=== PATIENT | female | born 1935 | race Caucasian/White ===

== ENCOUNTER 2019-02-11 11:16 | Inpatient (IN) | payer OTHER ==
[~2019-02-11] VITALS: Ht 165.1 cm; Wt 97.5 kg
[~2019-02-11 11:16] MED LIST: HYDROmorphone 2 MG/ML VIAL IV PRN; IV RINGERS,LACTATED 1000ML 1,000 ML IV SCH; LIDOCAINE 1% PF 2 ML VIAL. ID PRN; MORPHINE SULFATE 2 MG/ML VIAL. IV PRN; ONDANSETRON PF 4 MG/2 ML VIAL. IV PRN; PROCHLORPERAZINE 10 MG/2 ML VIAL. IV PRN
[2019-02-11] MEDS ORDERED: ceFAZolin 2GM PREMIX 2 GM/50 ML BAG IV ONE (12:00)
[2019-02-11] MEDS ORDERED: AMLO5TAB10 PO (12:03)
[2019-02-11] MEDS ORDERED: ALBU0.63 NEB (12:03)
[2019-02-11] MEDS ORDERED: AZEL23SP NS (12:05)
[2019-02-11] MEDS ORDERED: FOLI1TAB16 PO (12:06)
[2019-02-11] MEDS ORDERED: FLUT9.9S NS (12:06)
[2019-02-11] MEDS ORDERED: LEVO50TA5 PO (12:07)
[2019-02-11] MEDS ORDERED: VENTOLIN HFA18 GM INH (12:07)
[2019-02-11] MEDS ORDERED: GELATIN SPONGE SIZE 100. ONE (12:07)
[2019-02-11] MEDS ORDERED: LIDOCAINE 1%/EPI 1:100,000 20 ML VIAL. ONE (12:07)
[2019-02-11] MEDS ORDERED: EPINEPHrine SYRINGE 1 MG/10 ML SYRINGE ONE (12:07)
[2019-02-11] MEDS ORDERED: MUPIROCIN 2 % NASAL OINTMENT 22GM TUBE. ONE (12:07)
[2019-02-11] MEDS ORDERED: LISI-130 PO (12:08)
[2019-02-11] MEDS ORDERED: MONT10TA9 PO (12:10)
[2019-02-11] MEDS ORDERED: GLYCOPYRROLATE 1 MG/5 ML VIAL. ONE (13:40)
[2019-02-11] MEDS ORDERED: ROCURONIUM 50 MG/5 ML VIAL. ONE (13:41)
[2019-02-11] MEDS ORDERED: NEOSTIGMINE METHYLSULFATE 5 MG/5 ML SYRINGE. ONE (13:42)
[2019-02-11] MEDS ORDERED: fentaNYL PF VIAL 100 MCG/2 ML VIAL ONE ×4 (13:42→19:32)
[2019-02-11] MEDS ORDERED: OXYMETAZOLINE 0.05% NASAL SPRAY 30ML BOTTLE. NS ONE (13:43)
[2019-02-11] MEDS ORDERED: ePHEDrine PF IN SALINE 50 MG/10 ML SYRINGE. IV ONE (14:35)
[2019-02-11] MEDS ORDERED: hydrALAZINE 20 MG/ML VIAL. ONE (15:19)
[2019-02-11] MEDS ORDERED: CIPROFLOXACIN 0.3% OPHTH SOLUTION 5ML BOTTLE. AU ONE (15:45)
--- NOTE | 2019-02-11 17:32 | PDOC4 ---
IMMEDIATE POST OP NOTE Date: Feb 11, 2019 Pre-Op Diagnosis left tympanic membrane perforation, left chronic otitis media, left chronic mastoiditis, left mixed hearing loss, bilateral eustachian tube dysfunction Post-Op Diagnosis same as above Procedure Performed left tympanomastoidectomy, bilateral eustachian tube dilation Surgeon Dr. Arcelia Pacheco Carpenters Helper none Anesthesiologist Dr. Martinez Anesthesia Type: General Blood Loss 25mL Specimens Obtained left mastoid contents Findings 1. Sclerotic mastoid with mucoid discharge within mastoid cavity and middle ear 2. 25% perforation of posterior-inferior tympanic membrane 3. Ossicles intact and mobile Complications none Operative Note #[id number] ARCELIA PACHECO MD Feb 11, 2019 17:32
[2019-02-11] MEDS: fentaNYL PF VIAL 100 MCG/2 ML VIAL IV PRN ×5 (17:55→21:12)
[2019-02-11] MEDS ORDERED: MUPI22OI2 TP (18:28)
[2019-02-11] MEDS ORDERED: AMOX1TAB61 PO (18:32)
[2019-02-11] MEDS ORDERED: OXYC1TAB15 PO (18:33)
[2019-02-11] MEDS ORDERED: ONDA4TAB7 SL (18:35)
[2019-02-11] MEDS ORDERED: FLOXIN LEFT EAR (18:36)
--- NOTE | 2019-02-11 18:58 | OP ---
DATE OF SURGERY: 02/11/2019 PREOPERATIVE DIAGNOSES: Left tympanic membrane perforation, left chronic otitis media, left chronic mastoiditis, left-sided mixed hearing loss and bilateral eustachian tube dysfunction. POSTOPERATIVE DIAGNOSES: Left tympanic membrane perforation, left chronic otitis media, left chronic mastoiditis, left-sided mixed hearing loss and bilateral eustachian tube dysfunction. PROCEDURE PERFORMED: Left tympanomastoidectomy and bilateral eustachian tube dilation. SURGEON: Arcelia Pacheco MD ANESTHESIA: General endotracheal anesthesia. ANESTHESIOLOGIST: Dr. Martinez. ESTIMATED BLOOD LOSS: 25 mL. SPECIMENS OBTAINED: Left mastoid content was sent for permanent pathology. INDICATIONS FOR SURGERY: The patient is an 84-year-old female with a history of chronic eustachian tube dysfunction requiring multiple sets of pressure equalization tubes in the past. The patient's last set of tubes was approximately 6-7 years ago and resulted in chronic bilateral tympanic membrane perforations. For the past 4 months, the patient has had purulent discharge from the left tympanic membrane that has been refractory to antibiotic eardrops as well as oral antibiotics. After meeting maximum medical therapy and having continued infection, the decision was made the patient undergo the above procedure after risks, benefits, and alternatives of surgery were thoroughly discussed with the patient and informed consent was obtained. INTRAOPERATIVE FINDINGS: 1. A sclerotic mastoid with mucoid discharge within the mastoid cavity and middle ear. 2. A 25% perforation of the posterior inferior tympanic membrane. 3. The ossicular chain was intact and mobile. DESCRIPTION OF PROCEDURE: The patient was brought back to room per anesthesia and intubated in the standard fashion. The patient was then turned 90 degrees in the room. The microscope was used to visualize the patient's left external auditory canal. The patient was found to have a 25% perforation on the inferior aspect of the tympanic membrane. All cerumen was removed from the external auditory canal and a 4-quadrant block of the ear canal was performed using 1% lidocaine with 1:100,000 epinephrine. I also injected the planned postauricular incision in a subcutaneous fashion with 1% lidocaine with 1:100,000 epinephrine. Afrin-soaked pledgets were then inserted in the patient's bilateral nasal cavity. The patient was prepped and draped in the standard fashion. I then used a 30-degree scope to visualize the patient's bilateral nasal cavity. I visualized the patient's nasopharynx. The patient was found to have no significant adenoid tissue within the nasopharynx. I visualized the patient's left eustachian tube orifice. I then placed the Entellus eustachian tube dilation probe and that had been configured to the eustachian tube, was gently inserted into the eustachian tube orifice until the 2 cm jeremie. The balloon was then placed over the probe and insufflated to 12 atmospheres of pressure for 2 minutes. The balloon and probe were then subsequently removed from the eustachian tube orifice and there was no obvious evidence of trauma. An identical procedure was then performed on the right side. After this was completed, the Afrin-soaked pledgets were inserted in the nose for several minutes and subsequently removed. The patient was then redraped and prepped for the left ear surgery. I then thoroughly irrigated the left external auditory canal. The perforation was identified. It was a 25% perforation of the inferior tympanic membrane with some slight granulation tissue posteriorly. I used a Katz pick followed by cup forceps to freshen the edge of the perforation circumferentially and remove any granulation tissue. I then used a curved tympanostomy blade to make a 4 mm incision lateral to the annulus posteriorly. I used a straight blade to make these vertical incisions at 6 and 12 o'clock. I then gently elevated the skin flap in both directions with a house round knife. Topical epinephrine on Gelfoam was placed within the external auditory canal. I then used a 15 blade to make my postauricular incision. I elevated the ear anteriorly. I then harvested a 1 x 1 cm piece of temporalis fascia, this was flattened and dried on the back table. An inverted 7 Palva flap was then incised through the periosteum using the Bovie electrocautery as it elevated the periosteum anteriorly using a Nicholaspert retractor. Once I entered into the external auditory canal, I used a Weitlaner to retract the periosteum. I then under the microscopic guidance elevated the skin of the posterior external auditory canal until I could make communication with my previous incisions. A [place] drain was then placed to elevate the ear anteriorly. Under microscopic guidance, I then elevated the tympanomeatal flap in the standard way using a house round knife followed by a Gimmick elevator. Once I entered into the middle ear, I found thick mucoid discharge present within the middle ear, this was fully aspirated. The ossicular chain was identified. On palpation of the malleus, there was good mobility of the incudostapedial joint. I then performed a mastoidectomy on the side in a standard fashion. Using a 4 x 8 mm round cutting blade, I drilled the mastoid cavity down to Estefani's septum. At this location and at this side, there was significant sclerosis of the mastoid air cells. At Estefani's septum, I dissected through the Estefani's septum and entered into the mastoid and epitympanum by drilling away this Estefani's septum. There was thick mucoid discharge present within this area as well. I entered into the epitympanum in a standard fashion. The limits of my dissection for the mastoidectomy were the tegmen superiorly, the ear canal anteriorly and the sigmoid sinus posteriorly. Once I had drilled away all of the septations, I thoroughly irrigated the middle ear, epitympanum and mastoid using normal saline. There was good flow of the irrigation through the epitympanum and no evidence of attic block. After this was completed, ciprofloxacin-soaked Gelfoam was placed within the epitympanum and mastoid. I then further packed the middle ear and eustachian tube orifice with ciprofloxacin-soaked Gelfoam. I then placed the flattened piece of temporalis fascia and dried and this was placed as a medial graft to the tympanic membrane perforation medial to the tympanic membrane. I then laid the tympanomeatal flap back in the correct position and ensured good contact between circumferentially at the site of perforation between the graft and the tympanomeatal flap, tympanic membrane. I then packed Gelfoam lateral to the tympanic membrane to sandwich the graft together. The [place] drain was then removed. The skin of the external auditory canal was laid back in the correct position and I ensured good eversion of all the skin edges. Ciprofloxacin-soaked Gelfoam was placed further within the middle ear canal and along all the incisions. Mupirocin ointment was then placed in the lateral external auditory canal. Postauricularly, I closed the periosteum using simple interrupted sutures of 3-0 Vicryl. I then placed buried interrupted sutures of 4-0 Vicryl to close the deep dermis and a running locking suture of 5-0 chromic was used to close the skin. Mupirocin ointment was placed along the postauricular incision. There was a slight tear in the skin anteriorly from elevating the ear forward and an ointment was placed along this, it was not deep enough to require any suturing. A Glenn dressing was then applied in the standard fashion. The patient was turned back over to anesthesia and extubated without complication. All sponge, needle and instrument counts were correct at the end of the case. COMPLICATIONS: None. DISPOSITION: Stable and transferred to recovery room. ARCELIA PACHECO MD DR: LINDA/annabel JOB#: [id number] / [id number] LORENA
[2019-02-11] MEDS ORDERED: KETOROLAC 30 MG/ML VIAL. IV PRN (20:15)
[2019-02-11] MEDS ORDERED: ACETAMINOPHEN 500 MG TABLET PO PRN (20:15)
[2019-02-11] MEDS ORDERED: MORPHINE SULFATE 2 MG/ML VIAL. IV PRN (20:45)
[2019-02-11] MEDS: MUPIROCIN 2 % NASAL OINTMENT 22GM TUBE. TP SCH (21:00)
[2019-02-11 21:10] VITALS: BP 208/66
[2019-02-11] MEDS ORDERED: ALBUTEROL SULFATE 2.5 MG/3 ML NEBU. NEB PRN (21:15)
[2019-02-11 21:25] VITALS: BP 174/42
[2019-02-11 21:55] VITALS: BP 172/49
[2019-02-11 22:25] VITALS: BP 161/37
[2019-02-11] MEDS: oxyCODONE/APAP 5/325 1 TAB TABLET PO PRN (22:59)
[2019-02-11 23:25] VITALS: BP 158/67
[2019-02-12] VITALS (7 sets, daily range): BP systolic 127–154; BP diastolic 45–70
[2019-02-12] MEDS: LEVOTHYROXINE 50 MCG TABLET PO SCH (06:05)
[2019-02-12] MEDS: oxyCODONE/APAP 5/325 1 TAB TABLET PO PRN ×3 (06:05→21:16)
[2019-02-12] MEDS: LISINOPRIL 20 MG TABLET PO SCH ×2 (09:00→10:00)
[2019-02-12] MEDS: FOLIC ACID 1 MG TABLET. PO SCH ×2 (09:00→10:00)
[2019-02-12] MEDS: AMOXICILLIN/K CLAV 875/125MG TABLET. PO SCH ×3 (09:00→21:16)
[2019-02-12] MEDS: AZELASTINE NASAL SPRAY 30ML BOTTLE. NS SCH (10:02)
[2019-02-12] MEDS: FLUTICASONE 50MCG/NASAL SPRAY 16GM BOTTLE. NS SCH (10:04)
[2019-02-12] MEDS: MUPIROCIN 2 % NASAL OINTMENT 22GM TUBE. TP SCH ×3 (10:04→21:00)
--- NOTE | 2019-02-12 11:18 | SNU/HH DC ---
DISCHARGE WITH HOME HEALTH DISCHARGE INFORMATION: Condition on Discharge: Stable CODE STATUS: Code Status: Full HOME HEALTH: Face to Face: I certify this patient is under my care and that I, or a nurse practitioner or physician's assistant credit manager working with me, had a face to face encounter that meets the physician face to face encounter requirements with this patient on []. Medical Complications: Other (vertigo) RN For Eval/Treatment: Yes Physical Therapy For: Evalulation/Treatment Occupational Therapy For: Evaluation/Treatment Home Health Aide For: Self-care RECRUITING TEAM LEAD For: Community Resources Pt Meets Homebound Status: Poor coordination w/ amb. POST DISCHARGE ORDERS: Activity Instructions for Disc: Bedrest today DIET AFTER DISCHARGE: Cardiac CERTIFICATION STATEMENT: Certification Statement: Certification Statement: Based on the above finding, I certify that this patient is confined to the home and needs intermittent snf care, physical therapy and/or speech therapy, or continues to need occupational therapy.~ This patient is under my care, and I have initiated the establishment of the plan of care.~ This patient will be followed by myself or a community physician who will periodically review the plan of care. Home Meds Reported Medications [floxin] 0.3% BTL No Conflict Check, 4-5 DROP LEFT EAR BID 02/11/19 Ondansetron Hcl (ZOFRAN) 4 Mg Tablet, 1 TAB SL Q6HRS PRN for NAUSEA/VOMITING, #20 TAB 02/11/19 Oxycodone/Apap 5-325 (PERCOCET 5-325 MG TABLET ) 1 Each Tablet, 1 TAB PO PRN Q6HRS PRN for PAIN, #20 TAB 0 Refills 02/11/19 Amoxicillin/Potassium Clav (AUGMENTIN 875-125 TABLET) 1 Each Tablet, 1 TAB PO BID PRN for SEE COMMENTS, #28 TAB 0 Refills 02/11/19 Mupirocin (MUPIROCIN OINTMENT) 22 Gm Oint...g., 1 DOUG TP TID for WOUND CARE, #1 TUBE 02/11/19 Montelukast Sodium (MONTELUKAST SODIUM TABLET) 10 Mg Tablet, 1 TAB PO DAILY for ALLERGIES, #30 TAB 5 Refills 02/11/19 Lisinopril (LISINOPRIL) 40 Mg Tablet, 1 TAB PO DAILY for B/P, #30 TAB 5 Refills 02/11/19 Levothyroxine Sodium (LEVOTHYROXINE SODIUM) 50 Mcg Tablet, 1 TAB PO DAILY for THYROID, #30 TAB 5 Refills 02/11/19 Albuterol Sulfate (VENTOLIN HFA INHALER) 18 Gm Hfa.aer.ad, 2 PUFF INH Q4HRS PRN for BREATHING, INHALER 0 Refills 02/11/19 Folic Acid (FOLIC ACID) 1 Mg Tablet, 1 TAB PO DAILY for VITAMIN, #90 TAB 1 Refill 02/11/19 Fluticasone Propionate (Flonase Allergy Relief) 9.9 Ml [place].susp, 2 SPRAYS NS DAILY for BREATHING, BOTTLE 02/11/19 Azelastine/Fluticasone (DYMISTA NASAL SPRAY) 23 Gm [place].pump, 1 SPRAY NS DAILY for BREATHING, #23 GM 6 Refills 02/11/19 Albuterol Sulfate (ALBUTEROL SULFATE NEB SOLN) 0.63 Mg/3 Ml Vial.neb, 1 VIAL NEB TID for BREATHING, #225 ML 02/11/19 JESSICA FREEMAN III DO Feb 12, 2019 11:17
--- NOTE | 2019-02-12 11:50 | SSS ---
ADMIT DATE: DATE OF DISCHARGE: 02/12/2019. CHIEF COMPLAINT: Postop day #1 tympanomastoidectomy. HOSPITAL COURSE: The patient is a pleasant 84-year-old female who had a tympanomastoidectomy yesterday by Dr. Arcelia Pacheco today. I saw and examined the patient. She is doing better and wants to go home. We plan to discharge if okay with her surgeon. PHYSICAL EXAMINATION: VITAL SIGNS: Temperature afebrile, pulse 90, respirations 18, blood pressure 144/90. GENERAL: She is alert, cooperative. HEART: Normal S1, S2. LUNGS: Clear. ABDOMEN: Soft. EXTREMITIES: No edema. SKIN: No rash. ENDOCRINE: No thyromegaly. LYMPHATICS: No cervical nodes. HEMATOPOIETIC: No bruising. PSYCHIATRIC: She is anxious. HEENT: She has clean dressing on the left ear. LABORATORY DATA: Not available. ASSESSMENT AND PLAN: Postop day #1, left tympanomastoidectomy. Clinically, she seems fine for discharge. I am going to set up home health. DISPOSITION: Home. ACTIVITY: As tolerated. DIET: Low sodium. MEDICATIONS: Please see the MRAD. TOTAL TIME: 32 minutes. JESSICA FREEMAN DO DR: CATHRYN/annabel JOB#: [id number] / [id number]
[2019-02-12] MEDS: CIPROFLOXACIN HCL 250 MG TABLET. PO SCH ×2 (14:17→21:16)
--- NOTE | 2019-02-12 14:17 | PDOC ---
PROGRESS NOTES Subjective Subjective Patient reports having dizziness since surgery. She is able to tolerate eating. Dizziness is worsened with changes in position. She also reports sore throat. Objective Objective Vital Signs Date Time Temp Pulse Resp B/P (MAP) Pulse Ox O2 Delivery O2 Flow Rate FiO2 02/12/19 14:05 92 Room Air 2.0 02/12/19 11:00 98.5 70 18 132/57 (82) 98.5 Intake and Output 02/12/19 07:00 Intake Total 1590 ml Output Total 350 ml Balance 1240 ml Intake Oral 240 ml IV Total 1350 ml Output Urine Total 300 ml Estimated Blood Loss 50 ml # Voids 1 Physical Exam Physical Exam Ear: left ear dressing n place, ecchymosis of postauricular area, no joseph bleeding. Eyes: No joseph nystagmus. EOMI Melanie-Hallpike: Symptomatically positive on left > right. No rotary nystagmus seen. Assessment Assessment 84 year old female s/p left tympanomastoidectomy to treat chronic mastoiditis. Patient admitted overnight due to elevated blood pressure and confusion after anesthesia. Her vitals are improved today. She is suffering dizziness postoperatively-- no joseph nystagmus. Likely due to left benign paroxysmal positional vertigo after surgery. This should improve with time. Plan Plan of Care - Patient to keep dressing intact another 24 hours. - Patient reports unable to tolerate amoxicillin, switched to ciprofloxacin - Start meclizine for dizziness. Patient also has zofran to take PRN nausea. - Physical therapy evaluation of dizziness and for treatment of suspected left BPPV. Order already written for home care by hospitalist. - Patient has follow up with me next weeks. - Appreciate hospitalist help in management of this patient with multiple co- morbidities. Comment Review of Relevant I have reviewed the following items jeremie (where applicable) has been applied. Medications Current Medications Ondansetron HCl (Zofran) 4 mg PRN Q6HRS PRN IV NAUSEA/VOMITING; Start 02/11/19 at 07:00; Stop 02/12/19 at 06:59; Status DC Fentanyl Citrate (Fentanyl 2ml Vial) 25 mcg PRN Q5MIN PRN IV MILD PAIN Last administered on 02/11/19at 18:25; Start 02/11/19 at 07:00; Stop 02/12/19 at 06:59; Status DC Fentanyl Citrate (Fentanyl 2ml Vial) 50 mcg PRN Q5MIN PRN IV MODERATE TO SEVERE PAIN Last administered on 02/11/19 21:12; Start 02/11/19 at 07:00; Stop 02/12/19 at 06:59; Status DC Morphine Sulfate (Morphine Sulfate) 1 mg PRN Q10MIN PRN IV SEVERE PAIN; Start 02/11/19 at 07:00; Stop 02/12/19 at 06:59; Status DC Ringer's Solution 1,000 ml @ 30 mls/hr Q24H IV Last administered on 02/11/19 12:32; Start 02/11/19 at 07:00; Stop 02/11/19 at 18:59; Status DC Lidocaine HCl (Xylocaine-Mpf 1% 2ml Vial) 2 ml PRN 1X PRN ID PRIOR TO IV START; Start 02/11/19 at 07:00; Stop 02/12/19 at 06:59; Status DC Hydromorphone HCl (Dilaudid) 0.5 mg PRN Q10MIN PRN IV SEV PAIN, Second choice; Start 02/11/19 at 07:00; Stop 02/12/19 at 06:59; Status DC Prochlorperazine Edisylate (Compazine) 5 mg PACU PRN PRN IV NAUSEA, MRX1; Start 02/11/19 at 07:00; Stop 02/12/19 at 06:59; Status DC Cefazolin Sodium/ Dextrose 50 ml @ 100 mls/hr 1X PREOP PRN IV PRIOR TO PROCED URE Last administered on 02/11/19 14:12; Start 02/11/19 at 06:00; Stop 02/11/19 at 18:00; Status DC Gelatin (Gelfoam Size 100) 1 each STK-MED ONCE .ROUTE Last administered on 02/11/19 15:30; Start 02/11/19 at 12:07; Stop 02/11/19 at 13:07; Status DC Mupirocin (Bactroban) 22 edda STK-MED ONCE .ROUTE Last administered on 02/11/19 16:47; Start 02/11/19 at 12:07; Stop 02/11/19 at 13:07; Status DC Epinephrine HCl (EPINEPHrine SYRINGE) 1 mg STK-MED ONCE .ROUTE Last administered on 4/25/19at 15:30; Start 02/11/19 at 12:07; Stop 02/11/19 at 13:07; Status DC Lidocaine/ Epinephrine (LIDOCAINE 1%-EPI 1:100,000 Multi-Dose) 20 ml STK-MED ONCE .ROUTE Last administered on 02/11/19at 14:24; Start 02/11/19 at 12:07; Stop 02/11/19 at 13:07; Status DC Glycopyrrolate (Robinul) 1 mg STK-MED ONCE .ROUTE ; Start 02/11/19 at 13:40; Stop 02/11/19 at 14:10; Status DC Rocuronium [place] (Zemuron) 50 mg STK-MED ONCE .ROUTE ; Start 02/11/19 at 13:41; Stop 02/11/19 at 14:10; Status DC Fentanyl Citrate (Fentanyl 2ml Vial) 100 mcg STK-MED ONCE .ROUTE ; Start 02/11/19 at 13:42; Stop 02/11/19 at 14:10; Status DC Neostigmine Methylsulfate (Neostigmine Methylsulfate) 5 mg STK-MED ONCE .ROUTE ; Start 02/11/19 at 13:42; Stop 02/11/19 at 14:10; Status DC Ephedrine Sulfate (ePHEDrine PF IN SALINE SYRINGE) 50 mg STK-MED ONCE IV ; Start 02/11/19 at 14:35; Stop 02/11/19 at 14:36; Status DC Oxymetazoline HCl (Afrin) 120 spray STK-MED ONCE NS ; Start 02/11/19 at 13:43; Stop 02/11/19 at 14:43; Status DC Fentanyl Citrate (Fentanyl 2ml Vial) 100 mcg STK-MED ONCE .ROUTE ; Start 02/11/19 at 14:43; Stop 02/11/19 at 14:44; Status DC Hydralazine HCl (Apresoline Inj) 20 mg STK-MED ONCE .ROUTE ; Start 02/11/19 at 15:19; Stop 02/11/19 at 15:20; Status DC Fentanyl Citrate (Fentanyl 2ml Vial) 100 mcg STK-MED ONCE .ROUTE ; Start 02/11/19 at 15:20; Stop 02/11/19 at 15:21; Status DC Ciprofloxacin (Ciloxan Ophth) 1 drop 1X ONCE AU Last administered on 02/11/19at 15:45; Start 02/11/19 at 15:45; Stop 02/11/19 at 15:46; Status DC Fentanyl Citrate (Fentanyl 2ml Vial) 100 mcg STK-MED ONCE .ROUTE ; Start 02/11/19 at 19:32; Stop 02/11/19 at 19:33; Status DC Amoxicillin/ Clavulanate Potassium (Augmentin 875/ 125mg) 1 tab BID PO ; Start 02/12/19 at 09:00 Acetaminophen (Tylenol) 1,000 mg PRN Q6HRS PRN PO MILD pain; Start 02/11/19 at 20:15 Ibuprofen (Motrin) 400 mg PRN Q6HRS PRN PO INFLAMMATION; Start 02/11/19 at 20:15 Ketorolac Tromethamine (Toradol 30mg Vial) 30 mg PRN Q6HRS PRN IV PAIN; Start 02/11/19 at 20:15; Stop 02/16/19 at 20:14 Oxycodone/ Acetaminophen (Percocet 5/325) 1 tab PRN Q6HRS PRN PO MODERATE-SEVER PAIN Last administered on 02/12/19at 14:05; Start 02/11/19 at 20:15 Morphine Sulfate (Morphine Sulfate) 1 mg PRN Q2HR PRN IV PAIN; Start 02/11/19 at 20:45 Folic Acid (Folic Acid) 1 mg DAILY PO ; Start 02/12/19 at 09:00 Lisinopril (Prinivil) 40 mg DAILY PO ; Start 02/12/19 at 09:00 Mupirocin (Bactroban) 1 edda TID TP Last administered on 02/12/19at 10:04; Start 02/11/19 at 21:00 Albuterol Sulfate (Ventolin Neb Soln) 2.5 mg PRN Q4HRS PRN NEB SHORTNESS OF BREATH; Start 02/11/19 at 21:15 Azelastine HCl (Astelin) 1 spray DAILY NS Last administered on 02/12/19at 10:02; Start 02/12/19 at 09:00 Fluticasone Propionate (Flonase) 2 spray DAILY NS Last administered on 02/12/19at 10:04; Start 02/12/19 at 09:00 Levothyroxine Sodium (Synthroid) 50 mcg DAILY06 PO Last administered on 02/12/19at 06:05; Start 02/12/19 at 06:00 Montelukast Sodium (Singulair) 10 mg QHS PO ; Start 02/12/19 at 21:00 Cefazolin Sodium/ Dextrose (Ancef 2gm Premix) 2 gm STK-MED ONCE IV ; Start 02/11/19 at 12:00; Stop 02/12/19 at 13:03; Status DC Meclizine HCl (Antivert) 12.5 mg PRN Q6HRS PRN PO DIZZINESS; Start 02/12/19 at 14:00 Ciprofloxacin (Cipro) 500 mg BID PO ; Start 02/12/19 at 14:30 Active Scripts Active Reported [floxin] 0.3% Btl 4-5 Drop LEFT EAR BID Zofran (Ondansetron Hcl) 4 Mg Tablet 1 Tab SL Q6HRS PRN Percocet 5-325 Mg Tablet (Oxycodone/Acetaminophen) 1 Each Tablet 1 Tab PO PRN Q6HRS PRN Augmentin 875-125 Tablet (Amoxicillin/Potassium Clav) 1 Each Tablet 1 Tab PO BID PRN Mupirocin Ointment (Mupirocin) 22 Gm Oint...g. 1 Edda TP TID Montelukast Sodium Tablet (Montelukast Sodium) 10 Mg Tablet 1 Tab PO DAILY Lisinopril 40 Mg Tablet 1 Tab PO DAILY Levothyroxine Sodium 50 Mcg Tablet 1 Tab PO DAILY Ventolin Hfa Inhaler (Albuterol Sulfate) 18 Gm Hfa.aer.ad 2 Puff INH Q4HRS PRN Folic Acid 1 Mg Tablet 1 Tab PO DAILY Flonase Allergy Relief (Fluticasone Propionate) 9.9 Ml Venus.susp 2 Sprays NS DAILY Dymista Nasal Venus (Azelastine/Fluticasone) 23 Gm Venus.pump 1 Venus NS DAILY Albuterol Sulfate Neb Soln (Albuterol Sulfate) 0.63 Mg/3 Ml Vial.neb 1 Vial NEB TID Vitals/I & O Vital Sign - Last 24 Hours 02/11/19 02/11/19 02/11/19 02/11/19 17:24 17:24 17:39 17:54 Temp 99.2 99.2 Pulse 64 65 67 Resp 20 20 20 B/P (MAP) 163/82 131/58 156/104 Pulse Ox 100 100 93 O2 Delivery Mask Simple Mask Simple Mask Room Air O2 Flow Rate 10 10 10 02/11/19 02/11/19 02/11/19 02/11/19 17:55 18:10 18:25 18:25 Temp 99.2 99.2 99.2 99.2 Pulse 60 52 Resp 22 20 20 20 B/P (MAP) 155/60 161/73 Pulse Ox 99 99 100 97 O2 Delivery Simple Mask Nasal Cannula Nasal Cannula Nasal Cannula O2 Flow Rate 10.0 2 2.0 2.0 02/11/19 02/11/19 02/11/19 02/11/19 18:40 18:55 19:00 19:10 Temp 98 98.0 98.0 98.0 98.0 98.0 Pulse 58 56 54 Resp 20 21 20 22 B/P (MAP) 169/59 110/53 178/65 Pulse Ox 100 98 99 O2 Delivery Nasal Cannula Nasal Cannula Nasal Cannula Nasal Cannula O2 Flow Rate 2.0 2.0 2.0 2.0 02/11/19 02/11/19 02/11/19 02/11/19 19:25 19:37 19:40 19:55 Temp 98.0 98.0 98.0 98.0 98.0 98.0 Pulse 56 50 54 Resp 21 23 21 B/P (MAP) 154/63 170/45 169/85 Pulse Ox 100 18 100 99 O2 Delivery Nasal Cannula Nasal Cannula Nasal Cannula Nasal Cannula O2 Flow Rate 2.0 2.0 2.0 2.0 02/11/19 02/11/19 02/11/19 02/11/19 20:10 20:25 21:10 21:10 Temp 98.0 98.0 97.6 98.0 98.0 97.6 Pulse 54 60 68 Resp 20 21 20 B/P (MAP) 138/68 165/71 208/66 (113) Pulse Ox 99 100 91 O2 Delivery Nasal Cannula Nasal Cannula Room Air Nasal Cannula O2 Flow Rate 2.0 2.0 2.0 2.0 02/11/19 02/11/19 02/11/19 02/11/19 21:12 21:25 21:55 22:25 Temp 97.6 98.1 98.1 97.6 98.1 98.1 Pulse 61 65 65 Resp 20 18 18 18 B/P (MAP) 174/42 (86) 172/49 (90) 161/37 (78) Pulse Ox 18 97 91 93 O2 Delivery Nasal Cannula Nasal Cannula Nasal Cannula Nasal Cannula O2 Flow Rate 2.0 2.0 2.0 2.0 02/11/19 02/11/19 02/12/19 02/12/19 22:59 23:25 00:25 03:05 Temp 98.4 98.3 98.0 98.4 98.3 98.0 Pulse 72 59 63 Resp 18 B/P (MAP) 158/67 (97) 150/45 (80) 153/51 (85) Pulse Ox 93 97 99 96 O2 Delivery Nasal Cannula Nasal Cannula Nasal Cannula Nasal Cannula O2 Flow Rate 2.0 2.0 2.0 02/12/19 02/12/19 02/12/19 02/12/19 06:05 07:00 07:10 11:00 Temp 98.2 98.5 98.2 98.5 Pulse 61 70 Resp B/P (MAP) 143/55 (84) 132/57 (82) Pulse Ox 96 91 91 92 O2 Delivery Room Air Nasal Cannula Room Air Nasal Cannula O2 Flow Rate 2.0 2.0 2.0 02/12/19 14:05 Pulse Ox 92 O2 Delivery Room Air O2 Flow Rate 2.0 Intake and Output 02/11/19 02/11/19 02/12/19 15:00 23:00 07:00 Intake Total 1350 ml 240 ml Output Total 350 ml Balance 1000 ml 240 ml KIKE PHILIPPE MD Feb 12, 2019 14:17
[2019-02-12] MEDS: MECLIZINE HCL 12.5 MG TABLET. PO PRN (15:10)
[2019-02-12] MEDS: LACTOBACILLUS RHAMNOSUS GG 1 CAPSULE. PO SCH (21:16)
[2019-02-12] MEDS: MONTELUKAST SODIUM 10 MG TABLET. PO SCH (21:16)
[2019-02-13 03:30] VITALS: BP 175/44
[2019-02-13] MEDS: oxyCODONE/APAP 5/325 1 TAB TABLET PO PRN ×4 (04:16→23:55)
[2019-02-13 06:03] LABS: BASO % 1 % (0-3); EOS # 0.2 x10^3/uL (0.0-0.7); EOS % 4 % (0-3); HEMATOCRIT 37.5 % (36.0-47.0); HEMOGLOBIN 12.1 g/dL (12.0-15.5); LYMPH # 0.5 x10^3/uL (1.0-4.8); LYMPH % 9 % (24-48); MEAN CORPUSCULAR HEMOGLOBIN 31 pg (25-35); MEAN CORPUSCULAR HGB CONC 32 g/dL (31-37); MEAN CORPUSCULAR VOLUME 95 fL (79-100); MONO # 0.6 x10^3/uL (0.0-1.1); MONO % 10 % (0-9); NEUT # 4.4 x10^3uL (1.8-7.7); NEUT % 77 % (31-73); PLATELET COUNT 150 x10^3/uL (140-400); RED BLOOD COUNT 3.97 x10^6/uL (3.50-5.40); RED CELL DISTRIBUTION WIDTH 13.9 % (11.5-14.5); WHITE BLOOD COUNT 5.8 x10^3/uL (4.0-11.0)
[2019-02-13 06:08] LABS: CALCIUM 8.7 mg/dL (8.5-10.1); CREATININE 1.3 mg/dL (0.6-1.0); GFR 39.1; POTASSIUM 4.1 mmol/L (3.5-5.1)
[2019-02-13] MEDS: LEVOTHYROXINE 50 MCG TABLET PO SCH (06:23)
[2019-02-13 07:00] VITALS: BP 159/57
[2019-02-13] MEDS: AMOXICILLIN/K CLAV 875/125MG TABLET. PO SCH (09:00)
[2019-02-13] MEDS: MECLIZINE HCL 12.5 MG TABLET. PO PRN ×2 (10:49→17:10)
[2019-02-13] MEDS: CIPROFLOXACIN HCL 250 MG TABLET. PO SCH ×2 (10:49→22:02)
[2019-02-13] MEDS: FOLIC ACID 1 MG TABLET. PO SCH (10:49)
[2019-02-13] MEDS: LACTOBACILLUS RHAMNOSUS GG 1 CAPSULE. PO SCH ×2 (10:49→22:02)
[2019-02-13 11:00] VITALS: BP 186/70
[2019-02-13] MEDS: LISINOPRIL 20 MG TABLET PO SCH (11:03)
[2019-02-13] MEDS: FLUTICASONE 50MCG/NASAL SPRAY 16GM BOTTLE. NS SCH (11:10)
[2019-02-13] MEDS: MUPIROCIN 2 % NASAL OINTMENT 22GM TUBE. TP SCH ×3 (11:10→21:00)
[2019-02-13] MEDS: AZELASTINE NASAL SPRAY 30ML BOTTLE. NS SCH (11:10)
--- NOTE | 2019-02-13 11:23 | PDOC ---
PROGRESS NOTES Chief Complaint Chief Complaint Tympanomastoidectomy History of Present Illness History of Present Illness Patient was seen resting in bed today, POD2. She states she didn't sleep well last night. States her "head was going to explode" She is not able to stand yet. She has vertigo and weakness. She does not feel well enough to go home. Vitals Vitals Vital Signs Date Time Temp Pulse Resp B/P (MAP) Pulse Ox O2 Delivery O2 Flow Rate FiO2 02/13/19 07:00 98.0 61 18 159/57 (91) 98 Nasal Cannula 2.0 98.0 Physical Exam General: Alert, Oriented X3, Cooperative, No acute distress Heart: Regular rate, Normal S1, Normal S2, No murmurs Lungs: Clear (No wheezes, rales, or rhonchi) Abdomen: Soft, No tenderness, No masses Extremities: No edema, Normal pulses, No tenderness/swelling Skin: No rashes, No breakdown, No significant lesion Labs LABS Laboratory Tests Test 02/13/19 05:10 White Blood Count 5.8 x10^3/uL (4.0-11.0) Red Blood Count 3.97 x10^6/uL (3.50-5.40) Hemoglobin 12.1 g/dL (12.0-15.5) Hematocrit 37.5 % (36.0-47.0) Mean Corpuscular Volume 95 fL (79-100) Mean Corpuscular Hemoglobin 31 pg (25-35) Mean Corpuscular Hemoglobin Concent 32 g/dL (31-37) Red Cell Distribution Width 13.9 % (11.5-14.5) Platelet Count 150 x10^3/uL (140-400) Neutrophils (%) (Auto) 77 % (31-73) Lymphocytes (%) (Auto) 9 % (24-48) Monocytes (%) (Auto) 10 % (0-9) Eosinophils (%) (Auto) 4 % (0-3) Basophils (%) (Auto) 1 % (0-3) Neutrophils # (Auto) 4.4 x10^3uL (1.8-7.7) Lymphocytes # (Auto) 0.5 x10^3/uL (1.0-4.8) Monocytes # (Auto) 0.6 x10^3/uL (0.0-1.1) Eosinophils # (Auto) 0.2 x10^3/uL (0.0-0.7) Basophils # (Auto) 0.0 x10^3/uL (0.0-0.2) Sodium Level 139 mmol/L (136-145) Potassium Level 4.1 mmol/L (3.5-5.1) Chloride Level 101 mmol/L (98-107) Carbon Dioxide Level 34 mmol/L (21-32) Anion Gap 4 (6-14) Blood Urea Nitrogen 16 mg/dL (7-20) Creatinine 1.3 mg/dL (0.6-1.0) Estimated GFR (Cockcroft-Gault) 39.1 Glucose Level 115 mg/dL (70-99) Calcium Level 8.7 mg/dL (8.5-10.1) Review of Systems Review of Systems Patient complains of vertigo and weakness Denies fevers, chills, N/V, CP, SOB, diarrhea. 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 Labs Laboratory Tests Test 02/13/19 05:10 White Blood Count 5.8 x10^3/uL (4.0-11.0) Red Blood Count 3.97 x10^6/uL (3.50-5.40) Hemoglobin 12.1 g/dL (12.0-15.5) Hematocrit 37.5 % (36.0-47.0) Mean Corpuscular Volume 95 fL (79-100) Mean Corpuscular Hemoglobin 31 pg (25-35) Mean Corpuscular Hemoglobin Concent 32 g/dL (31-37) Red Cell Distribution Width 13.9 % (11.5-14.5) Platelet Count 150 x10^3/uL (140-400) Neutrophils (%) (Auto) 77 % (31-73) Lymphocytes (%) (Auto) 9 % (24-48) Monocytes (%) (Auto) 10 % (0-9) Eosinophils (%) (Auto) 4 % (0-3) Basophils (%) (Auto) 1 % (0-3) Neutrophils # (Auto) 4.4 x10^3uL (1.8-7.7) Lymphocytes # (Auto) 0.5 x10^3/uL (1.0-4.8) Monocytes # (Auto) 0.6 x10^3/uL (0.0-1.1) Eosinophils # (Auto) 0.2 x10^3/uL (0.0-0.7) Basophils # (Auto) 0.0 x10^3/uL (0.0-0.2) Sodium Level 139 mmol/L (136-145) Potassium Level 4.1 mmol/L (3.5-5.1) Chloride Level 101 mmol/L (98-107) Carbon Dioxide Level 34 mmol/L (21-32) Anion Gap 4 (6-14) Blood Urea Nitrogen 16 mg/dL (7-20) Creatinine 1.3 mg/dL (0.6-1.0) Estimated GFR (Cockcroft-Gault) 39.1 Glucose Level 115 mg/dL (70-99) Calcium Level 8.7 mg/dL (8.5-10.1) Laboratory Tests Test 02/13/19 05:10 White Blood Count 5.8 x10^3/uL (4.0-11.0) Red Blood Count 3.97 x10^6/uL (3.50-5.40) Hemoglobin 12.1 g/dL (12.0-15.5) Hematocrit 37.5 % (36.0-47.0) Mean Corpuscular Volume 95 fL (79-100) Mean Corpuscular Hemoglobin 31 pg (25-35) Mean Corpuscular Hemoglobin Concent 32 g/dL (31-37) Red Cell Distribution Width 13.9 % (11.5-14.5) Platelet Count 150 x10^3/uL (140-400) Neutrophils (%) (Auto) 77 % (31-73) Lymphocytes (%) (Auto) 9 % (24-48) Monocytes (%) (Auto) 10 % (0-9) Eosinophils (%) (Auto) 4 % (0-3) Basophils (%) (Auto) 1 % (0-3) Neutrophils # (Auto) 4.4 x10^3uL (1.8-7.7) Lymphocytes # (Auto) 0.5 x10^3/uL (1.0-4.8) Monocytes # (Auto) 0.6 x10^3/uL (0.0-1.1) Eosinophils # (Auto) 0.2 x10^3/uL (0.0-0.7) Basophils # (Auto) 0.0 x10^3/uL (0.0-0.2) Sodium Level 139 mmol/L (136-145) Potassium Level 4.1 mmol/L (3.5-5.1) Chloride Level 101 mmol/L (98-107) Carbon Dioxide Level 34 mmol/L (21-32) Anion Gap 4 (6-14) Blood Urea Nitrogen 16 mg/dL (7-20) Creatinine 1.3 mg/dL (0.6-1.0) Estimated GFR (Cockcroft-Gault) 39.1 Glucose Level 115 mg/dL (70-99) Calcium Level 8.7 mg/dL (8.5-10.1) Medications Current Medications Ondansetron HCl (Zofran) 4 mg PRN Q6HRS PRN IV NAUSEA/VOMITING; Start 02/11/19 at 07:00; Stop 02/12/19 at 06:59; Status DC Fentanyl Citrate (Fentanyl 2ml Vial) 25 mcg PRN Q5MIN PRN IV MILD PAIN Last administered on 02/11/19at 18:25; Start 02/11/19 at 07:00; Stop 02/12/19 at 06:59; Status DC Fentanyl Citrate (Fentanyl 2ml Vial) 50 mcg PRN Q5MIN PRN IV MODERATE TO SEVERE PAIN Last administered on 02/11/19at 21:12; Start 02/11/19 at 07:00; Stop 02/12/19 at 06:59; Status DC Morphine Sulfate (Morphine Sulfate) 1 mg PRN Q10MIN PRN IV SEVERE PAIN; Start 02/11/19 at 07:00; Stop 02/12/19 at 06:59; Status DC Ringer's Solution 1,000 ml @ 30 mls/hr Q24H IV Last administered on 02/11/19at 12:32; Start 02/11/19 at 07:00; Stop 02/11/19 at 18:59; Status DC Lidocaine HCl (Xylocaine-Mpf 1% 2ml Vial) 2 ml PRN 1X PRN ID PRIOR TO IV START; Start 02/11/19 at 07:00; Stop 02/12/19 at 06:59; Status DC Hydromorphone HCl (Dilaudid) 0.5 mg PRN Q10MIN PRN IV SEV PAIN, Second choice; Start 02/11/19 at 07:00; Stop 02/12/19 at 06:59; Status DC Prochlorperazine Edisylate (Compazine) 5 mg PACU PRN PRN IV NAUSEA, MRX1; Start 02/11/19 at 07:00; Stop 02/12/19 at 06:59; Status DC Cefazolin Sodium/ Dextrose 50 ml @ 100 mls/hr 1X PREOP PRN IV PRIOR TO PROCEDURE Last administered on 02/11/19at 14:12; Start 02/11/19 at 06:00; Stop 02/11/19 at 18:00; Status DC Gelatin (Gelfoam Size 100) 1 each STK-MED ONCE .ROUTE Last administered on 02/11/19at 15:30; Start 02/11/19 at 12:07; Stop 02/11/19 at 13:07; Status DC Mupirocin (Bactroban) 22 kasia STK-MED ONCE .ROUTE Last administered on 02/11/19at 16:47; Start 02/11/19 at 12:07; Stop 02/11/19 at 13:07; Status DC Epinephrine HCl (EPINEPHrine SYRINGE) 1 mg STK-MED ONCE .ROUTE Last administered on 02/11/19at 15:30; Start 02/11/19 at 12:07; Stop 02/11/19 at 13:07; Status DC Lidocaine/ Epinephrine (LIDOCAINE 1%-EPI 1:100,000 Multi-Dose) 20 ml STK-MED ONCE .ROUTE Last administered on 02/11/19at 14:24; Start 02/11/19 at 12:07; Stop 02/11/19 at 13:07; Status DC Glycopyrrolate (Robinul) 1 mg STK-MED ONCE .ROUTE ; Start 02/11/19 at 13:40; Stop 02/11/19 at 14:10; Status DC Rocuronium [place] (Zemuron) 50 mg STK-MED ONCE .ROUTE ; Start 02/11/19 at 13:41; Stop 02/11/19 at 14:10; Status DC Fentanyl Citrate (Fentanyl 2ml Vial) 100 mcg STK-MED ONCE .ROUTE ; Start 02/11/19 at 13:42; Stop 02/11/19 at 14:10; Status DC Neostigmine Methylsulfate (Neostigmine Methylsulfate) 5 mg STK-MED ONCE .ROUTE ; Start 02/11/19 at 13:42; Stop 02/11/19 at 14:10; Status DC Ephedrine Sulfate (ePHEDrine PF IN SALINE SYRINGE) 50 mg STK-MED ONCE IV ; Start 02/11/19 at 14:35; Stop 02/11/19 at 14:36; Status DC Oxymetazoline HCl (Afrin) 120 spray STK-MED ONCE NS ; Start 02/11/19 at 13:43; Stop 02/11/19 at 14:43; Status DC Fentanyl Citrate (Fentanyl 2ml Vial) 100 mcg STK-MED ONCE .ROUTE ; Start 02/11/19 at 14:43; Stop 02/11/19 at 14:44; Status DC Hydralazine HCl (Apresoline Inj) 20 mg STK-MED ONCE .ROUTE ; Start 02/11/19 at 15:19; Stop 02/11/19 at 15:20; Status DC Fentanyl Citrate (Fentanyl 2ml Vial) 100 mcg STK-MED ONCE .ROUTE ; Start 02/11/19 at 15:20; Stop 02/11/19 at 15:21; Status DC Ciprofloxacin (Ciloxan Ophth) 1 drop 1X ONCE AU Last administered on 02/11/19at 15:45; Start 02/11/19 at 15:45; Stop 02/11/19 at 15:46; Status DC Fentanyl Citrate (Fentanyl 2ml Vial) 100 mcg STK-MED ONCE .ROUTE ; Start 02/11/19 at 19:32; Stop 02/11/19 at 19:33; Status DC Amoxicillin/ Clavulanate Potassium (Augmentin 875/ 125mg) 1 tab BID PO Last administered on 02/12/19at 21:16; Start 02/12/19 at 09:00 Acetaminophen (Tylenol) 1,000 mg PRN Q6HRS PRN PO MILD pain; Start 02/11/19 at 20:15 Ibuprofen (Motrin) 400 mg PRN Q6HRS PRN PO INFLAMMATION; Start 02/11/19 at 20:15 Ketorolac Tromethamine (Toradol 30mg Vial) 30 mg PRN Q6HRS PRN IV PAIN; Start 02/11/19 at 20:15; Stop 02/16/19 at 20:14 Oxycodone/ Acetaminophen (Percocet 5/325) 1 tab PRN Q6HRS PRN PO MODERATE-SEVER PAIN Last administered on 02/13/19at 04:16; Start 02/11/19 at 20:15 Morphine Sulfate (Morphine Sulfate) 1 mg PRN Q2HR PRN IV PAIN; Start 02/11/19 at 20:45 Folic Acid (Folic Acid) 1 mg DAILY PO ; Start 02/12/19 at 09:00 Lisinopril (Prinivil) 40 mg DAILY PO ; Start 02/12/19 at 09:00 Mupirocin (Bactroban) 1 kasia TID TP Last administered on 02/12/19at 14:12; Start 02/11/19 at 21:00 Albuterol Sulfate (Ventolin Neb Soln) 2.5 mg PRN Q4HRS PRN NEB SHORTNESS OF BREATH; Start 02/11/19 at 21:15 Azelastine HCl (Astelin) 1 spray DAILY NS Last administered on 02/12/19at 10:02; Start 02/12/19 at 09:00 Fluticasone Propionate (Flonase) 2 spray DAILY NS Last administered on 02/12/19at 10:04; Start 02/12/19 at 09:00 Levothyroxine Sodium (Synthroid) 50 mcg DAILY06 PO Last administered on 02/13/19at 06:23; Start 02/12/19 at 06:00 Montelukast Sodium (Singulair) 10 mg QHS PO Last administered on 02/12/19at 21:16; Start 02/12/19 at 21:00 Cefazolin Sodium/ Dextrose (Ancef 2gm Premix) 2 gm STK-MED ONCE IV ; Start 02/11/19 at 12:00; Stop 02/12/19 at 13:03; Status DC Meclizine HCl (Antivert) 12.5 mg PRN Q6HRS PRN PO DIZZINESS Last administered on 02/12/19at 15:10; Start 02/12/19 at 14:00 Ciprofloxacin (Cipro) 500 mg BID PO Last administered on 02/12/19at 21:16; Start 02/12/19 at 14:30 Lactobacillus Rhamnosus (Culturelle) 1 cap BID PO Last administered on 02/12/19at 21:16; Start 02/12/19 at 21:00 Active Scripts Active Reported [floxin] 0.3% Btl 4-5 Drop LEFT EAR BID Zofran (Ondansetron Hcl) 4 Mg Tablet 1 Tab SL Q6HRS PRN Percocet 5-325 Mg Tablet (Oxycodone/Acetaminophen) 1 Each Tablet 1 Tab PO PRN Q6HRS PRN Augmentin 875-125 Tablet (Amoxicillin/Potassium Clav) 1 Each Tablet 1 Tab PO BID PRN Mupirocin Ointment (Mupirocin) 22 Gm Oint...g. 1 Kasia TP TID Montelukast Sodium Tablet (Montelukast Sodium) 10 Mg Tablet 1 Tab PO DAILY Lisinopril 40 Mg Tablet 1 Tab PO DAILY Levothyroxine Sodium 50 Mcg Tablet 1 Tab PO DAILY Ventolin Hfa Inhaler (Albuterol Sulfate) 18 Gm Hfa.aer.ad 2 Puff INH Q4HRS PRN Folic Acid 1 Mg Tablet 1 Tab PO DAILY Flonase Allergy Relief (Fluticasone Propionate) 9.9 Ml [place].susp 2 Sprays NS DAILY Dymista Nasal [place] (Azelastine/Fluticasone) 23 Gm [place].pump 1 [place] NS DAILY Albuterol Sulfate Neb Soln (Albuterol Sulfate) 0.63 Mg/3 Ml Vial.neb 1 Vial NEB TID Vitals/I & O Vital Sign - Last 24 Hours 02/12/19 02/12/19 02/12/19 02/12/19 14:05 15:00 15:11 19:15 Temp 98.1 97.8 98.1 97.8 Pulse 88 57 Resp 18 18 B/P (MAP) 127/55 (79) 154/70 (98) Pulse Ox 92 90 92 100 O2 Delivery Room Air Nasal Cannula Nasal Cannula O2 Flow Rate 2.0 2.0 2.0 2.0 02/12/19 02/12/19 02/12/19 02/13/19 19:55 21:16 23:20 03:30 Temp 98.1 98.1 98.1 98.1 Pulse 62 58 Resp 18 20 B/P (MAP) 150/48 (82) 175/44 (87) Pulse Ox 99 100 O2 Delivery Room Air Room Air Nasal Cannula Nasal Cannula O2 Flow Rate 2.0 2.0 02/13/19 02/13/19 02/13/19 04:16 05:16 07:00 Temp 98.0 98.0 Pulse 61 Resp 17 18 B/P (MAP) 159/57 (91) Pulse Ox 98 O2 Delivery Nasal Cannula Room Air Nasal Cannula O2 Flow Rate 2.0 2.0 Intake and Output 02/12/19 02/12/19 02/13/19 14:59 22:59 06:59 Intake Total 480 ml Balance 480 ml JESSICA FREEMAN III DO Feb 13, 2019 11:23
[2019-02-13 15:00] VITALS: BP 145/55
[2019-02-13] MEDS: MUPIROCIN 2 % TOPICAL CREAM 30GM TUBE. TP SCH ×2 (17:11→22:02)
[2019-02-13 19:00] VITALS: BP 139/53
[2019-02-13] MEDS: MONTELUKAST SODIUM 10 MG TABLET. PO SCH (22:02)
[2019-02-13 23:00] VITALS: BP 141/58
[2019-02-14] MEDS: MECLIZINE HCL 12.5 MG TABLET. PO PRN ×2 (00:01→20:43)
[2019-02-14 02:37] VITALS: BP 158/55
[2019-02-14] MEDS: oxyCODONE/APAP 5/325 1 TAB TABLET PO PRN ×2 (06:01→20:43)
[2019-02-14] MEDS: LEVOTHYROXINE 50 MCG TABLET PO SCH (06:01)
[2019-02-14 07:00] VITALS: BP 165/55
[2019-02-14 08:47] LABS: BASO % 1 % (0-3); EOS # 0.2 x10^3/uL (0.0-0.7); EOS % 4 % (0-3); HEMATOCRIT 35.3 % (36.0-47.0); HEMOGLOBIN 11.5 g/dL (12.0-15.5); LYMPH # 0.6 x10^3/uL (1.0-4.8); LYMPH % 12 % (24-48); MEAN CORPUSCULAR HEMOGLOBIN 31 pg (25-35); MEAN CORPUSCULAR HGB CONC 33 g/dL (31-37); MEAN CORPUSCULAR VOLUME 94 fL (79-100); MONO # 0.6 x10^3/uL (0.0-1.1); MONO % 12 % (0-9); NEUT # 3.7 x10^3uL (1.8-7.7); NEUT % 72 % (31-73); PLATELET COUNT 147 x10^3/uL (140-400); RED BLOOD COUNT 3.74 x10^6/uL (3.50-5.40); RED CELL DISTRIBUTION WIDTH 13.7 % (11.5-14.5); WHITE BLOOD COUNT 5.1 x10^3/uL (4.0-11.0)
[2019-02-14] MEDS: MUPIROCIN 2 % NASAL OINTMENT 22GM TUBE. TP SCH ×3 (09:00→20:46)
[2019-02-14 09:01] LABS: CALCIUM 8.7 mg/dL (8.5-10.1); CREATININE 1.3 mg/dL (0.6-1.0); GFR 39.1; POTASSIUM 4.3 mmol/L (3.5-5.1)
[2019-02-14] MEDS: LACTOBACILLUS RHAMNOSUS GG 1 CAPSULE. PO SCH ×2 (10:17→20:43)
[2019-02-14] MEDS: LISINOPRIL 20 MG TABLET PO SCH (10:17)
[2019-02-14] MEDS: FOLIC ACID 1 MG TABLET. PO SCH (10:18)
[2019-02-14] MEDS: CIPROFLOXACIN HCL 250 MG TABLET. PO SCH ×2 (10:19→20:43)
[2019-02-14] MEDS: AZELASTINE NASAL SPRAY 30ML BOTTLE. NS SCH (10:20)
[2019-02-14] MEDS: FLUTICASONE 50MCG/NASAL SPRAY 16GM BOTTLE. NS SCH (10:21)
[2019-02-14] MEDS: MUPIROCIN 2 % TOPICAL CREAM 30GM TUBE. TP SCH ×3 (10:23→20:46)
[2019-02-14 11:00] VITALS: BP 166/74
--- NOTE | 2019-02-14 12:44 | PDOC ---
PROGRESS NOTES Chief Complaint Chief Complaint Tympanomastoidectomy History of Present Illness History of Present Illness Patient was seen sitting in a chair today, POD3. Her daughter, Gin, was in the room today. She is the DOPA and should be called with any concerns. The patient is not well enough to go home. Gin would like her to go to a [facility]. The patient is having some confusion today. Vitals Vitals Vital Signs Date Time Temp Pulse Resp B/P (MAP) Pulse Ox O2 Delivery O2 Flow Rate FiO2 02/14/19 11:00 98.0 60 16 166/74 (104) 97 Nasal Cannula 2.0 98.0 Physical Exam General: Alert, Cooperative, No acute distress Heart: Regular rate, Normal S1, Normal S2, No murmurs Lungs: Clear (No wheezes, rales, or rhonchi) Abdomen: Soft, No tenderness, No masses Extremities: No edema, Normal pulses, No tenderness/swelling Skin: No rashes, No breakdown, No significant lesion Labs LABS Laboratory Tests Test 02/14/19 08:05 White Blood Count 5.1 x10^3/uL (4.0-11.0) Red Blood Count 3.74 x10^6/uL (3.50-5.40) Hemoglobin 11.5 g/dL (12.0-15.5) Hematocrit 35.3 % (36.0-47.0) Mean Corpuscular Volume 94 fL (79-100) Mean Corpuscular Hemoglobin 31 pg (25-35) Mean Corpuscular Hemoglobin Concent 33 g/dL (31-37) Red Cell Distribution Width 13.7 % (11.5-14.5) Platelet Count 147 x10^3/uL (140-400) Neutrophils (%) (Auto) 72 % (31-73) Lymphocytes (%) (Auto) 12 % (24-48) Monocytes (%) (Auto) 12 % (0-9) Eosinophils (%) (Auto) 4 % (0-3) Basophils (%) (Auto) 1 % (0-3) Neutrophils # (Auto) 3.7 x10^3uL (1.8-7.7) Lymphocytes # (Auto) 0.6 x10^3/uL (1.0-4.8) Monocytes # (Auto) 0.6 x10^3/uL (0.0-1.1) Eosinophils # (Auto) 0.2 x10^3/uL (0.0-0.7) Basophils # (Auto) 0.0 x10^3/uL (0.0-0.2) Sodium Level 140 mmol/L (136-145) Potassium Level 4.3 mmol/L (3.5-5.1) Chloride Level 100 mmol/L (98-107) Carbon Dioxide Level 35 mmol/L (21-32) Anion Gap 5 (6-14) Blood Urea Nitrogen 11 mg/dL (7-20) Creatinine 1.3 mg/dL (0.6-1.0) Estimated GFR (Cockcroft-Gault) 39.1 Glucose Level 100 mg/dL (70-99) Calcium Level 8.7 mg/dL (8.5-10.1) Review of Systems Review of Systems Patient is having some vertigo. She denies fevers, chills, N/V, CP, SOB, diarrhea. 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 It is currently not in the hospital. Her daughter has it at home. Recommend not using BIPAP as of now to prevent pressure changes in the ear. Ciprofloxacin 500mg BID PO Mupirocin Meclizine PRN 2L O2 NC PT/OT F/u appointment outpatient next week SNU eval- wants to go to [facility] in [place], possibly tomorrow DNR Comment Review of Relevant I have reviewed the following items jeremie (where applicable) has been applied. Labs Laboratory Tests Test 02/13/19 05:10 02/14/19 08:05 White Blood Count 5.8 x10^3/uL (4.0-11.0) 5.1 x10^3/uL (4.0-11.0) Red Blood Count 3.97 x10^6/uL (3.50-5.40) 3.74 x10^6/uL (3.50-5.40) Hemoglobin 12.1 g/dL (12.0-15.5) 11.5 g/dL (12.0-15.5) Hematocrit 37.5 % (36.0-47.0) 35.3 % (36.0-47.0) Mean Corpuscular Volume 95 fL (79-100) 94 fL (79-100) Mean Corpuscular Hemoglobin 31 pg (25-35) 31 pg (25-35) Mean Corpuscular Hemoglobin Concent 32 g/dL (31-37) 33 g/dL (31-37) Red Cell Distribution Width 13.9 % (11.5-14.5) 13.7 % (11.5-14.5) Platelet Count 150 x10^3/uL (140-400) 147 x10^3/uL (140-400) Neutrophils (%) (Auto) 77 % (31-73) 72 % (31-73) Lymphocytes (%) (Auto) 9 % (24-48) 12 % (24-48) Monocytes (%) (Auto) 10 % (0-9) 12 % (0-9) Eosinophils (%) (Auto) 4 % (0-3) 4 % (0-3) Basophils (%) (Auto) 1 % (0-3) 1 % (0-3) Neutrophils # (Auto) 4.4 x10^3uL (1.8-7.7) 3.7 x10^3uL (1.8-7.7) Lymphocytes # (Auto) 0.5 x10^3/uL (1.0-4.8) 0.6 x10^3/uL (1.0-4.8) Monocytes # (Auto) 0.6 x10^3/uL (0.0-1.1) 0.6 x10^3/uL (0.0-1.1) Eosinophils # (Auto) 0.2 x10^3/uL (0.0-0.7) 0.2 x10^3/uL (0.0-0.7) Basophils # (Auto) 0.0 x10^3/uL (0.0-0.2) 0.0 x10^3/uL (0.0-0.2) Sodium Level 139 mmol/L (136-145) 140 mmol/L (136-145) Potassium Level 4.1 mmol/L (3.5-5.1) 4.3 mmol/L (3.5-5.1) Chloride Level 101 mmol/L (98-107) 100 mmol/L (98-107) Carbon Dioxide Level 34 mmol/L (21-32) 35 mmol/L (21-32) Anion Gap 4 (6-14) 5 (6-14) Blood Urea Nitrogen 16 mg/dL (7-20) 11 mg/dL (7-20) Creatinine 1.3 mg/dL (0.6-1.0) 1.3 mg/dL (0.6-1.0) Estimated GFR (Cockcroft-Gault) 39.1 39.1 Glucose Level 115 mg/dL (70-99) 100 mg/dL (70-99) Calcium Level 8.7 mg/dL (8.5-10.1) 8.7 mg/dL (8.5-10.1) Laboratory Tests Test 02/14/19 08:05 White Blood Count 5.1 x10^3/uL (4.0-11.0) Red Blood Count 3.74 x10^6/uL (3.50-5.40) Hemoglobin 11.5 g/dL (12.0-15.5) Hematocrit 35.3 % (36.0-47.0) Mean Corpuscular Volume 94 fL (79-100) Mean Corpuscular Hemoglobin 31 pg (25-35) Mean Corpuscular Hemoglobin Concent 33 g/dL (31-37) Red Cell Distribution Width 13.7 % (11.5-14.5) Platelet Count 147 x10^3/uL (140-400) Neutrophils (%) (Auto) 72 % (31-73) Lymphocytes (%) (Auto) 12 % (24-48) Monocytes (%) (Auto) 12 % (0-9) Eosinophils (%) (Auto) 4 % (0-3) Basophils (%) (Auto) 1 % (0-3) Neutrophils # (Auto) 3.7 x10^3uL (1.8-7.7) Lymphocytes # (Auto) 0.6 x10^3/uL (1.0-4.8) Monocytes # (Auto) 0.6 x10^3/uL (0.0-1.1) Eosinophils # (Auto) 0.2 x10^3/uL (0.0-0.7) Basophils # (Auto) 0.0 x10^3/uL (0.0-0.2) Sodium Level 140 mmol/L (136-145) Potassium Level 4.3 mmol/L (3.5-5.1) Chloride Level 100 mmol/L (98-107) Carbon Dioxide Level 35 mmol/L (21-32) Anion Gap 5 (6-14) Blood Urea Nitrogen 11 mg/dL (7-20) Creatinine 1.3 mg/dL (0.6-1.0) Estimated GFR (Cockcroft-Gault) 39.1 Glucose Level 100 mg/dL (70-99) Calcium Level 8.7 mg/dL (8.5-10.1) Medications Current Medications Ondansetron HCl (Zofran) 4 mg PRN Q6HRS PRN IV NAUSEA/VOMITING; Start 02/11/19 at 07:00; Stop 02/12/19 at 06:59; Status DC Fentanyl Citrate (Fentanyl 2ml Vial) 25 mcg PRN Q5MIN PRN IV MILD PAIN Last administered on 02/11/19at 18:25; Start 02/11/19 at 07:00; Stop 02/12/19 at 06:59; Status DC Fentanyl Citrate (Fentanyl 2ml Vial) 50 mcg PRN Q5MIN PRN IV MODERATE TO SEVERE PAIN Last administered on 02/11/19at 21:12; Start 02/11/19 at 07:00; Stop 02/12/19 at 06:59; Status DC Morphine Sulfate (Morphine Sulfate) 1 mg PRN Q10MIN PRN IV SEVERE PAIN; Start 02/11/19 at 07:00; Stop 02/12/19 at 06:59; Status DC Ringer's Solution 1,000 ml @ 30 mls/hr Q24H IV Last administered on 02/11/19at 12:32; Start 02/11/19 at 07:00; Stop 02/11/19 at 18:59; Status DC Lidocaine HCl (Xylocaine-Mpf 1% 2ml Vial) 2 ml PRN 1X PRN ID PRIOR TO IV START; Start 02/11/19 at 07:00; Stop 02/12/19 at 06:59; Status DC Hydromorphone HCl (Dilaudid) 0.5 mg PRN Q10MIN PRN IV SEV PAIN, Second choice; Start 02/11/19 at 07:00; Stop 02/12/19 at 06:59; Status DC Prochlorperazine Edisylate (Compazine) 5 mg PACU PRN PRN IV NAUSEA, MRX1; Start 02/11/19 at 07:00; Stop 02/12/19 at 06:59; Status DC Cefazolin Sodium/ Dextrose 50 ml @ 100 mls/hr 1X PREOP PRN IV PRIOR TO PROCEDURE Last administered on 02/11/19at 14:12; Start 02/11/19 at 06:00; Stop 02/11/19 at 18:00; Status DC Gelatin (Gelfoam Size 100) 1 each STK-MED ONCE .ROUTE Last administered on 02/11/19at 15:30; Start 02/11/19 at 12:07; Stop 02/11/19 at 13:07; Status DC Mupirocin (Bactroban) 22 edda STK-MED ONCE .ROUTE Last administered on 02/11/19at 16:47; Start 02/11/19 at 12:07; Stop 02/11/19 at 13:07; Status DC Epinephrine HCl (EPINEPHrine SYRINGE) 1 mg STK-MED ONCE .ROUTE Last adm inistered on 02/11/19at 15:30; Start 02/11/19 at 12:07; Stop 02/11/19 at 13:07; Status DC Lidocaine/ Epinephrine (LIDOCAINE 1%-EPI 1:100,000 Multi-Dose) 20 ml STK-MED ONCE .ROUTE Last administered on 02/11/19at 14:24; Start 02/11/19 at 12:07; Stop 02/11/19 at 13:07; Status DC Glycopyrrolate (Robinul) 1 mg STK-MED ONCE .ROUTE ; Start 02/11/19 at 13:40; Stop 02/11/19 at 14:10; Status DC Rocuronium [place] (Zemuron) 50 mg STK-MED ONCE .ROUTE ; Start 02/11/19 at 13:41; Stop 02/11/19 at 14:10; Status DC Fentanyl Citrate (Fentanyl 2ml Vial) 100 mcg STK-MED ONCE .ROUTE ; Start 02/11/19 at 13:42; Stop 02/11/19 at 14:10; Status DC Neostigmine Methylsulfate (Neostigmine Methylsulfate) 5 mg STK-MED ONCE .ROUTE ; Start 02/11/19 at 13:42; Stop 02/11/19 at 14:10; Status DC Ephedrine Sulfate (ePHEDrine PF IN SALINE SYRINGE) 50 mg STK-MED ONCE IV ; Start 02/11/19 at 14:35; Stop 02/11/19 at 14:36; Status DC Oxymetazoline HCl (Afrin) 120 spray STK-MED ONCE NS ; Start 02/11/19 at 13:43; Stop 02/11/19 at 14:43; Status DC Fentanyl Citrate (Fentanyl 2ml Vial) 100 mcg STK-MED ONCE .ROUTE ; Start 02/11/19 at 14:43; Stop 02/11/19 at 14:44; Status DC Hydralazine HCl (Apresoline Inj) 20 mg STK-MED ONCE .ROUTE ; Start 02/11/19 at 15:19; Stop 02/11/19 at 15:20; Status DC Fentanyl Citrate (Fentanyl 2ml Vial) 100 mcg STK-MED ONCE .ROUTE ; Start 02/11/19 at 15:20; Stop 02/11/19 at 15:21; Status DC Ciprofloxacin (Ciloxan Ophth) 1 drop 1X ONCE AU Last administered on 02/11/19at 15:45; Start 02/11/19 at 15:45; Stop 02/11/19 at 15:46; Status DC Fentanyl Citrate (Fentanyl 2ml Vial) 100 mcg STK-MED ONCE .ROUTE ; Start 02/11/19 at 19:32; Stop 02/11/19 at 19:33; Status DC Amoxicillin/ Clavulanate Potassium (Augmentin 875/ 125mg) 1 tab BID PO Last administered on 02/12/19at 21:16; Start 02/12/19 at 09:00; Stop 02/13/19 at 15:57; Status DC Acetaminophen (Tylenol) 1,000 mg PRN Q6HRS PRN PO MILD pain; Start 02/11/19 at 20:15 Ibuprofen (Motrin) 400 mg PRN Q6HRS PRN PO INFLAMMATION; Start 02/11/19 at 20:15 Ketorolac Tromethamine (Toradol 30mg Vial) 30 mg PRN Q6HRS PRN IV PAIN; Start 02/11/19 at 20:15; Stop 02/16/19 at 20:14 Oxycodone/ Acetaminophen (Percocet 5/325) 1 tab PRN Q6HRS PRN PO MODERATE-SEVER PAIN Last administered on 02/14/19at 06:01; Start 02/11/19 at 20:15 Morphine Sulfate (Morphine Sulfate) 1 mg PRN Q2HR PRN IV PAIN; Start 02/11/19 at 20:45 Folic Acid (Folic Acid) 1 mg DAILY PO Last administered on 02/14/19 10:18; Start 02/12/19 at 09:00 Lisinopril (Prinivil) 40 mg DAILY PO Last administered on 02/14/19 10:17; Start 02/12/19 at 09:00 Mupirocin (Bactroban) 1 edda TID TP Last administered on 02/14/19 09:00; Start 02/11/19 at 21:00 Albuterol Sulfate (Ventolin Neb Soln) 2.5 mg PRN Q4HRS PRN NEB SHORTNESS OF BREATH; Start 02/11/19 at 21:15 Azelastine HCl (Astelin) 1 spray DAILY NS Last administered on 02/14/19 10:20; Start 02/12/19 at 09:00 Fluticasone Propionate (Flonase) 2 spray DAILY NS Last administered on 02/14/19 10:21; Start 02/12/19 at 09:00 Levothyroxine Sodium (Synthroid) 50 mcg DAILY06 PO Last administered on 02/14 06:01; Start 02/12/19 at 06:00 Montelukast Sodium (Singulair) 10 mg QHS PO Last administered on 02/13/19at 22:02; Start 02/12/19 at 21:00 Cefazolin Sodium/ Dextrose (Ancef 2gm Premix) 2 gm STK-MED ONCE IV ; Start 02/11/19 at 12:00; Stop 02/12/19 at 13:03; Status DC Meclizine HCl (Antivert) 12.5 mg PRN Q6HRS PRN PO DIZZINESS Last administered on 02/14/19at 00:01; Start 02/12/19 at 14:00 Ciprofloxacin (Cipro) 500 mg BID PO Last administered on 02/14/19at 10:19; Start 02/12/19 at 14:30 Lactobacillus Rhamnosus (Culturelle) 1 cap BID PO Last administered on 02/14/19at 10:17; Start 02/12/19 at 21:00 Throat Lozenges (Cepacol Sore Throat Lozenge) 1 joe PRN Q2HRS PRN PO SORE THROAT; Start 02/13/19 at 16:00 Mupirocin (Bactroban) 1 edda TID TP Last administered on 02/14/19at 10:23; Start 02/13/19 at 16:30 Active Scripts Active Reported [floxin] 0.3% Btl 4-5 Drop LEFT EAR BID Zofran (Ondansetron Hcl) 4 Mg Tablet 1 Tab SL Q6HRS PRN Percocet 5-325 Mg Tablet (Oxycodone/Acetaminophen) 1 Each Tablet 1 Tab PO PRN Q6HRS PRN Augmentin 875-125 Tablet (Amoxicillin/Potassium Clav) 1 Each Tablet 1 Tab PO BID PRN Mupirocin Ointment (Mupirocin) 22 Gm Oint...g. 1 Edda TP TID Montelukast Sodium Tablet (Montelukast Sodium) 10 Mg Tablet 1 Tab PO DAILY Lisinopril 40 Mg Tablet 1 Tab PO DAILY Levothyroxine Sodium 50 Mcg Tablet 1 Tab PO DAILY Ventolin Hfa Inhaler (Albuterol Sulfate) 18 Gm Hfa.aer.ad 2 Puff INH Q4HRS PRN Folic Acid 1 Mg Tablet 1 Tab PO DAILY Flonase Allergy Relief (Fluticasone Propionate) 9.9 Ml [place].susp 2 Sprays NS DAILY Dymista Nasal [place] (Azelastine/Fluticasone) 23 Gm [place].pump 1 [place] NS DAILY Albuterol Sulfate Neb Soln (Albuterol Sulfate) 0.63 Mg/3 Ml Vial.neb 1 Vial NEB TID Vitals/I & O Vital Sign - Last 24 Hours 02/13/19 02/13/19 02/13/19 02/13/19 15:00 17:10 19:00 19:45 Temp 98.2 98.4 98.2 98.4 Pulse 60 68 Resp 18 18 B/P (MAP) 145/55 (85) 139/53 (81) Pulse Ox 97 98 O2 Delivery Nasal Cannula Room Air Nasal Cannula Room Air O2 Flow Rate 2.0 2.0 02/13/19 02/13/19 02/14/19 02/14/19 23:00 23:55 02:37 06:01 Temp 98.1 97.7 98.1 97.7 Pulse 59 64 Resp 18 16 B/P (MAP) 141/58 (85) 158/55 (89) Pulse Ox 97 95 O2 Delivery Nasal Cannula Room Air Nasal Cannula Room Air O2 Flow Rate 2.0 2.0 02/14/19 02/14/19 02/14/19 02/14/19 07:00 10:17 10:20 11:00 Temp 98.1 98.0 98.1 98.0 Pulse 68 68 60 Resp 18 16 B/P (MAP) 165/55 (91) 165/55 166/74 (104) Pulse Ox 97 97 97 O2 Delivery Room Air Nasal Cannula Nasal Cannula O2 Flow Rate 2.0 2.0 Intake and Output 02/13/19 02/13/19 02/14/19 14:59 22:59 06:59 Intake Total 360 ml 240 ml Balance 360 ml 240 ml JESSICA FREEMAN III DO Feb 14, 2019 12:44
[2019-02-14 15:00] VITALS: BP 187/65
[2019-02-14 19:00] VITALS: BP 165/54
[2019-02-14] MEDS: IPRATRPIUM/ALBUTEROL 0.5/2.5MG 3 ML NEBU. NEB SCH (20:26)
[2019-02-14] MEDS: MONTELUKAST SODIUM 10 MG TABLET. PO SCH (20:44)
[2019-02-14 23:00] VITALS: BP 153/42
[2019-02-15 03:00] VITALS: BP 167/80
[2019-02-15] MEDS: LEVOTHYROXINE 50 MCG TABLET PO SCH ×2 (06:00→08:59)
[2019-02-15 07:00] VITALS: BP 175/61
[2019-02-15 07:12] LABS: BASO % 1 % (0-3); EOS # 0.2 x10^3/uL (0.0-0.7); EOS % 4 % (0-3); HEMATOCRIT 33.9 % (36.0-47.0); HEMOGLOBIN 10.9 g/dL (12.0-15.5); LYMPH # 0.7 x10^3/uL (1.0-4.8); LYMPH % 16 % (24-48); MEAN CORPUSCULAR HEMOGLOBIN 30 pg (25-35); MEAN CORPUSCULAR HGB CONC 32 g/dL (31-37); MEAN CORPUSCULAR VOLUME 94 fL (79-100); MONO # 0.7 x10^3/uL (0.0-1.1); MONO % 16 % (0-9); NEUT # 2.6 x10^3uL (1.8-7.7); NEUT % 63 % (31-73); PLATELET COUNT 137 x10^3/uL (140-400); RED CELL DISTRIBUTION WIDTH 13.8 % (11.5-14.5); WHITE BLOOD COUNT 4.2 x10^3/uL (4.0-11.0)
[2019-02-15 07:22] LABS: CALCIUM 8.5 mg/dL (8.5-10.1); CREATININE 1.1 mg/dL (0.6-1.0); GFR 47.4; POTASSIUM 4.1 mmol/L (3.5-5.1)
[2019-02-15] MEDS: IPRATRPIUM/ALBUTEROL 0.5/2.5MG 3 ML NEBU. NEB SCH ×4 (07:49→20:14)
[2019-02-15] MEDS: MUPIROCIN 2 % NASAL OINTMENT 22GM TUBE. TP SCH ×3 (08:56→19:46)
[2019-02-15] MEDS: AZELASTINE NASAL SPRAY 30ML BOTTLE. NS SCH (08:56)
[2019-02-15] MEDS: FLUTICASONE 50MCG/NASAL SPRAY 16GM BOTTLE. NS SCH (08:56)
[2019-02-15] MEDS: LACTOBACILLUS RHAMNOSUS GG 1 CAPSULE. PO SCH ×2 (08:57→19:45)
[2019-02-15] MEDS: CIPROFLOXACIN HCL 250 MG TABLET. PO SCH ×2 (08:58→19:46)
[2019-02-15] MEDS: oxyCODONE/APAP 5/325 1 TAB TABLET PO PRN ×2 (08:58→19:45)
[2019-02-15] MEDS: FOLIC ACID 1 MG TABLET. PO SCH (08:59)
[2019-02-15] MEDS: LISINOPRIL 20 MG TABLET PO SCH (08:59)
[2019-02-15] MEDS: MUPIROCIN 2 % TOPICAL CREAM 30GM TUBE. TP SCH ×3 (09:00→19:46)
--- NOTE | 2019-02-15 10:35 | PDOC ---
PROGRESS NOTES Chief Complaint Chief Complaint Tympanomastoidectomy History of Present Illness History of Present Illness Patient was seen sitting in a chair today, POD3. she is still not improved with unsteady gait The patient is not well enough to go home. Gin would like her to go to a [facility]. The patient is having some confusion today. Vitals Vitals Vital Signs Date Time Temp Pulse Resp B/P (MAP) Pulse Ox O2 Delivery O2 Flow Rate FiO2 02/15/19 10:09 16 Nasal Cannula 2.0 02/15/19 08:59 75 167/80 02/15/19 07:52 98 02/15/19 07:00 98.4 98.4 Physical Exam General: Alert, Cooperative, No acute distress Heart: Regular rate, Normal S1, Normal S2, No murmurs Lungs: Clear (No wheezes, rales, or rhonchi) Abdomen: Normal bowel sounds, Soft, No tenderness, No masses Extremities: No edema, Normal pulses, No tenderness/swelling Skin: No rashes, No breakdown, No significant lesion Labs LABS Laboratory Tests Test 02/15/19 06:10 White Blood Count 4.2 x10^3/uL (4.0-11.0) Red Blood Count 3.60 x10^6/uL (3.50-5.40) Hemoglobin 10.9 g/dL (12.0-15.5) Hematocrit 33.9 % (36.0-47.0) Mean Corpuscular Volume 94 fL (79-100) Mean Corpuscular Hemoglobin 30 pg (25-35) Mean Corpuscular Hemoglobin Concent 32 g/dL (31-37) Red Cell Distribution Width 13.8 % (11.5-14.5) Platelet Count 137 x10^3/uL (140-400) Neutrophils (%) (Auto) 63 % (31-73) Lymphocytes (%) (Auto) 16 % (24-48) Monocytes (%) (Auto) 16 % (0-9) Eosinophils (%) (Auto) 4 % (0-3) Basophils (%) (Auto) 1 % (0-3) Neutrophils # (Auto) 2.6 x10^3uL (1.8-7.7) Lymphocytes # (Auto) 0.7 x10^3/uL (1.0-4.8) Monocytes # (Auto) 0.7 x10^3/uL (0.0-1.1) Eosinophils # (Auto) 0.2 x10^3/uL (0.0-0.7) Basophils # (Auto) 0.0 x10^3/uL (0.0-0.2) Sodium Level 139 mmol/L (136-145) Potassium Level 4.1 mmol/L (3.5-5.1) Chloride Level 100 mmol/L (98-107) Carbon Dioxide Level 34 mmol/L (21-32) Anion Gap 5 (6-14) Blood Urea Nitrogen 13 mg/dL (7-20) Creatinine 1.1 mg/dL (0.6-1.0) Estimated GFR (Cockcroft-Gault) 47.4 Glucose Level 104 mg/dL (70-99) Calcium Level 8.5 mg/dL (8.5-10.1) Comment Review of Relevant I have reviewed the following items jeremie (where applicable) has been applied. Labs Laboratory Tests Test 02/14/19 08:05 02/15/19 06:10 White Blood Count 5.1 x10^3/uL (4.0-11.0) 4.2 x10^3/uL (4.0-11.0) Red Blood Count 3.74 x10^6/uL (3.50-5.40) 3.60 x10^6/uL (3.50-5.40) Hemoglobin 11.5 g/dL (12.0-15.5) 10.9 g/dL (12.0-15.5) Hematocrit 35.3 % (36.0-47.0) 33.9 % (36.0-47.0) Mean Corpuscular Volume 94 fL (79-100) 94 fL (79-100) Mean Corpuscular Hemoglobin 31 pg (25-35) 30 pg (25-35) Mean Corpuscular Hemoglobin Concent 33 g/dL (31-37) 32 g/dL (31-37) Red Cell Distribution Width 13.7 % (11.5-14.5) 13.8 % (11.5-14.5) Platelet Count 147 x10^3/uL (140-400) 137 x10^3/uL (140-400) Neutrophils (%) (Auto) 72 % (31-73) 63 % (31-73) Lymphocytes (%) (Auto) 12 % (24-48) 16 % (24-48) Monocytes (%) (Auto) 12 % (0-9) 16 % (0-9) Eosinophils (%) (Auto) 4 % (0-3) 4 % (0-3) Basophils (%) (Auto) 1 % (0-3) 1 % (0-3) Neutrophils # (Auto) 3.7 x10^3uL (1.8-7.7) 2.6 x10^3uL (1.8-7.7) Lymphocytes # (Auto) 0.6 x10^3/uL (1.0-4.8) 0.7 x10^3/uL (1.0-4.8) Monocytes # (Auto) 0.6 x10^3/uL (0.0-1.1) 0.7 x10^3/uL (0.0-1.1) Eosinophils # (Auto) 0.2 x10^3/uL (0.0-0.7) 0.2 x10^3/uL (0.0-0.7) Basophils # (Auto) 0.0 x10^3/uL (0.0-0.2) 0.0 x10^3/uL (0.0-0.2) Sodium Level 140 mmol/L (136-145) 139 mmol/L (136-145) Potassium Level 4.3 mmol/L (3.5-5.1) 4.1 mmol/L (3.5-5.1) Chloride Level 100 mmol/L (98-107) 100 mmol/L (98-107) Carbon Dioxide Level 35 mmol/L (21-32) 34 mmol/L (21-32) Anion Gap 5 (6-14) 5 (6-14) Blood Urea Nitrogen 11 mg/dL (7-20) 13 mg/dL (7-20) Creatinine 1.3 mg/dL (0.6-1.0) 1.1 mg/dL (0.6-1.0) Estimated GFR (Cockcroft-Gault) 39.1 47.4 Glucose Level 100 mg/dL (70-99) 104 mg/dL (70-99) Calcium Level 8.7 mg/dL (8.5-10.1) 8.5 mg/dL (8.5-10.1) Laboratory Tests Test 02/15/19 06:10 White Blood Count 4.2 x10^3/uL (4.0-11.0) Red Blood Count 3.60 x10^6/uL (3.50-5.40) Hemoglobin 10.9 g/dL (12.0-15.5) Hematocrit 33.9 % (36.0-47.0) Mean Corpuscular Volume 94 fL (79-100) Mean Corpuscular Hemoglobin 30 pg (25-35) Mean Corpuscular Hemoglobin Concent 32 g/dL (31-37) Red Cell Distribution Width 13.8 % (11.5-14.5) Platelet Count 137 x10^3/uL (140-400) Neutrophils (%) (Auto) 63 % (31-73) Lymphocytes (%) (Auto) 16 % (24-48) Monocytes (%) (Auto) 16 % (0-9) Eosinophils (%) (Auto) 4 % (0-3) Basophils (%) (Auto) 1 % (0-3) Neutrophils # (Auto) 2.6 x10^3uL (1.8-7.7) Lymphocytes # (Auto) 0.7 x10^3/uL (1.0-4.8) Monocytes # (Auto) 0.7 x10^3/uL (0.0-1.1) Eosinophils # (Auto) 0.2 x10^3/uL (0.0-0.7) Basophils # (Auto) 0.0 x10^3/uL (0.0-0.2) Sodium Level 139 mmol/L (136-145) Potassium Level 4.1 mmol/L (3.5-5.1) Chloride Level 100 mmol/L (98-107) Carbon Dioxide Level 34 mmol/L (21-32) Anion Gap 5 (6-14) Blood Urea Nitrogen 13 mg/dL (7-20) Creatinine 1.1 mg/dL (0.6-1.0) Estimated GFR (Cockcroft-Gault) 47.4 Glucose Level 104 mg/dL (70-99) Calcium Level 8.5 mg/dL (8.5-10.1) Medications Current Medications Ondansetron HCl (Zofran) 4 mg PRN Q6HRS PRN IV NAUSEA/VOMITING; Start 02/11/19 at 07:00; Stop 02/12/19 at 06:59; Status DC Fentanyl Citrate (Fentanyl 2ml Vial) 25 mcg PRN Q5MIN PRN IV MILD PAIN Last administered on 02/11/19at 18:25; Start 02/11/19 at 07:00; Stop 02/12/19 at 06:59; Status DC Fentanyl Citrate (Fentanyl 2ml Vial) 50 mcg PRN Q5MIN PRN IV MODERATE TO SEVERE PAIN Last administered on 02/11/19at 21:12; Start 02/11/19 at 07:00; Stop 02/12/19 at 06:59; Status DC Morphine Sulfate (Morphine Sulfate) 1 mg PRN Q10MIN PRN IV SEVERE PAIN; Start 02/11/19 at 07:00; Stop 02/12/19 at 06:59; Status DC Ringer's Solution 1,000 ml @ 30 mls/hr Q24H IV Last administered on 02/11/19at 12:32; Start 02/11/19 at 07:00; Stop 02/11/19 at 18:59; Status DC Lidocaine HCl (Xylocaine-Mpf 1% 2ml Vial) 2 ml PRN 1X PRN ID PRIOR TO IV START; Start 02/11/19 at 07:00; Stop 02/12/19 at 06:59; Status DC Hydromorphone HCl (Dilaudid) 0.5 mg PRN Q10MIN PRN IV SEV PAIN, Second choice; Start 02/11/19 at 07:00; Stop 02/12/19 at 06:59; Status DC Prochlorperazine Edisylate (Compazine) 5 mg PACU PRN PRN IV NAUSEA, MRX1; Start 02/11/19 at 07:00; Stop 02/12/19 at 06:59; Status DC Cefazolin Sodium/ Dextrose 50 ml @ 100 mls/hr 1X PREOP PRN IV PRIOR TO PROCEDURE Last administered on 02/11/19at 14:12; Start 02/11/19 at 06:00; Stop 02/11/19 at 18:00; Status DC Gelatin (Gelfoam Size 100) 1 each STK-MED ONCE .ROUTE Last administered on 02/11/19at 15:30; Start 02/11/19 at 12:07; Stop 02/11/19 at 13:07; Status DC Mupirocin (Bactroban) 22 edda STK-MED ONCE .ROUTE Last administered on 02/11/19at 16:47; Start 02/11/19 at 12:07; Stop 02/11/19 at 13:07; Status DC Epinephrine HCl (EPINEPHrine SYRINGE) 1 mg STK-MED ONCE .ROUTE Last administered on 02/11/19at 15:30; Start 02/11/19 at 12:07; Stop 02/11/19 at 13:07; Status DC Lidocaine/ Epinephrine (LIDOCAINE 1%-EPI 1:100,000 Multi-Dose) 20 ml STK-MED ONCE .ROUTE Last administered on 02/11/19at 14:24; Start 02/11/19 at 12:07; Stop 02/11/19 at 13:07; Status DC Glycopyrrolate (Robinul) 1 mg STK-MED ONCE .ROUTE ; Start 02/11/19 at 13:40; Stop 02/11/19 at 14:10; Status DC Rocuronium Gravette (Zemuron) 50 mg STK-MED ONCE .ROUTE ; Start 02/11/19 at 13:41; Stop 02/11/19 at 14:10; Status DC Fentanyl Citrate (Fentanyl 2ml Vial) 100 mcg STK-MED ONCE .ROUTE ; Start 02/11/19 at 13:42; Stop 02/11/19 at 14:10; Status DC Neostigmine Methylsulfate (Neostigmine Methylsulfate) 5 mg STK-MED ONCE .ROUTE ; Start 02/11/19 at 13:42; Stop 02/11/19 at 14:10; Status DC Ephedrine Sulfate (ePHEDrine PF IN SALINE SYRINGE) 50 mg STK-MED ONCE IV ; Start 02/11/19 at 14:35; Stop 02/11/19 at 14:36; Status DC Oxymetazoline HCl (Afrin) 120 spray STK-MED ONCE NS ; Start 02/11/19 at 13:43; Stop 02/11/19 at 14:43; Status DC Fentanyl Citrate (Fentanyl 2ml Vial) 100 mcg STK-MED ONCE .ROUTE ; Start 02/11/19 at 14:43; Stop 02/11/19 at 14:44; Status DC Hydralazine HCl (Apresoline Inj) 20 mg STK-MED ONCE .ROUTE ; Start 02/11/19 at 15:19; Stop 02/11/19 at 15:20; Status DC Fentanyl Citrate (Fentanyl 2ml Vial) 100 mcg STK-MED ONCE .ROUTE ; Start 02/11/19 at 15:20; Stop 02/11/19 at 15:21; Status DC Ciprofloxacin (Ciloxan Ophth) 1 drop 1X ONCE AU Last administered on 02/11/19at 15:45; Start 02/11/19 at 15:45; Stop 02/11/19 at 15:46; Status DC Fentanyl Citrate (Fentanyl 2ml Vial) 100 mcg STK-MED ONCE .ROUTE ; Start 02/11/19 at 19:32; Stop 02/11/19 at 19:33; Status DC Amoxicillin/ Clavulanate Potassium (Augmentin 875/ 125mg) 1 tab BID PO Last administered on 02/12/19at 21:16; Start 02/12/19 at 09:00; Stop 02/13/19 at 15:57; Status DC Acetaminophen (Tylenol) 1,000 mg PRN Q6HRS PRN PO MILD pain; Start 02/11/19 at 20:15 Ibuprofen (Motrin) 400 mg PRN Q6HRS PRN PO INFLAMMATION; Start 02/11/19 at 20:15 Ketorolac Tromethamine (Toradol 30mg Vial) 30 mg PRN Q6HRS PRN IV PAIN; Start 02/11/19 at 20:15; Stop 02/16/19 at 20:14 Oxycodone/ Acetaminophen (Percocet 5/325) 1 tab PRN Q6HRS PRN PO MODERATE- SEVERE PAIN Last administered on 02/15/19at 08:58; Start 02/11/19 at 20:15 Morphine Sulfate (Morphine Sulfate) 1 mg PRN Q2HR PRN IV PAIN; Start 02/11/19 at 20:45 Folic Acid (Folic Acid) 1 mg DAILY PO Last administered on 02/15/19at 08:59; St art 02/12/19 at 09:00 Lisinopril (Prinivil) 40 mg DAILY PO Last administered on 02/15/19at 08:59; Start 02/12/19 at 09:00 Mupirocin (Bactroban) 1 edda TID TP Last administered on 02/15/19 08:56; Start 02/11/19 at 21:00 Albuterol Sulfate (Ventolin Neb Soln) 2.5 mg PRN Q4HRS PRN NEB SHORTNESS OF BREATH Last administered on 02/14/19 16:15; Start 02/11/19 at 21:15 Azelastine HCl (Astelin) 1 spray DAILY NS Last administered on 02/15/19 08:56; Start 02/12/19 at 09:00 Fluticasone Propionate (Flonase) 2 spray DAILY NS Last administered on 02/15/19 08:56; Start 02/12/19 at 09:00 Levothyroxine Sodium (Synthroid) 50 mcg DAILY06 PO Last administered on 02/15/19 08:59; Start 02/12/19 at 06:00 Montelukast Sodium (Singulair) 10 mg QHS PO Last administered on 02/14/19 20:44; Start 02/12/19 at 21:00 Cefazolin Sodium/ Dextrose (Ancef 2gm Premix) 2 gm STK-MED ONCE IV ; Start 02/11/19 at 12:00; Stop 02/12/19 at 13:03; Status DC Meclizine HCl (Antivert) 12.5 mg PRN Q6HRS PRN PO DIZZINESS Last administered on 02/14/19 20:43; Start 02/12/19 at 14:00 Ciprofloxacin (Cipro) 500 mg BID PO Last administered on 02/15/19 08:58; Start 02/12/19 at 14:30 Lactobacillus Rhamnosus (Culturelle) 1 cap BID PO Last administered on 02/15/19 08:57; Start 02/12/19 at 21:00 Throat Lozenges (Cepacol Sore Throat Lozenge) 1 joe PRN Q2HRS PRN PO SORE THROAT; Start 02/13/19 at 16:00 Mupirocin (Bactroban) 1 edda TID TP Last administered on 02/14/19 20:46; Start 02/13/19 at 16:30 Albuterol/ Ipratropium (Duoneb) 3 ml RTQID NEB Last administered on 4/29/19at 07:49; Start 02/14/19 at 20:00 Active Scripts Active Reported [floxin] 0.3% Btl 4-5 Drop LEFT EAR BID Zofran (Ondansetron Hcl) 4 Mg Tablet 1 Tab SL Q6HRS PRN Percocet 5-325 Mg Tablet (Oxycodone/Acetaminophen) 1 Each Tablet 1 Tab PO PRN Q6HRS PRN Augmentin 875-125 Tablet (Amoxicillin/Potassium Clav) 1 Each Tablet 1 Tab PO BID PRN Mupirocin Ointment (Mupirocin) 22 Gm Oint...g. 1 Edda TP TID Montelukast Sodium Tablet (Montelukast Sodium) 10 Mg Tablet 1 Tab PO DAILY Lisinopril 40 Mg Tablet 1 Tab PO DAILY Levothyroxine Sodium 50 Mcg Tablet 1 Tab PO DAILY Ventolin Hfa Inhaler (Albuterol Sulfate) 18 Gm Hfa.aer.ad 2 Puff INH Q4HRS PRN Folic Acid 1 Mg Tablet 1 Tab PO DAILY Flonase Allergy Relief (Fluticasone Propionate) 9.9 Ml [place].susp 2 Sprays NS DAILY Dymista Nasal [place] (Azelastine/Fluticasone) 23 Gm [place].pump 1 [place] NS DAILY Albuterol Sulfate Neb Soln (Albuterol Sulfate) 0.63 Mg/3 Ml Vial.neb 1 Vial NEB TID Vitals/I & O Vital Sign - Last 24 Hours 02/14/19 02/14/19 02/14/19 02/14/19 11:00 15:00 16:15 19:00 Temp 98.0 98.5 97.9 98.0 98.5 97.9 Pulse 60 72 65 Resp 16 18 16 B/P (MAP) 166/74 (104) 187/65 (105) 165/54 (91) Pulse Ox 97 98 95 95 O2 Delivery Nasal Cannula Nasal Cannula Nasal Cannula Nasal Cannula O2 Flow Rate 2.0 2.0 2.0 2.0 02/14/19 02/14/19 02/14/19 02/14/19 19:45 20:27 20:43 23:00 Temp 98.6 98.6 Pulse 77 Resp 18 B/P (MAP) 153/42 (79) Pulse Ox 95 98 O2 Delivery Nasal Cannula Nasal Cannula Room Air Nasal Cannula O2 Flow Rate 2.0 2.0 2.0 02/15/19 02/15/19 02/15/19 02/15/19 03:00 07:00 07:52 08:58 Temp 98.3 98.4 98.3 98.4 Pulse 75 62 Resp 18 18 16 B/P (MAP) 167/80 (109) 175/61 (99) Pulse Ox 95 99 98 O2 Delivery Nasal Cannula Nasal Cannula Nasal Cannula Room Air O2 Flow Rate 2.0 2.0 2.0 02/15/19 02/15/19 08:59 10:09 Pulse 75 Resp 16 B/P (MAP) 167/80 O2 Delivery Nasal Cannula O2 Flow Rate 2.0 Intake and Output 02/14/19 02/14/19 02/15/19 14:59 22:59 06:59 Intake Total 480 ml Balance 480 ml JENI DURHAM MD Feb 15, 2019 10:35
[2019-02-15 11:00] VITALS: BP 149/48
[2019-02-15 15:00] VITALS: BP 145/55
--- NOTE | 2019-02-15 17:06 | PATHOLOGY ---
[facility] Accession Number: [id number] . 01 Material submitted: . ear - MASTOID CONTENTS . 01 Clinical history: . Perforated tympanic membrane . 02 Diagnosis: Fibrous tissue and bone, mastoid contents: - Scarring and chronic inflammation. (JPM/db; 02/15/2019) LBQ/02/15/2019 . 02 Electronically signed: . Jordan Lund MD, Pathologist NPI- [id number] . 01 Gross description: . The specimen is received in formalin, labeled "Isabel, Alexia, mastoid contents" and consists of a few small fragments of xie tissue measuring 0.5 x 0.3 x 0.1 cm which are entirely submitted in A1. (SDY; 02/12/2019) SYU/SYU . 02 Pathologist provided ICD-10: H70.90 . 02 CPT . 871966 Specimen Comment: A courtesy copy of this report has been sent to Specimen Comment: [phone], , . Specimen Comment: Report sent to ,DR SHEN / DR CANADA Performed at: 01 [facility] [address], [place] [id number] MD Bill Paz MD Phone: [phone] Performed at: 02 [facility] [address] [place], [place] [id number] MD Jordan Lund MD Phone: [phone]
[2019-02-15] MEDS: MONTELUKAST SODIUM 10 MG TABLET. PO SCH (19:45)
[2019-02-15 19:57] VITALS: BP 184/73
[2019-02-15 23:30] VITALS: BP 142/57
[2019-02-16 03:31] VITALS: BP 132/62
[2019-02-16 04:24] LABS: BASO % 1 % (0-3); EOS # 0.2 x10^3/uL (0.0-0.7); EOS % 4 % (0-3); HEMATOCRIT 33.2 % (36.0-47.0); LYMPH # 0.8 x10^3/uL (1.0-4.8); LYMPH % 17 % (24-48); MEAN CORPUSCULAR HEMOGLOBIN 31 pg (25-35); MEAN CORPUSCULAR HGB CONC 33 g/dL (31-37); MEAN CORPUSCULAR VOLUME 94 fL (79-100); MONO # 0.7 x10^3/uL (0.0-1.1); MONO % 16 % (0-9); NEUT # 2.7 x10^3uL (1.8-7.7); NEUT % 62 % (31-73); PLATELET COUNT 153 x10^3/uL (140-400); RED BLOOD COUNT 3.55 x10^6/uL (3.50-5.40); RED CELL DISTRIBUTION WIDTH 13.9 % (11.5-14.5); WHITE BLOOD COUNT 4.3 x10^3/uL (4.0-11.0)
[2019-02-16 05:18] LABS: CALCIUM 8.9 mg/dL (8.5-10.1); CREATININE 1.3 mg/dL (0.6-1.0); GFR 39.1; POTASSIUM 4.2 mmol/L (3.5-5.1)
[2019-02-16 07:00] VITALS: BP 165/56
[2019-02-16] MEDS: IPRATRPIUM/ALBUTEROL 0.5/2.5MG 3 ML NEBU. NEB SCH ×5 (07:42→20:14)
[2019-02-16] MEDS: FOLIC ACID 1 MG TABLET. PO SCH (09:20)
[2019-02-16] MEDS: CIPROFLOXACIN HCL 250 MG TABLET. PO SCH ×2 (09:20→21:00)
[2019-02-16] MEDS: LACTOBACILLUS RHAMNOSUS GG 1 CAPSULE. PO SCH ×2 (09:20→21:02)
[2019-02-16] MEDS: LISINOPRIL 20 MG TABLET PO SCH (09:21)
[2019-02-16] MEDS: AZELASTINE NASAL SPRAY 30ML BOTTLE. NS SCH (09:22)
[2019-02-16] MEDS: MUPIROCIN 2 % NASAL OINTMENT 22GM TUBE. TP SCH ×3 (09:22→21:03)
[2019-02-16] MEDS: FLUTICASONE 50MCG/NASAL SPRAY 16GM BOTTLE. NS SCH (09:22)
[2019-02-16] MEDS: MUPIROCIN 2 % TOPICAL CREAM 30GM TUBE. TP SCH ×3 (09:22→21:03)
[2019-02-16] MEDS: oxyCODONE/APAP 5/325 1 TAB TABLET PO PRN ×2 (09:25→21:02)
--- NOTE | 2019-02-16 10:22 | PDOC1 ---
History and Physical Date of Admission Date of Admission DATE: 02/16/19 TIME: 10:19 History of Present Illness History of Present Illness DATE OF SURGERY: 02/11/2019 PREOPERATIVE DIAGNOSES: Left tympanic membrane perforation, left chronic otitis media, left chronic mastoiditis, left-sided mixed hearing loss and bilateral eustachian tube dysfunction. POSTOPERATIVE DIAGNOSES: Left tympanic membrane perforation, left chronic otitis media, left chronic mastoiditis, left-sided mixed hearing loss and bilateral eustachian tube dysfunction. PROCEDURE PERFORMED: Left tympanomastoidectomy and bilateral eustachian tube dilation. SURGEON: Arcelia Pacheco MD ANESTHESIA: General endotracheal anesthesia. ANESTHESIOLOGIST: Dr. Martinez. ESTIMATED BLOOD LOSS: 25 mL. SPECIMENS OBTAINED: Left mastoid content was sent for permanent pathology. INDICATIONS FOR SURGERY: The patient is an 84-year-old female with a history of chronic eustachian tube dysfunction requiring multiple sets of pressure equalization tubes in the past. The patient's last set of tubes was approximately 6-7 years ago and resulted in chronic bilateral tympanic membrane perforations. For the past 4 months, the patient has had purulent discharge from the left tympanic membrane that has been refractory to antibiotic eardrops as well as oral antibiotics. After meeting maximum medical therapy and having continued infection, the decision was made the patient undergo the above procedure after risks, benefits, and alternatives of surgery were thoroughly discussed with the patient and informed consent was obtained. INTRAOPERATIVE FINDINGS: 1. A sclerotic mastoid with mucoid discharge within the mastoid cavity and middle ear. 2. A 25% perforation of the posterior inferior tympanic membrane. 3. The ossicular chain was intact and mobile. Past Medical History Past Medical History admit h/p 02/12 reason for admit : The patient is a pleasant 84-year-old female who had a tympanomastoidectomy yesterday by Dr. Arcelia Pacheco today. I saw and examined the patient. She is doing better and wants to go home. We plan to discharge if okay with her surgeon. PHYSICAL EXAMINATION: VITAL SIGNS: Temperature afebrile, pulse 90, respirations 18, blood pressure 144/90. GENERAL: She is alert, cooperative. HEART: Normal S1, S2. LUNGS: Clear. ABDOMEN: Soft. EXTREMITIES: No edema. SKIN: No rash. ENDOCRINE: No thyromegaly. LYMPHATICS: No cervical nodes. HEMATOPOIETIC: No bruising. PSYCHIATRIC: She is anxious. HEENT: She has clean dressing on the left ear. LABORATORY DATA: Not available. ASSESSMENT AND PLAN: Postop day #1, left tympanomastoidectomy. DISPOSITION: admit, too weak for d/c today Cardiovascular: HTN, Hyperlipidemia Musculoskeletal: Osteoarthritis Current Medications Current Medications Current Medications Ondansetron HCl (Zofran) 4 mg PRN Q6HRS PRN IV NAUSEA/VOMITING; Start 02/11/19 at 07:00; Stop 02/12/19 at 06:59; Status DC Fentanyl Citrate (Fentanyl 2ml Vial) 25 mcg PRN Q5MIN PRN IV MILD PAIN Last administered on 02/11/19at 18:25; Start 02/11/19 at 07:00; Stop 02/12/19 at 06:59; Status DC Fentanyl Citrate (Fentanyl 2ml Vial) 50 mcg PRN Q5MIN PRN IV MODERATE TO SEVERE PAIN Last administered on 02/11/19at 21:12; Start 02/11/19 at 07:00; Stop 02/12/19 at 06:59; Status DC Morphine Sulfate (Morphine Sulfate) 1 mg PRN Q10MIN PRN IV SEVERE PAIN; Start 02/11/19 at 07:00; Stop 02/12/19 at 06:59; Status DC Ringer's Solution 1,000 ml @ 30 mls/hr Q24H IV Last administered on 02/11/19at 12:32; Start 02/11/19 at 07:00; Stop 02/11/19 at 18:59; Status DC Lidocaine HCl (Xylocaine-Mpf 1% 2ml Vial) 2 ml PRN 1X PRN ID PRIOR TO IV START; Start 02/11/19 at 07:00; Stop 02/12/19 at 06:59; Status DC Hydromorphone HCl (Dilaudid) 0.5 mg PRN Q10MIN PRN IV SEV PAIN, Second choice; Start 02/11/19 at 07:00; Stop 02/12/19 at 06:59; Status DC Prochlorperazine Edisylate (Compazine) 5 mg PACU PRN PRN IV NAUSEA, MRX1; Start 02/11/19 at 07:00; Stop 02/12/19 at 06:59; Status DC Cefazolin Sodium/ Dextrose 50 ml @ 100 mls/hr 1X PREOP PRN IV PRIOR TO PROCEDURE Last administered on 02/11/19at 14:12; Start 02/11/19 at 06:00; Stop 02/11/19 at 18:00; Status DC Gelatin (Gelfoam Size 100) 1 each STK-MED ONCE .ROUTE Last administered on 02/11/19at 15:30; Start 02/11/19 at 12:07; Stop 02/11/19 at 13:07; Status DC Mupirocin (Bactroban) 22 edda STK-MED ONCE .ROUTE Last administered on 02/11/19at 16:47; Start 02/11/19 at 12:07; Stop 02/11/19 at 13:07; Status DC Epinephrine HCl (EPINEPHrine SYRINGE) 1 mg STK-MED ONCE .ROUTE Last administered on 02/11/19at 15:30; Start 02/11/19 at 12:07; Stop 02/11/19 at 13:07; Status DC Lidocaine/ Epinephrine (LIDOCAINE 1%-EPI 1:100,000 Multi-Dose) 20 ml STK-MED ONCE .ROUTE Last administered on 02/11/19at 14:24; Start 02/11/19 at 12:07; Stop 02/11/19 at 13:07; Status DC Glycopyrrolate (Robinul) 1 mg STK-MED ONCE .ROUTE ; Start 02/11/19 at 13:40; Stop 02/11/19 at 14:10; Status DC Rocuronium Homer (Zemuron) 50 mg STK-MED ONCE .ROUTE ; Start 02/11/19 at 13:41; Stop 02/11/19 at 14:10; Status DC Fentanyl Citrate (Fentanyl 2ml Vial) 100 mcg STK-MED ONCE .ROUTE ; Start 02/11/19 at 13:42; Stop 02/11/19 at 14:10; Status DC Neostigmine Methylsulfate (Neostigmine Methylsulfate) 5 mg STK-MED ONCE .ROUTE ; Start 02/11/19 at 13:42; Stop 02/11/19 at 14:10; Status DC Ephedrine Sulfate (ePHEDrine PF IN SALINE SYRINGE) 50 mg STK-MED ONCE IV ; Start 02/11/19 at 14:35; Stop 02/11/19 at 14:36; Status DC Oxymetazoline HCl (Afrin) 120 spray STK-MED ONCE NS ; Start 02/11/19 at 13:43; Stop 02/11/19 at 14:43; Status DC Fentanyl Citrate (Fentanyl 2ml Vial) 100 mcg STK-MED ONCE .ROUTE ; Start 02/11/19 at 14:43; Stop 02/11/19 at 14:44; Status DC Hydralazine HCl (Apresoline Inj) 20 mg STK-MED ONCE .ROUTE ; Start 02/11/19 at 15:19; Stop 02/11/19 at 15:20; Status DC Fentanyl Citrate (Fentanyl 2ml Vial) 100 mcg STK-MED ONCE .ROUTE ; Start 02/11/19 at 15:20; Stop 02/11/19 at 15:21; Status DC Ciprofloxacin (Ciloxan Ophth) 1 drop 1X ONCE AU Last administered on 02/11/19at 15:45; Start 02/11/19 at 15:45; Stop 02/11/19 at 15:46; Status DC Fentanyl Citrate (Fentanyl 2ml Vial) 100 mcg STK-MED ONCE .ROUTE ; Start 02/11/19 at 19:32; Stop 02/11/19 at 19:33; Status DC Amoxicillin/ Clavulanate Potassium (Augmentin 875/ 125mg) 1 tab BID PO Last administered on 02/12/19at 21:16; Start 02/12/19 at 09:00; Stop 02/13/19 at 15:57; Status DC Acetaminophen (Tylenol) 1,000 mg PRN Q6HRS PRN PO MILD pain; Start 02/11/19 at 20:15 Ibuprofen (Motrin) 400 mg PRN Q6HRS PRN PO INFLAMMATION; Start 02/11/19 at 20:15 Ketorolac Tromethamine (Toradol 30mg Vial) 30 mg PRN Q6HRS PRN IV MODERATE PAIN; Start 02/11/19 at 20:15; Stop 02/16/19 at 20:14 Oxycodone/ Acetaminophen (Percocet 5/325) 1 tab PRN Q6HRS PRN PO MODERATE- SEVERE PAIN Last administered on 02/16/19at 09:25; Start 02/11/19 at 20:15 Morphine Sulfate (Morphine Sulfate) 1 mg PRN Q2HR PRN IV SEVERE PAIN; Start 02/11/19 at 20:45 Folic Acid (Folic Acid) 1 mg DAILY PO Last administered on 02/16/19 09:20; Start 02/12/19 at 09:00 Lisinopril (Prinivil) 40 mg DAILY PO Last administered on 02/16/19 09:21; Start 02/12/19 at 09:00 Mupirocin (Bactroban) 1 edda TID TP Last administered on 02/16/19 09:22; Start 02/11/19 at 21:00 Albuterol Sulfate (Ventolin Neb Soln) 2.5 mg PRN Q4HRS PRN NEB SHORTNESS OF BREATH Last administered on 02/14/19 16:15; Start 02/11/19 at 21:15 Azelastine HCl (Astelin) 1 spray DAILY NS Last administered on 02/16/19 09:22; Start 02/12/19 at 09:00 Fluticasone Propionate (Flonase) 2 spray DAILY NS Last administered on 02/16/19 09:22; Start 02/12/19 at 09:00 Levothyroxine Sodium (Synthroid) 50 mcg DAILY06 PO Last administered on 02/15/19 08:59; Start 02/12/19 at 06:00 Montelukast Sodium (Singulair) 10 mg QHS PO Last administered on 02/15/19 19:45; Start 02/12/19 at 21:00 Cefazolin Sodium/ Dextrose (Ancef 2gm Premix) 2 gm STK-MED ONCE IV ; Start 02/11/19 at 12:00; Stop 02/12/19 at 13:03; Status DC Meclizine HCl (Antivert) 12.5 mg PRN Q6HRS PRN PO DIZZINESS Last administered on 02/14/19 20:43; Start 02/12/19 at 14:00 Ciprofloxacin (Cipro) 500 mg BID PO Last administered on 02/16/19 09:20; Start 02/12/19 at 14:30 Lactobacillus Rhamnosus (Culturelle) 1 cap BID PO Last administered on 02/16/19 09:20; Start 02/12/19 at 21:00 Throat Lozenges (Cepacol Sore Throat Lozenge) 1 joe PRN Q2HRS PRN PO SORE THROAT; Start 02/13/19 at 16:00 Mupirocin (Bactroban) 1 edda TID TP Last administered on 02/16/19at 09:22; Start 02/13/19 at 16:30 Albuterol/ Ipratropium (Duoneb) 3 ml RTQID NEB Last administered on 02/16/19at 07:42; Start 02/14/19 at 20:00 Active Scripts Active Reported [floxin] 0.3% Btl 4-5 Drop LEFT EAR BID Zofran (Ondansetron Hcl) 4 Mg Tablet 1 Tab SL Q6HRS PRN Percocet 5-325 Mg Tablet (Oxycodone/Acetaminophen) 1 Each Tablet 1 Tab PO PRN Q6HRS PRN Augmentin 875-125 Tablet (Amoxicillin/Potassium Clav) 1 Each Tablet 1 Tab PO BID PRN Mupirocin Ointment (Mupirocin) 22 Gm Oint...g. 1 Edda TP TID Montelukast Sodium Tablet (Montelukast Sodium) 10 Mg Tablet 1 Tab PO DAILY Lisinopril 40 Mg Tablet 1 Tab PO DAILY Levothyroxine Sodium 50 Mcg Tablet 1 Tab PO DAILY Ventolin Hfa Inhaler (Albuterol Sulfate) 18 Gm Hfa.aer.ad 2 Puff INH Q4HRS PRN Folic Acid 1 Mg Tablet 1 Tab PO DAILY Flonase Allergy Relief (Fluticasone Propionate) 9.9 Ml [place].susp 2 Sprays NS DAILY Dymista Nasal [place] (Azelastine/Fluticasone) 23 Gm [place].pump 1 [place] NS DAILY Albuterol Sulfate Neb Soln (Albuterol Sulfate) 0.63 Mg/3 Ml Vial.neb 1 Vial NEB TID Allergies Allergies: Coded Allergies: Sshqfjj-Jix-Rpp Reductase Inhibitor (Verified Allergy, Intermediate, 02/11/19) anxious grass pollen (Verified Allergy, Intermediate, 02/11/19) prednisone (Verified Allergy, Intermediate, 02/11/19) delirious, anxious ragweed pollen (Verified Allergy, Intermediate, 02/11/19) Physical Exam General: Alert, Oriented X3, Cooperative HEENT: Atraumatic Lungs: Clear to auscultation Heart: S1S2, RRR Breasts: Not examined Abdomen: Normal bowel sounds, Soft Rectal Exam: not examined Extremities: No cyanosis Neuro: Normal speech, Cranial nerves 3-12 NL Psych/Mental Status: Mental status NL, Mood NL Vitals Vitals Vital Signs Date Time Temp Pulse Resp B/P (MAP) Pulse Ox O2 Delivery O2 Flow Rate FiO2 02/16/19 09:25 Nasal Cannula 2.0 02/16/19 09:21 86 165/56 02/16/19 07:43 97 02/16/19 07:00 97.9 16 97.9 Labs Labs Laboratory Tests Test 02/15/19 06:10 02/16/19 03:34 White Blood Count 4.2 x10^3/uL (4.0-11.0) 4.3 x10^3/uL (4.0-11.0) Red Blood Count 3.60 x10^6/uL (3.50-5.40) 3.55 x10^6/uL (3.50-5.40) Hemoglobin 10.9 g/dL (12.0-15.5) 11.0 g/dL (12.0-15.5) Hematocrit 33.9 % (36.0-47.0) 33.2 % (36.0-47.0) Mean Corpuscular Volume 94 fL (79-100) 94 fL (79-100) Mean Corpuscular Hemoglobin 30 pg (25-35) 31 pg (25-35) Mean Corpuscular Hemoglobin Concent 32 g/dL (31-37) 33 g/dL (31-37) Red Cell Distribution Width 13.8 % (11.5-14.5) 13.9 % (11.5-14.5) Platelet Count 137 x10^3/uL (140-400) 153 x10^3/uL (140-400) Neutrophils (%) (Auto) 63 % (31-73) 62 % (31-73) Lymphocytes (%) (Auto) 16 % (24-48) 17 % (24-48) Monocytes (%) (Auto) 16 % (0-9) 16 % (0-9) Eosinophils (%) (Auto) 4 % (0-3) 4 % (0-3) Basophils (%) (Auto) 1 % (0-3) 1 % (0-3) Neutrophils # (Auto) 2.6 x10^3uL (1.8-7.7) 2.7 x10^3uL (1.8-7.7) Lymphocytes # (Auto) 0.7 x10^3/uL (1.0-4.8) 0.8 x10^3/uL (1.0-4.8) Monocytes # (Auto) 0.7 x10^3/uL (0.0-1.1) 0.7 x10^3/uL (0.0-1.1) Eosinophils # (Auto) 0.2 x10^3/uL (0.0-0.7) 0.2 x10^3/uL (0.0-0.7) Basophils # (Auto) 0.0 x10^3/uL (0.0-0.2) 0.0 x10^3/uL (0.0-0.2) Sodium Level 139 mmol/L (136-145) 141 mmol/L (136-145) Potassium Level 4.1 mmol/L (3.5-5.1) 4.2 mmol/L (3.5-5.1) Chloride Level 100 mmol/L (98-107) 103 mmol/L (98-107) Carbon Dioxide Level 34 mmol/L (21-32) 35 mmol/L (21-32) Anion Gap 5 (6-14) 3 (6-14) Blood Urea Nitrogen 13 mg/dL (7-20) 16 mg/dL (7-20) Creatinine 1.1 mg/dL (0.6-1.0) 1.3 mg/dL (0.6-1.0) Estimated GFR (Cockcroft-Gault) 47.4 39.1 Glucose Level 104 mg/dL (70-99) 109 mg/dL (70-99) Calcium Level 8.5 mg/dL (8.5-10.1) 8.9 mg/dL (8.5-10.1) Laboratory Tests Test 02/16/19 03:34 White Blood Count 4.3 x10^3/uL (4.0-11.0) Red Blood Count 3.55 x10^6/uL (3.50-5.40) Hemoglobin 11.0 g/dL (12.0-15.5) Hematocrit 33.2 % (36.0-47.0) Mean Corpuscular Volume 94 fL (79-100) Mean Corpuscular Hemoglobin 31 pg (25-35) Mean Corpuscular Hemoglobin Concent 33 g/dL (31-37) Red Cell Distribution Width 13.9 % (11.5-14.5) Platelet Count 153 x10^3/uL (140-400) Neutrophils (%) (Auto) 62 % (31-73) Lymphocytes (%) (Auto) 17 % (24-48) Monocytes (%) (Auto) 16 % (0-9) Eosinophils (%) (Auto) 4 % (0-3) Basophils (%) (Auto) 1 % (0-3) Neutrophils # (Auto) 2.7 x10^3uL (1.8-7.7) Lymphocytes # (Auto) 0.8 x10^3/uL (1.0-4.8) Monocytes # (Auto) 0.7 x10^3/uL (0.0-1.1) Eosinophils # (Auto) 0.2 x10^3/uL (0.0-0.7) Basophils # (Auto) 0.0 x10^3/uL (0.0-0.2) Sodium Level 141 mmol/L (136-145) Potassium Level 4.2 mmol/L (3.5-5.1) Chloride Level 103 mmol/L (98-107) Carbon Dioxide Level 35 mmol/L (21-32) Anion Gap 3 (6-14) Blood Urea Nitrogen 16 mg/dL (7-20) Creatinine 1.3 mg/dL (0.6-1.0) Estimated GFR (Cockcroft-Gault) 39.1 Glucose Level 109 mg/dL (70-99) Calcium Level 8.9 mg/dL (8.5-10.1) VTE Prophylaxis Ordered VTE Prophylaxis Devices: Yes VTE Pharmacological Prophylaxi: Yes Assessment/Plan Assessment/Plan pod # 1 sclerotic mastoid with mucoid discharge within the mastoid cavity and middle ear. 25% perforation of the posterior inferior tympanic membrane. plan admit for iv antibiotics JENI DURHAM MD Feb 16, 2019 10:22
--- NOTE | 2019-02-16 10:28 | PDOC ---
PROGRESS NOTES Chief Complaint Chief Complaint Tympanomastoidectomy History of Present Illness History of Present Illness Patient was seen sitting in a chair today, POD4. she is still not improved with unsteady gait The patient is not well enough to go home. Gin would like her to go to a [facility]. The patient is having some confusion . Vitals Vitals Vital Signs Date Time Temp Pulse Resp B/P (MAP) Pulse Ox O2 Delivery O2 Flow Rate FiO2 02/16/19 09:25 Nasal Cannula 2.0 02/16/19 09:21 86 165/56 02/16/19 07:43 97 02/16/19 07:00 97.9 16 97.9 Physical Exam General: Alert, Oriented X3, Cooperative Heart: Regular rate, Normal S1, Normal S2, No murmurs Lungs: Clear (No wheezes, rales, or rhonchi) Abdomen: Normal bowel sounds, Soft Extremities: No clubbing, No cyanosis Skin: No rashes, No breakdown, No significant lesion Labs LABS Laboratory Tests Test 02/16/19 03:34 White Blood Count 4.3 x10^3/uL (4.0-11.0) Red Blood Count 3.55 x10^6/uL (3.50-5.40) Hemoglobin 11.0 g/dL (12.0-15.5) Hematocrit 33.2 % (36.0-47.0) Mean Corpuscular Volume 94 fL (79-100) Mean Corpuscular Hemoglobin 31 pg (25-35) Mean Corpuscular Hemoglobin Concent 33 g/dL (31-37) Red Cell Distribution Width 13.9 % (11.5-14.5) Platelet Count 153 x10^3/uL (140-400) Neutrophils (%) (Auto) 62 % (31-73) Lymphocytes (%) (Auto) 17 % (24-48) Monocytes (%) (Auto) 16 % (0-9) Eosinophils (%) (Auto) 4 % (0-3) Basophils (%) (Auto) 1 % (0-3) Neutrophils # (Auto) 2.7 x10^3uL (1.8-7.7) Lymphocytes # (Auto) 0.8 x10^3/uL (1.0-4.8) Monocytes # (Auto) 0.7 x10^3/uL (0.0-1.1) Eosinophils # (Auto) 0.2 x10^3/uL (0.0-0.7) Basophils # (Auto) 0.0 x10^3/uL (0.0-0.2) Sodium Level 141 mmol/L (136-145) Potassium Level 4.2 mmol/L (3.5-5.1) Chloride Level 103 mmol/L (98-107) Carbon Dioxide Level 35 mmol/L (21-32) Anion Gap 3 (6-14) Blood Urea Nitrogen 16 mg/dL (7-20) Creatinine 1.3 mg/dL (0.6-1.0) Estimated GFR (Cockcroft-Gault) 39.1 Glucose Level 109 mg/dL (70-99) Calcium Level 8.9 mg/dL (8.5-10.1) Review of Systems Review of Systems Problem List (body system elements) * Impaired fnctnl mobility * Obesity * Knowledge-Precautions * Balance * Knowledge-Body Mechanics * Age * Knowledge-safe techniques * Pain Clinical Presentation * Evolving Evaluation Complexity Level * Moderate Complexity Pt/caregiver agrees with plan of care/goals * Yes Patient condition at conclusion of therapy * Pt in chair * Personal alarm on * Call light in reach * Phone in reach * PtIn no apparent distress * Pt denies further needs Communicated Patient Care With (Name, Title) * Eduardo BEASLEY, Christy GUZMÁN Goal 1 - Bed Mobility Assistance Required * Independent Goal 1 Assessment * Appropriate - Continue Goal 2 - Transfers Assistance Required * Independent Goal 2 - Transfer Type * Sit to Stand Goal 2 Assessment * Appropriate - Continue Goal 3 - Ambulation Assistance Required * Independent Goal 3 - Ambulation Distance * 100' Goal 3 - Ambulation Device * Roller Walker Goal 3 Assessment * Appropriate - Continue Goal 4 - Stairs Assistance Required * Supervision Goal 4 - Number of Stairs * 1 Goal 4 - Device on Stairs * Roller Walker * Rail on Right * Rail on Left Goal 4 Assessment * Appropriate - Continue Goal 5 * Indep with HEP. Goal 5 Assessment * Appropriate - Continue Treatment Plan * Therapeutic Exercise * Bed Mobility Training * Transfer training * Gait Training * Body Mechanics Training * Dynamic Balance Training Frequency of Treatment Expected * 6 visits/week Duration of Treatment Expected * 2 weeks Discharge Recommendations * [facility]ation - DME * Rolling Walker needed * in order to complete ADLs * and ambulation safely Discharge Recommendation Comments * SNF at this time. Comment Review of Relevant I have reviewed the following items jeremie (where applicable) has been applied. Labs Laboratory Tests Test 02/15/19 06:10 02/16/19 03:34 White Blood Count 4.2 x10^3/uL (4.0-11.0) 4.3 x10^3/uL (4.0-11.0) Red Blood Count 3.60 x10^6/uL (3.50-5.40) 3.55 x10^6/uL (3.50-5.40) Hemoglobin 10.9 g/dL (12.0-15.5) 11.0 g/dL (12.0-15.5) Hematocrit 33.9 % (36.0-47.0) 33.2 % (36.0-47.0) Mean Corpuscular Volume 94 fL (79-100) 94 fL (79-100) Mean Corpuscular Hemoglobin 30 pg (25-35) 31 pg (25-35) Mean Corpuscular Hemoglobin Concent 32 g/dL (31-37) 33 g/dL (31-37) Red Cell Distribution Width 13.8 % (11.5-14.5) 13.9 % (11.5-14.5) Platelet Count 137 x10^3/uL (140-400) 153 x10^3/uL (140-400) Neutrophils (%) (Auto) 63 % (31-73) 62 % (31-73) Lymphocytes (%) (Auto) 16 % (24-48) 17 % (24-48) Monocytes (%) (Auto) 16 % (0-9) 16 % (0-9) Eosinophils (%) (Auto) 4 % (0-3) 4 % (0-3) Basophils (%) (Auto) 1 % (0-3) 1 % (0-3) Neutrophils # (Auto) 2.6 x10^3uL (1.8-7.7) 2.7 x10^3uL (1.8-7.7) Lymphocytes # (Auto) 0.7 x10^3/uL (1.0-4.8) 0.8 x10^3/uL (1.0-4.8) Monocytes # (Auto) 0.7 x10^3/uL (0.0-1.1) 0.7 x10^3/uL (0.0-1.1) Eosinophils # (Auto) 0.2 x10^3/uL (0.0-0.7) 0.2 x10^3/uL (0.0-0.7) Basophils # (Auto) 0.0 x10^3/uL (0.0-0.2) 0.0 x10^3/uL (0.0-0.2) Sodium Level 139 mmol/L (136-145) 141 mmol/L (136-145) Potassium Level 4.1 mmol/L (3.5-5.1) 4.2 mmol/L (3.5-5.1) Chloride Level 100 mmol/L (98-107) 103 mmol/L (98-107) Carbon Dioxide Level 34 mmol/L (21-32) 35 mmol/L (21-32) Anion Gap 5 (6-14) 3 (6-14) Blood Urea Nitrogen 13 mg/dL (7-20) 16 mg/dL (7-20) Creatinine 1.1 mg/dL (0.6-1.0) 1.3 mg/dL (0.6-1.0) Estimated GFR (Cockcroft-Gault) 47.4 39.1 Glucose Level 104 mg/dL (70-99) 109 mg/dL (70-99) Calcium Level 8.5 mg/dL (8.5-10.1) 8.9 mg/dL (8.5-10.1) Laboratory Tests Test 02/16/19 03:34 White Blood Count 4.3 x10^3/uL (4.0-11.0) Red Blood Count 3.55 x10^6/uL (3.50-5.40) Hemoglobin 11.0 g/dL (12.0-15.5) Hematocrit 33.2 % (36.0-47.0) Mean Corpuscular Volume 94 fL (79-100) Mean Corpuscular Hemoglobin 31 pg (25-35) Mean Corpuscular Hemoglobin Concent 33 g/dL (31-37) Red Cell Distribution Width 13.9 % (11.5-14.5) Platelet Count 153 x10^3/uL (140-400) Neutrophils (%) (Auto) 62 % (31-73) Lymphocytes (%) (Auto) 17 % (24-48) Monocytes (%) (Auto) 16 % (0-9) Eosinophils (%) (Auto) 4 % (0-3) Basophils (%) (Auto) 1 % (0-3) Neutrophils # (Auto) 2.7 x10^3uL (1.8-7.7) Lymphocytes # (Auto) 0.8 x10^3/uL (1.0-4.8) Monocytes # (Auto) 0.7 x10^3/uL (0.0-1.1) Eosinophils # (Auto) 0.2 x10^3/uL (0.0-0.7) Basophils # (Auto) 0.0 x10^3/uL (0.0-0.2) Sodium Level 141 mmol/L (136-145) Potassium Level 4.2 mmol/L (3.5-5.1) Chloride Level 103 mmol/L (98-107) Carbon Dioxide Level 35 mmol/L (21-32) Anion Gap 3 (6-14) Blood Urea Nitrogen 16 mg/dL (7-20) Creatinine 1.3 mg/dL (0.6-1.0) Estimated GFR (Cockcroft-Gault) 39.1 Glucose Level 109 mg/dL (70-99) Calcium Level 8.9 mg/dL (8.5-10.1) Medications Current Medications Ondansetron HCl (Zofran) 4 mg PRN Q6HRS PRN IV NAUSEA/VOMITING; Start 02/11/19 at 07:00; Stop 02/12/19 at 06:59; Status DC Fentanyl Citrate (Fentanyl 2ml Vial) 25 mcg PRN Q5MIN PRN IV MILD PAIN Last administered on 02/11/19at 18:25; Start 02/11/19 at 07:00; Stop 02/12/19 at 06:59; Status DC Fentanyl Citrate (Fentanyl 2ml Vial) 50 mcg PRN Q5MIN PRN IV MODERATE TO SEVERE PAIN Last administered on 02/11/19at 21:12; Start 02/11/19 at 07:00; Stop 02/12/19 at 06:59; Status DC Morphine Sulfate (Morphine Sulfate) 1 mg PRN Q10MIN PRN IV SEVERE PAIN; Start 02/11/19 at 07:00; Stop 02/12/19 at 06:59; Status DC Ringer's Solution 1,000 ml @ 30 mls/hr Q24H IV Last administered on 02/11/19at 12:32; Start 02/11/19 at 07:00; Stop 02/11/19 at 18:59; Status DC Lidocaine HCl (Xylocaine-Mpf 1% 2ml Vial) 2 ml PRN 1X PRN ID PRIOR TO IV START; Start 02/11/19 at 07:00; Stop 02/12/19 at 06:59; Status DC Hydromorphone HCl (Dilaudid) 0.5 mg PRN Q10MIN PRN IV SEV PAIN, Second choice; Start 02/11/19 at 07:00; Stop 02/12/19 at 06:59; Status DC Prochlorperazine Edisylate (Compazine) 5 mg PACU PRN PRN IV NAUSEA, MRX1; Start 02/11/19 at 07:00; Stop 02/12/19 at 06:59; Status DC Cefazolin Sodium/ Dextrose 50 ml @ 100 mls/hr 1X PREOP PRN IV PRIOR TO PROCEDURE Last administered on 02/11/19 14:12; Start 02/11/19 at 06:00; Stop 02/11/19 at 18:00; Status DC Gelatin (Gelfoam Size 100) 1 each STK-MED ONCE .ROUTE Last administered on 02/11/19 15:30; Start 02/11/19 at 12:07; Stop 02/11/19 at 13:07; Status DC Mupirocin (Bactroban) 22 edda STK-MED ONCE .ROUTE Last administered on 02/11/19 16:47; Start 02/11/19 at 12:07; Stop 02/11/19 at 13:07; Status DC Epinephrine HCl (EPINEPHrine SYRINGE) 1 mg STK-MED ONCE .ROUTE Last administered on 02/11/19 15:30; Start 02/11/19 at 12:07; Stop 02/11/19 at 13:07; Status DC Lidocaine/ Epinephrine (LIDOCAINE 1%-EPI 1:100,000 Multi-Dose) 20 ml STK-MED ONCE .ROUTE Last administered on 02/11/19at 14:24; Start 02/11/19 at 12:07; Stop 02/11/19 at 13:07; Status DC Glycopyrrolate (Robinul) 1 mg STK-MED ONCE .ROUTE ; Start 02/11/19 at 13:40; Stop 02/11/19 at 14:10; Status DC Rocuronium [place] (Zemuron) 50 mg STK-MED ONCE .ROUTE ; Start 02/11/19 at 13:41; Stop 02/11/19 at 14:10; Status DC Fentanyl Citrate (Fentanyl 2ml Vial) 100 mcg STK-MED ONCE .ROUTE ; Start 02/11/19 at 13:42; Stop 02/11/19 at 14:10; Status DC Neostigmine Methylsulfate (Neostigmine Methylsulfate) 5 mg STK-MED ONCE .ROUTE ; Start 02/11/19 at 13:42; Stop 02/11/19 at 14:10; Status DC Ephedrine Sulfate (ePHEDrine PF IN SALINE SYRINGE) 50 mg STK-MED ONCE IV ; Start 02/11/19 at 14:35; Stop 02/11/19 at 14:36; Status DC Oxymetazoline HCl (Afrin) 120 spray STK-MED ONCE NS ; Start 02/11/19 at 13:43; Stop 02/11/19 at 14:43; Status DC Fentanyl Citrate (Fentanyl 2ml Vial) 100 mcg STK-MED ONCE .ROUTE ; Start 02/11/19 at 14:43; Stop 02/11/19 at 14:44; Status DC Hydralazine HCl (Apresoline Inj) 20 mg STK-MED ONCE .ROUTE ; Start 02/11/19 at 15:19; Stop 02/11/19 at 15:20; Status DC Fentanyl Citrate (Fentanyl 2ml Vial) 100 mcg STK-MED ONCE .ROUTE ; Start 02/11/19 at 15:20; Stop 02/11/19 at 15:21; Status DC Ciprofloxacin (Ciloxan Ophth) 1 drop 1X ONCE AU Last administered on 02/11/19at 15:45; Start 02/11/19 at 15:45; Stop 02/11/19 at 15:46; Status DC Fentanyl Citrate (Fentanyl 2ml Vial) 100 mcg STK-MED ONCE .ROUTE ; Start 02/11/19 at 19:32; Stop 02/11/19 at 19:33; Status DC Amoxicillin/ Clavulanate Potassium (Augmentin 875/ 125mg) 1 tab BID PO Last administered on 02/12/19 21:16; Start 02/12/19 at 09:00; Stop 02/13/19 at 15:57; Status DC Acetaminophen (Tylenol) 1,000 mg PRN Q6HRS PRN PO MILD pain; Start 02/11/19 at 20:15 Ibuprofen (Motrin) 400 mg PRN Q6HRS PRN PO INFLAMMATION; Start 02/11/19 at 20:15 Ketorolac Tromethamine (Toradol 30mg Vial) 30 mg PRN Q6HRS PRN IV MODERATE PAIN; Start 02/11/19 at 20:15; Stop 02/16/19 at 20:14 Oxycodone/ Acetaminophen (Percocet 5/325) 1 tab PRN Q6HRS PRN PO MODERATE- SEVERE PAIN Last administered on 02/16/19 09:25; Start 02/11/19 at 20:15 Morphine Sulfate (Morphine Sulfate) 1 mg PRN Q2HR PRN IV SEVERE PAIN; Start 02/11/19 at 20:45 Folic Acid (Folic Acid) 1 mg DAILY PO Last administered on 02/16/19 09:20; Start 02/12/19 at 09:00 Lisinopril (Prinivil) 40 mg DAILY PO Last administered on 02/16/19 09:21; Start 02/12/19 at 09:00 Mupirocin (Bactroban) 1 edda TID TP Last administered on 02/16/19 09:22; Start 02/11/19 at 21:00 Albuterol Sulfate (Ventolin Neb Soln) 2.5 mg PRN Q4HRS PRN NEB SHORTNESS OF BREATH Last administered on 02/14/19 16:15; Start 02/11/19 at 21:15 Azelastine HCl (Astelin) 1 spray DAILY NS Last administered on 02/16/19 09:22; Start 02/12/19 at 09:00 Fluticasone Propionate (Flonase) 2 spray DAILY NS Last administered on 02/16/19 09:22; Start 02/12/19 at 09:00 Levothyroxine Sodium (Synthroid) 50 mcg DAILY06 PO Last administered on 08:59; Start 02/12/19 at 06:00 Montelukast Sodium (Singulair) 10 mg QHS PO Last administered on 02/15/19 19:45; Start 02/12/19 at 21:00 Cefazolin Sodium/ Dextrose (Ancef 2gm Premix) 2 gm STK-MED ONCE IV ; Start 02/11/19 at 12:00; Stop 02/12/19 at 13:03; Status DC Meclizine HCl (Antivert) 12.5 mg PRN Q6HRS PRN PO DIZZINESS Last administered on 02/14/19 20:43; Start 02/12/19 at 14:00 Ciprofloxacin (Cipro) 500 mg BID PO Last administered on 02/16/19 09:20; Start 02/12/19 at 14:30 Lactobacillus Rhamnosus (Culturelle) 1 cap BID PO Last administered on 02/16/19 09:20; Start 02/12/19 at 21:00 Throat Lozenges (Cepacol Sore Throat Lozenge) 1 joe PRN Q2HRS PRN PO SORE THROAT; Start 02/13/19 at 16:00 Mupirocin (Bactroban) 1 edda TID TP Last administered on 02/16/19 09:22; Start 02/13/19 at 16:30 Albuterol/ Ipratropium (Duoneb) 3 ml RTQID NEB Last administered on 02/16/19 07:42; Start 02/14/19 at 20:00 Active Scripts Active Reported [floxin] 0.3% Btl 4-5 Drop LEFT EAR BID Zofran (Ondansetron Hcl) 4 Mg Tablet 1 Tab SL Q6HRS PRN Percocet 5-325 Mg Tablet (Oxycodone/Acetaminophen) 1 Each Tablet 1 Tab PO PRN Q6HRS PRN Augmentin 875-125 Tablet (Amoxicillin/Potassium Clav) 1 Each Tablet 1 Tab PO BID PRN Mupirocin Ointment (Mupirocin) 22 Gm Oint...g. 1 Edda TP TID Montelukast Sodium Tablet (Montelukast Sodium) 10 Mg Tablet 1 Tab PO DAILY Lisinopril 40 Mg Tablet 1 Tab PO DAILY Levothyroxine Sodium 50 Mcg Tablet 1 Tab PO DAILY Ventolin Hfa Inhaler (Albuterol Sulfate) 18 Gm Hfa.aer.ad 2 Puff INH Q4HRS PRN Folic Acid 1 Mg Tablet 1 Tab PO DAILY Flonase Allergy Relief (Fluticasone Propionate) 9.9 Ml [place].susp 2 Sprays NS DAILY Dymista Nasal [place] (Azelastine/Fluticasone) 23 Gm [place].pump 1 [place] NS DAILY Albuterol Sulfate Neb Soln (Albuterol Sulfate) 0.63 Mg/3 Ml Vial.neb 1 Vial NEB TID Vitals/I & O Vital Sign - Last 24 Hours 02/15/19 02/15/19 02/15/19 02/15/19 11:00 11:49 15:00 16:06 Temp 98.5 97.7 98.5 97.7 Pulse 66 61 Resp 18 16 B/P (MAP) 149/48 (81) 145/55 (85) Pulse Ox 99 99 98 O2 Delivery Nasal Cannula Nasal Cannula Nasal Cannula Nasal Cannula O2 Flow Rate 2.0 2.0 2.0 2.0 02/15/19 02/15/19 02/15/19 02/15/19 19:30 19:45 19:57 20:20 Temp 98.5 98.5 Pulse 75 Resp 20 B/P (MAP) 184/73 (110) Pulse Ox 99 O2 Delivery Nasal Cannula Room Air Nasal Cannula Nasal Cannula O2 Flow Rate 2.0 1.5 2.0 02/15/19 02/15/19 02/16/19 02/16/19 20:45 23:30 03:31 07:00 Temp 98.0 98.0 97.9 98.0 98.0 97.9 Pulse 68 70 86 Resp 18 18 16 B/P (MAP) 142/57 (85) 132/62 (85) 165/56 (92) Pulse Ox 99 99 96 O2 Delivery Nasal Cannula Nasal Cannula Nasal Cannula Room Air O2 Flow Rate 1.5 1.5 02/16/19 02/16/19 02/16/19 07:43 09:21 09:25 Pulse 86 B/P (MAP) 165/56 Pulse Ox 97 O2 Delivery Nasal Cannula Nasal Cannula O2 Flow Rate 2.0 2.0 Intake and Output 02/15/19 02/15/19 02/16/19 15:00 23:00 07:00 Intake Total 300 ml 200 ml Output Total 0 ml Balance 300 ml 200 ml JENI DURHAM MD Feb 16, 2019 10:28
[2019-02-16 11:00] VITALS: BP 161/46
--- NOTE | 2019-02-16 12:28 | PDOC3 ---
Discharge Summary Date of Admission: Feb 12, 2019 Date of Discharge: Feb 16, 2019 Follow-Up: 1-2 days Admitting Diagnosis comment: DISCHARGE DX Chief Complaint Tympanomastoidectomy POD # 4 sclerotic mastoid with mucoid discharge within the mastoid cavity and middle ear. 25% perforation of the posterior inferior tympanic membrane. GAIT INSTABILITY Dementia History of Present Illness History of Present Illness Patient was seen sitting in a chair today, POD4. she is still not improved with unsteady gait The patient is not well enough to go home. Gin would like her to go to a [facility]. The patient is having some confusion . Vitals Vitals Vital Signs Date Time Temp Pulse Resp B/P (MAP) Pulse Ox O2 Delivery O2 Flow Rate FiO2 02/16/19 09:25 Nasal Cannula 2.0 02/16/19 09:21 86 165/56 02/16/19 07:43 97 02/16/19 07:00 97.9 16 97.9 Physical Exam General: Alert, Oriented X3, Cooperative Heart: Regular rate, Normal S1, Normal S2, No murmurs Lungs: Clear (No wheezes, rales, or rhonchi) Abdomen: Normal bowel sounds, Soft Extremities: No clubbing, No cyanosis Skin: No rashes, No breakdown, No significant lesion Labs Brief Hospital Course Ms. Isabel is a 84 old [sex] who presented with [ MASTOIDITIS, ACUTE] CONDITION AT DISCHARGE: Improved Discharge Medications Current Medications Ondansetron HCl (Zofran) 4 mg PRN Q6HRS PRN IV NAUSEA/VOMITING; Start 02/11/19 at 07:00; Stop 02/12/19 at 06:59; Status DC Fentanyl Citrate (Fentanyl 2ml Vial) 25 mcg PRN Q5MIN PRN IV MILD PAIN Last administered on 02/11/19at 18:25; Start 02/11/19 at 07:00; Stop 02/12/19 at 06:59; Status DC Fentanyl Citrate (Fentanyl 2ml Vial) 50 mcg PRN Q5MIN PRN IV MODERATE TO SEVERE PAIN Last administered on 02/11/19at 21:12; Start 02/11/19 at 07:00; Stop 02/12/19 at 06:59; Status DC Morphine Sulfate (Morphine Sulfate) 1 mg PRN Q10MIN PRN IV SEVERE PAIN; Start 02/11/19 at 07:00; Stop 02/12/19 at 06:59; Status DC Ringer's Solution 1,000 ml @ 30 mls/hr Q24H IV Last administered on 02/11/19at 12:32; Start 02/11/19 at 07:00; Stop 02/11/19 at 18:59; Status DC Lidocaine HCl (Xylocaine-Mpf 1% 2ml Vial) 2 ml PRN 1X PRN ID PRIOR TO IV START; Start 02/11/19 at 07:00; Stop 02/12/19 at 06:59; Status DC Hydromorphone HCl (Dilaudid) 0.5 mg PRN Q10MIN PRN IV SEV PAIN, Second choice; Start 02/11/19 at 07:00; Stop 02/12/19 at 06:59; Status DC Prochlorperazine Edisylate (Compazine) 5 mg PACU PRN PRN IV NAUSEA, MRX1; Start 02/11/19 at 07:00; Stop 02/12/19 at 06:59; Status DC Cefazolin Sodium/ Dextrose 50 ml @ 100 mls/hr 1X PREOP PRN IV PRIOR TO PROCEDURE Last administered on 02/11/19 14:12; Start 02/11/19 at 06:00; Stop 02/11/19 at 18:00; Status DC Gelatin (Gelfoam Size 100) 1 each STK-MED ONCE .ROUTE Last administered on 02/11/19 15:30; Start 02/11/19 at 12:07; Stop 02/11/19 at 13:07; Status DC Mupirocin (Bactroban) 22 edda STK-MED ONCE .ROUTE Last administered on 02/11/19 16:47; Start 02/11/19 at 12:07; Stop 02/11/19 at 13:07; Status DC Epinephrine HCl (EPINEPHrine SYRINGE) 1 mg STK-MED ONCE .ROUTE Last administered on 02/11/19 15:30; Start 02/11/19 at 12:07; Stop 02/11/19 at 13:07; Status DC Lidocaine/ Epinephrine (LIDOCAINE 1%-EPI 1:100,000 Multi-Dose) 20 ml STK-MED O NCE .ROUTE Last administered on 4/25/19at 14:24; Start 02/11/19 at 12:07; Stop 02/11/19 at 13:07; Status DC Glycopyrrolate (Robinul) 1 mg STK-MED ONCE .ROUTE ; Start 02/11/19 at 13:40; Stop 02/11/19 at 14:10; Status DC Rocuronium [place] (Zemuron) 50 mg STK-MED ONCE .ROUTE ; Start 02/11/19 at 13:41; Stop 02/11/19 at 14:10; Status DC Fentanyl Citrate (Fentanyl 2ml Vial) 100 mcg STK-MED ONCE .ROUTE ; Start 02/11/19 at 13:42; Stop 02/11/19 at 14:10; Status DC Neostigmine Methylsulfate (Neostigmine Methylsulfate) 5 mg STK-MED ONCE .ROUTE ; Start 02/11/19 at 13:42; Stop 02/11/19 at 14:10; Status DC Ephedrine Sulfate (ePHEDrine PF IN SALINE SYRINGE) 50 mg STK-MED ONCE IV ; Start 02/11/19 at 14:35; Stop 02/11/19 at 14:36; Status DC Oxymetazoline HCl (Afrin) 120 spray STK-MED ONCE NS ; Start 02/11/19 at 13:43; Stop 02/11/19 at 14:43; Status DC Fentanyl Citrate (Fentanyl 2ml Vial) 100 mcg STK-MED ONCE .ROUTE ; Start 02/11/19 at 14:43; Stop 02/11/19 at 14:44; Status DC Hydralazine HCl (Apresoline Inj) 20 mg STK-MED ONCE .ROUTE ; Start 02/11/19 at 15:19; Stop 02/11/19 at 15:20; Status DC Fentanyl Citrate (Fentanyl 2ml Vial) 100 mcg STK-MED ONCE .ROUTE ; Start 02/11/19 at 15:20; Stop 02/11/19 at 15:21; Status DC Ciprofloxacin (Ciloxan Ophth) 1 drop 1X ONCE AU Last administered on 02/11/19at 15:45; Start 02/11/19 at 15:45; Stop 02/11/19 at 15:46; Status DC Fentanyl Citrate (Fentanyl 2ml Vial) 100 mcg STK-MED ONCE .ROUTE ; Start 02/11/19 at 19:32; Stop 02/11/19 at 19:33; Status DC Amoxicillin/ Clavulanate Potassium (Augmentin 875/ 125mg) 1 tab BID PO Last administered on 02/12/19at 21:16; Start 02/12/19 at 09:00; Stop 02/13/19 at 15:57; Status DC Acetaminophen (Tylenol) 1,000 mg PRN Q6HRS PRN PO MILD pain; Start 02/11/19 at 20:15 Ibuprofen (Motrin) 400 mg PRN Q6HRS PRN PO INFLAMMATION; Start 02/11/19 at 20:15 Ketorolac Tromethamine (Toradol 30mg Vial) 30 mg PRN Q6HRS PRN IV MODERATE PAIN; Start 02/11/19 at 20:15; Stop 02/16/19 at 20:14 Oxycodone/ Acetaminophen (Percocet 5/325) 1 tab PRN Q6HRS PRN PO MODERATE- SEVERE PAIN Last administered on 02/16/19 09:25; Start 02/11/19 at 20:15 Morphine Sulfate (Morphine Sulfate) 1 mg PRN Q2HR PRN IV SEVERE PAIN; Start 02/11/19 at 20:45 Folic Acid (Folic Acid) 1 mg DAILY PO Last administered on 02/16/19 09:20; Start 02/12/19 at 09:00 Lisinopril (Prinivil) 40 mg DAILY PO Last administered on 02/16/19 09:21; Start 02/12/19 at 09:00 Mupirocin (Bactroban) 1 edda TID TP Last administered on 02/16/19 09:22; Start 02/11/19 at 21:00 Albuterol Sulfate (Ventolin Neb Soln) 2.5 mg PRN Q4HRS PRN NEB SHORTNESS OF BREATH Last administered on 02/14/19 16:15; Start 02/11/19 at 21:15 Azelastine HCl (Astelin) 1 spray DAILY NS Last administered on 02/16/19 09:22; Start 02/12/19 at 09:00 Fluticasone Propionate (Flonase) 2 spray DAILY NS Last administered on 02/16/19 09:22; Start 02/12/19 at 09:00 Levothyroxine Sodium (Synthroid) 50 mcg DAILY06 PO Last administered on 02/15/19 08:59; Start 02/12/19 at 06:00 Montelukast Sodium (Singulair) 10 mg QHS PO Last administered on 02/15/19 1 9:45; Start 02/12/19 at 21:00 Cefazolin Sodium/ Dextrose (Ancef 2gm Premix) 2 gm STK-MED ONCE IV ; Start 02/11/19 at 12:00; Stop 02/12/19 at 13:03; Status DC Meclizine HCl (Antivert) 12.5 mg PRN Q6HRS PRN PO DIZZINESS Last administered on 02/14/19 20:43; Start 02/12/19 at 14:00 Ciprofloxacin (Cipro) 500 mg BID PO Last administered on 02/16/19 09:20; Start 02/12/19 at 14:30 Lactobacillus Rhamnosus (Culturelle) 1 cap BID PO Last administered on 02/16/19 09:20; Start 02/12/19 at 21:00 Throat Lozenges (Cepacol Sore Throat Lozenge) 1 joe PRN Q2HRS PRN PO SORE THROAT; Start 02/13/19 at 16:00 Mupirocin (Bactroban) 1 edda TID TP Last administered on 02/16/19 09:22; Start 02/13/19 at 16:30 Albuterol/ Ipratropium (Duoneb) 3 ml RTQID NEB Last administered on 02/16/19 07:42; Start 02/14/19 at 20:00 Active Scripts Active Reported [floxin] 0.3% Btl 4-5 Drop LEFT EAR BID Zofran (Ondansetron Hcl) 4 Mg Tablet 1 Tab SL Q6HRS PRN Percocet 5-325 Mg Tablet (Oxycodone/Acetaminophen) 1 Each Tablet 1 Tab PO PRN Q6HRS PRN Augmentin 875-125 Tablet (Amoxicillin/Potassium Clav) 1 Each Tablet 1 Tab PO BID PRN Mupirocin Ointment (Mupirocin) 22 Gm Oint...g. 1 Edda TP TID Montelukast Sodium Tablet (Montelukast Sodium) 10 Mg Tablet 1 Tab PO DAILY Lisinopril 40 Mg Tablet 1 Tab PO DAILY Levothyroxine Sodium 50 Mcg Tablet 1 Tab PO DAILY Ventolin Hfa Inhaler (Albuterol Sulfate) 18 Gm Hfa.aer.ad 2 Puff INH Q4HRS PRN Folic Acid 1 Mg Tablet 1 Tab PO DAILY Flonase Allergy Relief (Fluticasone Propionate) 9.9 Ml [place].susp 2 Sprays NS DAILY Dymista Nasal [place] (Azelastine/Fluticasone) 23 Gm [place].pump 1 [place] NS DAILY Albuterol Sulfate Neb Soln (Albuterol Sulfate) 0.63 Mg/3 Ml Vial.neb 1 Vial NEB TID Vital Signs Vital Signs Date Time Temp Pulse Resp B/P (MAP) Pulse Ox O2 Delivery O2 Flow Rate FiO2 02/16/19 11:00 97.6 64 16 161/46 (84) 93 Room Air 97.6 02/16/19 09:25 2.0 Labs Laboratory Tests Test 02/15/19 06:10 02/16/19 03:34 White Blood Count 4.2 x10^3/uL (4.0-11.0) 4.3 x10^3/uL (4.0-11.0) Red Blood Count 3.60 x10^6/uL (3.50-5.40) 3.55 x10^6/uL (3.50-5.40) Hemoglobin 10.9 g/dL (12.0-15.5) 11.0 g/dL (12.0-15.5) Hematocrit 33.9 % (36.0-47.0) 33.2 % (36.0-47.0) Mean Corpuscular Volume 94 fL (79-100) 94 fL (79-100) Mean Corpuscular Hemoglobin 30 pg (25-35) 31 pg (25-35) Mean Corpuscular Hemoglobin Concent 32 g/dL (31-37) 33 g/dL (31-37) Red Cell Distribution Width 13.8 % (11.5-14.5) 13.9 % (11.5-14.5) Platelet Count 137 x10^3/uL (140-400) 153 x10^3/uL (140-400) Neutrophils (%) (Auto) 63 % (31-73) 62 % (31-73) Lymphocytes (%) (Auto) 16 % (24-48) 17 % (24-48) Monocytes (%) (Auto) 16 % (0-9) 16 % (0-9) Eosinophils (%) (Auto) 4 % (0-3) 4 % (0-3) Basophils (%) (Auto) 1 % (0-3) 1 % (0-3) Neutrophils # (Auto) 2.6 x10^3uL (1.8-7.7) 2.7 x10^3uL (1.8-7.7) Lymphocytes # (Auto) 0.7 x10^3/uL (1.0-4.8) 0.8 x10^3/uL (1.0-4.8) Monocytes # (Auto) 0.7 x10^3/uL (0.0-1.1) 0.7 x10^3/uL (0.0-1.1) Eosinophils # (Auto) 0.2 x10^3/uL (0.0-0.7) 0.2 x10^3/uL (0.0-0.7) Basophils # (Auto) 0.0 x10^3/uL (0.0-0.2) 0.0 x10^3/uL (0.0-0.2) Sodium Level 139 mmol/L (136-145) 141 mmol/L (136-145) Potassium Level 4.1 mmol/L (3.5-5.1) 4.2 mmol/L (3.5-5.1) Chloride Level 100 mmol/L (98-107) 103 mmol/L (98-107) Carbon Dioxide Level 34 mmol/L (21-32) 35 mmol/L (21-32) Anion Gap 5 (6-14) 3 (6-14) Blood Urea Nitrogen 13 mg/dL (7-20) 16 mg/dL (7-20) Creatinine 1.1 mg/dL (0.6-1.0) 1.3 mg/dL (0.6-1.0) Estimated GFR (Cockcroft-Gault) 47.4 39.1 Glucose Level 104 mg/dL (70-99) 109 mg/dL (70-99) Calcium Level 8.5 mg/dL (8.5-10.1) 8.9 mg/dL (8.5-10.1) Laboratory Tests Test 02/16/19 03:34 White Blood Count 4.3 x10^3/uL (4.0-11.0) Red Blood Count 3.55 x10^6/uL (3.50-5.40) Hemoglobin 11.0 g/dL (12.0-15.5) Hematocrit 33.2 % (36.0-47.0) Mean Corpuscular Volume 94 fL (79-100) Mean Corpuscular Hemoglobin 31 pg (25-35) Mean Corpuscular Hemoglobin Concent 33 g/dL (31-37) Red Cell Distribution Width 13.9 % (11.5-14.5) Platelet Count 153 x10^3/uL (140-400) Neutrophils (%) (Auto) 62 % (31-73) Lymphocytes (%) (Auto) 17 % (24-48) Monocytes (%) (Auto) 16 % (0-9) Eosinophils (%) (Auto) 4 % (0-3) Basophils (%) (Auto) 1 % (0-3) Neutrophils # (Auto) 2.7 x10^3uL (1.8-7.7) Lymphocytes # (Auto) 0.8 x10^3/uL (1.0-4.8) Monocytes # (Auto) 0.7 x10^3/uL (0.0-1.1) Eosinophils # (Auto) 0.2 x10^3/uL (0.0-0.7) Basophils # (Auto) 0.0 x10^3/uL (0.0-0.2) Sodium Level 141 mmol/L (136-145) Potassium Level 4.2 mmol/L (3.5-5.1) Chloride Level 103 mmol/L (98-107) Carbon Dioxide Level 35 mmol/L (21-32) Anion Gap 3 (6-14) Blood Urea Nitrogen 16 mg/dL (7-20) Creatinine 1.3 mg/dL (0.6-1.0) Estimated GFR (Cockcroft-Gault) 39.1 Glucose Level 109 mg/dL (70-99) Calcium Level 8.9 mg/dL (8.5-10.1) Allergies Allergies Coded Allergies Type Severity Reaction Last Updated Verified Cbwvzwn-[id number]-Jbh Reductase Inhibitor Allergy Intermediate 4/25/19 Yes grass pollen Allergy Intermediate 02/11/19 Yes prednisone Allergy Intermediate 02/11/19 Yes ragweed pollen Allergy Intermediate 02/11/19 Yes Disposition/Orders: Other (d/c snf bed) Patient Instructions d/c planning 37 min JENI DURHAM MD Feb 16, 2019 12:28
--- NOTE | 2019-02-16 13:21 | PDOC ---
PROGRESS NOTES Subjective Subjective Patient was seen early this AM. Still some confusion but overall improving. Objective Objective Vital Signs Date Time Temp Pulse Resp B/P (MAP) Pulse Ox O2 Delivery O2 Flow Rate FiO2 02/16/19 11:00 97.6 64 16 161/46 (84) 93 Room Air 97.6 02/16/19 09:25 2.0 Intake and Output 02/16/19 07:00 Intake Total 500 ml Output Total 0 ml Balance 500 ml Intake Oral 500 ml Output Urine Total 0 ml # Voids 2 Physical Exam Physical Exam left ear: ecchymosis postauricular area into neck. Packing within ear canal, incision c/d/i Face: ecchymosis around eyes, mouth. good facial movement Eyes: EOMI, PERRL Assessment Assessment 84 year old female admitted for unsteadiness and confusion after left tympanomastoidectomy for chronic otomastoiditis. Overall, improving daily. Plan Plan of Care - Patient to be discharged to SNU later today to continue PT rehab. - Recommend continuing ciprofloxacin 500mg BID for 10 days postoperatively due to chronic infection. - Continue dry ear precautions on left side. - Follow up with myself next week. Comment Review of Relevant I have reviewed the following items jeremie (where applicable) has been applied. Labs Laboratory Tests Test 02/15/19 06:10 02/16/19 03:34 White Blood Count 4.2 x10^3/uL (4.0-11.0) 4.3 x10^3/uL (4.0-11.0) Red Blood Count 3.60 x10^6/uL (3.50-5.40) 3.55 x10^6/uL (3.50-5.40) Hemoglobin 10.9 g/dL (12.0-15.5) 11.0 g/dL (12.0-15.5) Hematocrit 33.9 % (36.0-47.0) 33.2 % (36.0-47.0) Mean Corpuscular Volume 94 fL (79-100) 94 fL (79-100) Mean Corpuscular Hemoglobin 30 pg (25-35) 31 pg (25-35) Mean Corpuscular Hemoglobin Concent 32 g/dL (31-37) 33 g/dL (31-37) Red Cell Distribution Width 13.8 % (11.5-14.5) 13.9 % (11.5-14.5) Platelet Count 137 x10^3/uL (140-400) 153 x10^3/uL (140-400) Neutrophils (%) (Auto) 63 % (31-73) 62 % (31-73) Lymphocytes (%) (Auto) 16 % (24-48) 17 % (24-48) Monocytes (%) (Auto) 16 % (0-9) 16 % (0-9) Eosinophils (%) (Auto) 4 % (0-3) 4 % (0-3) Basophils (%) (Auto) 1 % (0-3) 1 % (0-3) Neutrophils # (Auto) 2.6 x10^3uL (1.8-7.7) 2.7 x10^3uL (1.8-7.7) Lymphocytes # (Auto) 0.7 x10^3/uL (1.0-4.8) 0.8 x10^3/uL (1.0-4.8) Monocytes # (Auto) 0.7 x10^3/uL (0.0-1.1) 0.7 x10^3/uL (0.0-1.1) Eosinophils # (Auto) 0.2 x10^3/uL (0.0-0.7) 0.2 x10^3/uL (0.0-0.7) Basophils # (Auto) 0.0 x10^3/uL (0.0-0.2) 0.0 x10^3/uL (0.0-0.2) Sodium Level 139 mmol/L (136-145) 141 mmol/L (136-145) Potassium Level 4.1 mmol/L (3.5-5.1) 4.2 mmol/L (3.5-5.1) Chloride Level 100 mmol/L (98-107) 103 mmol/L (98-107) Carbon Dioxide Level 34 mmol/L (21-32) 35 mmol/L (21-32) Anion Gap 5 (6-14) 3 (6-14) Blood Urea Nitrogen 13 mg/dL (7-20) 16 mg/dL (7-20) Creatinine 1.1 mg/dL (0.6-1.0) 1.3 mg/dL (0.6-1.0) Estimated GFR (Cockcroft-Gault) 47.4 39.1 Glucose Level 104 mg/dL (70-99) 109 mg/dL (70-99) Calcium Level 8.5 mg/dL (8.5-10.1) 8.9 mg/dL (8.5-10.1) Laboratory Tests Test 02/16/19 03:34 White Blood Count 4.3 x10^3/uL (4.0-11.0) Red Blood Count 3.55 x10^6/uL (3.50-5.40) Hemoglobin 11.0 g/dL (12.0-15.5) Hematocrit 33.2 % (36.0-47.0) Mean Corpuscular Volume 94 fL (79-100) Mean Corpuscular Hemoglobin 31 pg (25-35) Mean Corpuscular Hemoglobin Concent 33 g/dL (31-37) Red Cell Distribution Width 13.9 % (11.5-14.5) Platelet Count 153 x10^3/uL (140-400) Neutrophils (%) (Auto) 62 % (31-73) Lymphocytes (%) (Auto) 17 % (24-48) Monocytes (%) (Auto) 16 % (0-9) Eosinophils (%) (Auto) 4 % (0-3) Basophils (%) (Auto) 1 % (0-3) Neutrophils # (Auto) 2.7 x10^3uL (1.8-7.7) Lymphocytes # (Auto) 0.8 x10^3/uL (1.0-4.8) Monocytes # (Auto) 0.7 x10^3/uL (0.0-1.1) Eosinophils # (Auto) 0.2 x10^3/uL (0.0-0.7) Basophils # (Auto) 0.0 x10^3/uL (0.0-0.2) Sodium Level 141 mmol/L (136-145) Potassium Level 4.2 mmol/L (3.5-5.1) Chloride Level 103 mmol/L (98-107) Carbon Dioxide Level 35 mmol/L (21-32) Anion Gap 3 (6-14) Blood Urea Nitrogen 16 mg/dL (7-20) Creatinine 1.3 mg/dL (0.6-1.0) Estimated GFR (Cockcroft-Gault) 39.1 Glucose Level 109 mg/dL (70-99) Calcium Level 8.9 mg/dL (8.5-10.1) Medications Current Medications Ondansetron HCl (Zofran) 4 mg PRN Q6HRS PRN IV NAUSEA/VOMITING; Start 02/11/19 at 07:00; Stop 02/12/19 at 06:59; Status DC Fentanyl Citrate (Fentanyl 2ml Vial) 25 mcg PRN Q5MIN PRN IV MILD PAIN Last administered on 02/11/19at 18:25; Start 02/11/19 at 07:00; Stop 02/12/19 at 06:59; Status DC Fentanyl Citrate (Fentanyl 2ml Vial) 50 mcg PRN Q5MIN PRN IV MODERATE TO SEVERE PAIN Last administered on 02/11/19at 21:12; Start 02/11/19 at 07:00; Stop 02/12/19 at 06:59; Status DC Morphine Sulfate (Morphine Sulfate) 1 mg PRN Q10MIN PRN IV SEVERE PAIN; Start 02/11/19 at 07:00; Stop 02/12/19 at 06:59; Status DC Ringer's Solution 1,000 ml @ 30 mls/hr Q24H IV Last administered on 02/11/19at 12:32; Start 02/11/19 at 07:00; Stop 02/11/19 at 18:59; Status DC Lidocaine HCl (Xylocaine-Mpf 1% 2ml Vial) 2 ml PRN 1X PRN ID PRIOR TO IV START; Start 02/11/19 at 07:00; Stop 02/12/19 at 06:59; Status DC Hydromorphone HCl (Dilaudid) 0.5 mg PRN Q10MIN PRN IV SEV PAIN, Second choice; Start 02/11/19 at 07:00; Stop 02/12/19 at 06:59; Status DC Prochlorperazine Edisylate (Compazine) 5 mg PACU PRN PRN IV NAUSEA, MRX1; Start 02/11/19 at 07:00; Stop 02/12/19 at 06:59; Status DC Cefazolin Sodium/ Dextrose 50 ml @ 100 mls/hr 1X PREOP PRN IV PRIOR TO PROCEDURE Last administered on 02/11/19 14:12; Start 02/11/19 at 06:00; Stop 02/11/19 at 18:00; Status DC Gelatin (Gelfoam Size 100) 1 each STK-MED ONCE .ROUTE Last administered on 02/11/19at 15:30; Start 02/11/19 at 12:07; Stop 02/11/19 at 13:07; Status DC Mupirocin (Bactroban) 22 edda STK-MED ONCE .ROUTE Last administered on 02/11/19at 16:47; Start 02/11/19 at 12:07; Stop 02/11/19 at 13:07; Status DC Epinephrine HCl (EPINEPHrine SYRINGE) 1 mg STK-MED ONCE .ROUTE Last administered on 02/11/19 15:30; Start 02/11/19 at 12:07; Stop 02/11/19 at 13:07; Status DC Lidocaine/ Epinephrine (LIDOCAINE 1%-EPI 1:100,000 Multi-Dose) 20 ml STK-MED ONCE .ROUTE Last administered on 02/11/19 14:24; Start 02/11/19 at 12:07; Stop 02/11/19 at 13:07; Status DC Glycopyrrolate (Robinul) 1 mg STK-MED ONCE .ROUTE ; Start 02/11/19 at 13:40; Stop 02/11/19 at 14:10; Status DC Rocuronium [place] (Zemuron) 50 mg STK-MED ONCE .ROUTE ; Start 02/11/19 at 13:41; Stop 02/11/19 at 14:10; Status DC Fentanyl Citrate (Fentanyl 2ml Vial) 100 mcg STK-MED ONCE .ROUTE ; Start 02/11/19 at 13:42; Stop 02/11/19 at 14:10; Status DC Neostigmine Methylsulfate (Neostigmine Methylsulfate) 5 mg STK-MED ONCE .ROUTE ; Start 02/11/19 at 13:42; Stop 02/11/19 at 14:10; Status DC Ephedrine Sulfate (ePHEDrine PF IN SALINE SYRINGE) 50 mg STK-MED ONCE IV ; Start 02/11/19 at 14:35; Stop 02/11/19 at 14:36; Status DC Oxymetazoline HCl (Afrin) 120 spray STK-MED ONCE NS ; Start 02/11/19 at 13:43; Stop 02/11/19 at 14:43; Status DC Fentanyl Citrate (Fentanyl 2ml Vial) 100 mcg STK-MED ONCE .ROUTE ; Start 02/11/19 at 14:43; Stop 02/11/19 at 14:44; Status DC Hydralazine HCl (Apresoline Inj) 20 mg STK-MED ONCE .ROUTE ; Start 02/11/19 at 15:19; Stop 02/11/19 at 15:20; Status DC Fentanyl Citrate (Fentanyl 2ml Vial) 100 mcg STK-MED ONCE .ROUTE ; Start 02/11/19 at 15:20; Stop 02/11/19 at 15:21; Status DC Ciprofloxacin (Ciloxan Ophth) 1 drop 1X ONCE AU Last administered on 02/11/19at 15:45; Start 02/11/19 at 15:45; Stop 02/11/19 at 15:46; Status DC Fentanyl Citrate (Fentanyl 2ml Vial) 100 mcg STK-MED ONCE .ROUTE ; Start 02/11/19 at 19:32; Stop 02/11/19 at 19:33; Status DC Amoxicillin/ Clavulanate Potassium (Augmentin 875/ 125mg) 1 tab BID PO Last administered on 02/12/19at 21:16; Start 02/12/19 at 09:00; Stop 02/13/19 at 15:57; Status DC Acetaminophen (Tylenol) 1,000 mg PRN Q6HRS PRN PO MILD pain; Start 02/11/19 at 20:15 Ibuprofen (Motrin) 400 mg PRN Q6HRS PRN PO INFLAMMATION; Start 02/11/19 at 20:15 Ketorolac Tromethamine (Toradol 30mg Vial) 30 mg PRN Q6HRS PRN IV MODERATE PAIN; Start 02/11/19 at 20:15; Stop 02/16/19 at 20:14 Oxycodone/ Acetaminophen (Percocet 5/325) 1 tab PRN Q6HRS PRN PO MODERATE- SEVERE PAIN Last administered on 02/16/19at 09:25; Start 02/11/19 at 20:15 Morphine Sulfate (Morphine Sulfate) 1 mg PRN Q2HR PRN IV SEVERE PAIN; Start 02/11/19 at 20:45 Folic Acid (Folic Acid) 1 mg DAILY PO Last administered on 02/16/19 09:20; Start 02/12/19 at 09:00 Lisinopril (Prinivil) 40 mg DAILY PO Last administered on 02/16/19 09:21; Start 02/12/19 at 09:00 Mupirocin (Bactroban) 1 edda TID TP Last administered on 02/16/19 09:22; Start 02/11/19 at 21:00 Albuterol Sulfate (Ventolin Neb Soln) 2.5 mg PRN Q4HRS PRN NEB SHORTNESS OF BREATH Last administered on 02/14/19 16:15; Start 02/11/19 at 21:15 Azelastine HCl (Astelin) 1 spray DAILY NS Last administered on 02/16/19 09:22; Start 02/12/19 at 09:00 Fluticasone Propionate (Flonase) 2 spray DAILY NS Last administered on 02/16/19 09:22; Start 02/12/19 at 09:00 Levothyroxine Sodium (Synthroid) 50 mcg DAILY06 PO Last administered on 02/15/19 08:59; Start 02/12/19 at 06:00 Montelukast Sodium (Singulair) 10 mg QHS PO Last administered on 02/15/19 19:45; Start 02/12/19 at 21:00 Cefazolin Sodium/ Dextrose (Ancef 2gm Premix) 2 gm STK-MED ONCE IV ; Start 02/11/19 at 12:00; Stop 02/12/19 at 13:03; Status DC Meclizine HCl (Antivert) 12.5 mg PRN Q6HRS PRN PO DIZZINESS Last administered on 02/14/19 20:43; Start 02/12/19 at 14:00 Ciprofloxacin (Cipro) 500 mg BID PO Last administered on 02/16/19 09:20; Start 02/12/19 at 14:30 Lactobacillus Rhamnosus (Culturelle) 1 cap BID PO Last administered on 01/20 09:20; Start 02/12/19 at 21:00 Throat Lozenges (Cepacol Sore Throat Lozenge) 1 joe PRN Q2HRS PRN PO SORE THROAT; Start 02/13/19 at 16:00 Mupirocin (Bactroban) 1 edda TID TP Last administered on 02/16/19at 09:22; Start 02/13/19 at 16:30 Albuterol/ Ipratropium (Duoneb) 3 ml RTQID NEB Last administered on 02/16/19at 07:42; Start 02/14/19 at 20:00 Active Scripts Active Reported [floxin] 0.3% Btl 4-5 Drop LEFT EAR BID Zofran (Ondansetron Hcl) 4 Mg Tablet 1 Tab SL Q6HRS PRN Percocet 5-325 Mg Tablet (Oxycodone/Acetaminophen) 1 Each Tablet 1 Tab PO PRN Q6HRS PRN Augmentin 875-125 Tablet (Amoxicillin/Potassium Clav) 1 Each Tablet 1 Tab PO BID PRN Mupirocin Ointment (Mupirocin) 22 Gm Oint...g. 1 Edda TP TID Montelukast Sodium Tablet (Montelukast Sodium) 10 Mg Tablet 1 Tab PO DAILY Lisinopril 40 Mg Tablet 1 Tab PO DAILY Levothyroxine Sodium 50 Mcg Tablet 1 Tab PO DAILY Ventolin Hfa Inhaler (Albuterol Sulfate) 18 Gm Hfa.aer.ad 2 Puff INH Q4HRS PRN Folic Acid 1 Mg Tablet 1 Tab PO DAILY Flonase Allergy Relief (Fluticasone Propionate) 9.9 Ml [place].susp 2 Sprays NS DAILY Dymista Nasal [place] (Azelastine/Fluticasone) 23 Gm [place].pump 1 [place] NS DAILY Albuterol Sulfate Neb Soln (Albuterol Sulfate) 0.63 Mg/3 Ml Vial.neb 1 Vial NEB TID Vitals/I & O Vital Sign - Last 24 Hours 02/15/19 02/15/19 02/15/19 02/15/19 15:00 16:06 19:30 19:45 Temp 97.7 97.7 Pulse 61 Resp 16 B/P (MAP) 145/55 (85) Pulse Ox 98 O2 Delivery Nasal Cannula Nasal Cannula Nasal Cannula Room Air O2 Flow Rate 2.0 2.0 2.0 02/15/19 02/15/19 02/15/19 02/15/19 19:57 20:20 20:45 23:30 Temp 98.5 98.0 98.5 98.0 Pulse 75 68 Resp 20 18 B/P (MAP) 184/73 (110) 142/57 (85) Pulse Ox 99 99 O2 Delivery Nasal Cannula Nasal Cannula Nasal Cannula Nasal Cannula O2 Flow Rate 1.5 2.0 1.5 02/16/19 02/16/19 02/16/19 02/16/19 03:31 07:00 07:43 08:00 Temp 98.0 97.9 98.0 97.9 Pulse 70 86 Resp 18 16 B/P (MAP) 132/62 (85) 165/56 (92) Pulse Ox 99 96 97 O2 Delivery Nasal Cannula Room Air Nasal Cannula Nasal Cannula O2 Flow Rate 1.5 2.0 2.0 02/16/19 02/16/19 02/16/19 09:21 09:25 11:00 Temp 97.6 97.6 Pulse 86 64 Resp 16 B/P (MAP) 165/56 161/46 (84) Pulse Ox 93 O2 Delivery Nasal Cannula Room Air O2 Flow Rate 2.0 Intake and Output 02/15/19 02/15/19 02/16/19 15:00 23:00 07:00 Intake Total 300 ml 200 ml Output Total 0 ml Balance 300 ml 200 ml KIKE PHILIPPE MD Feb 16, 2019 13:21
[2019-02-16] MEDS: IBUPROFEN 400 MG TABLET. PO PRN (14:20)
[2019-02-16 15:00] VITALS: BP 143/45
[2019-02-16 19:25] VITALS: BP 164/51
[2019-02-16] MEDS: MONTELUKAST SODIUM 10 MG TABLET. PO SCH (21:02)
[2019-02-16 23:36] VITALS: BP 185/78
[2019-02-17] VITALS (7 sets, daily range): BP systolic 136–199; BP diastolic 47–79
[2019-02-17] MEDS: LEVOTHYROXINE 50 MCG TABLET PO SCH (05:34)
[2019-02-17] MEDS: BENZOCAINE/MENTHOL LOZENGE. PO PRN (05:41)
[2019-02-17] MEDS: oxyCODONE/APAP 5/325 1 TAB TABLET PO PRN ×2 (05:59→14:26)
[2019-02-17] MEDS: IPRATRPIUM/ALBUTEROL 0.5/2.5MG 3 ML NEBU. NEB SCH ×4 (07:37→20:00)
[2019-02-17] MEDS: MUPIROCIN 2 % NASAL OINTMENT 22GM TUBE. TP SCH ×3 (08:56→20:12)
[2019-02-17] MEDS: LACTOBACILLUS RHAMNOSUS GG 1 CAPSULE. PO SCH ×2 (08:56→20:10)
[2019-02-17] MEDS: AZELASTINE NASAL SPRAY 30ML BOTTLE. NS SCH (08:56)
[2019-02-17] MEDS: FLUTICASONE 50MCG/NASAL SPRAY 16GM BOTTLE. NS SCH (08:56)
[2019-02-17] MEDS: LISINOPRIL 20 MG TABLET PO SCH (08:57)
[2019-02-17] MEDS: FOLIC ACID 1 MG TABLET. PO SCH (08:57)
[2019-02-17] MEDS: MUPIROCIN 2 % TOPICAL CREAM 30GM TUBE. TP SCH ×3 (08:57→20:12)
[2019-02-17] MEDS: CIPROFLOXACIN HCL 250 MG TABLET. PO SCH ×2 (08:57→20:11)
--- NOTE | 2019-02-17 10:41 | PDOC ---
PROGRESS NOTES Chief Complaint Chief Complaint Tympanomastoidectomy History of Present Illness History of Present Illness Patient was seen sitting in a chair today, POD4. she is still not improved with unsteady gait The patient is not well enough to go home. Gin would like her to go to a [facility]. The patient is having some confusion . D/C TODAY D/C PLANNING 37 MIN Vitals Vitals Vital Signs Date Time Temp Pulse Resp B/P (MAP) Pulse Ox O2 Delivery O2 Flow Rate FiO2 02/17/19 08:57 69 199/79 02/17/19 07:38 97 Nasal Cannula 2.0 02/17/19 07:00 97.9 18 97.9 Physical Exam General: Alert, Oriented X3, Cooperative Heart: Regular rate, Normal S1, Normal S2, No murmurs Lungs: Clear (No wheezes, rales, or rhonchi) Abdomen: Normal bowel sounds, Soft Extremities: No clubbing, No cyanosis Skin: No rashes, No breakdown, No significant lesion Comment Review of Relevant I have reviewed the following items jeremie (where applicable) has been applied. Labs Laboratory Tests Test 02/16/19 03:34 White Blood Count 4.3 x10^3/uL (4.0-11.0) Red Blood Count 3.55 x10^6/uL (3.50-5.40) Hemoglobin 11.0 g/dL (12.0-15.5) Hematocrit 33.2 % (36.0-47.0) Mean Corpuscular Volume 94 fL (79-100) Mean Corpuscular Hemoglobin 31 pg (25-35) Mean Corpuscular Hemoglobin Concent 33 g/dL (31-37) Red Cell Distribution Width 13.9 % (11.5-14.5) Platelet Count 153 x10^3/uL (140-400) Neutrophils (%) (Auto) 62 % (31-73) Lymphocytes (%) (Auto) 17 % (24-48) Monocytes (%) (Auto) 16 % (0-9) Eosinophils (%) (Auto) 4 % (0-3) Basophils (%) (Auto) 1 % (0-3) Neutrophils # (Auto) 2.7 x10^3uL (1.8-7.7) Lymphocytes # (Auto) 0.8 x10^3/uL (1.0-4.8) Monocytes # (Auto) 0.7 x10^3/uL (0.0-1.1) Eosinophils # (Auto) 0.2 x10^3/uL (0.0-0.7) Basophils # (Auto) 0.0 x10^3/uL (0.0-0.2) Sodium Level 141 mmol/L (136-145) Potassium Level 4.2 mmol/L (3.5-5.1) Chloride Level 103 mmol/L (98-107) Carbon Dioxide Level 35 mmol/L (21-32) Anion Gap 3 (6-14) Blood Urea Nitrogen 16 mg/dL (7-20) Creatinine 1.3 mg/dL (0.6-1.0) Estimated GFR (Cockcroft-Gault) 39.1 Glucose Level 109 mg/dL (70-99) Calcium Level 8.9 mg/dL (8.5-10.1) Medications Current Medications Ondansetron HCl (Zofran) 4 mg PRN Q6HRS PRN IV NAUSEA/VOMITING; Start 02/11/19 at 07:00; Stop 02/12/19 at 06:59; Status DC Fentanyl Citrate (Fentanyl 2ml Vial) 25 mcg PRN Q5MIN PRN IV MILD PAIN Last administered on 02/11/19at 18:25; Start 02/11/19 at 07:00; Stop 02/12/19 at 06:59; Status DC Fentanyl Citrate (Fentanyl 2ml Vial) 50 mcg PRN Q5MIN PRN IV MODERATE TO SEVERE PAIN Last administered on 02/11/19at 21:12; Start 02/11/19 at 07:00; Stop 02/12/19 at 06:59; Status DC Morphine Sulfate (Morphine Sulfate) 1 mg PRN Q10MIN PRN IV SEVERE PAIN; Start 02/11/19 at 07:00; Stop 02/12/19 at 06:59; Status DC Ringer's Solution 1,000 ml @ 30 mls/hr Q24H IV Last administered on 02/11/19at 12:32; Start 02/11/19 at 07:00; Stop 02/11/19 at 18:59; Status DC Lidocaine HCl (Xylocaine-Mpf 1% 2ml Vial) 2 ml PRN 1X PRN ID PRIOR TO IV START; Start 02/11/19 at 07:00; Stop 02/12/19 at 06:59; Status DC Hydromorphone HCl (Dilaudid) 0.5 mg PRN Q10MIN PRN IV SEV PAIN, Second choice; Start 02/11/19 at 07:00; Stop 02/12/19 at 06:59; Status DC Prochlorperazine Edisylate (Compazine) 5 mg PACU PRN PRN IV NAUSEA, MRX1; Start 02/11/19 at 07:00; Stop 02/12/19 at 06:59; Status DC Cefazolin Sodium/ Dextrose 50 ml @ 100 mls/hr 1X PREOP PRN IV PRIOR TO PROCEDURE Last administered on 02/11/19at 14:12; Start 02/11/19 at 06:00; Stop 02/11/19 at 18:00; Status DC Gelatin (Gelfoam Size 100) 1 each STK-MED ONCE .ROUTE Last administered on 02/11/19at 15:30; Start 02/11/19 at 12:07; Stop 02/11/19 at 13:07; Status DC Mupirocin (Bactroban) 22 edda STK-MED ONCE .ROUTE Last administered on 02/11/19at 16:47; Start 02/11/19 at 12:07; Stop 02/11/19 at 13:07; Status DC Epinephrine HCl (EPINEPHrine SYRINGE) 1 mg STK-MED ONCE .ROUTE Last administere d on 02/11/19at 15:30; Start 02/11/19 at 12:07; Stop 02/11/19 at 13:07; Status DC Lidocaine/ Epinephrine (LIDOCAINE 1%-EPI 1:100,000 Multi-Dose) 20 ml STK-MED ONCE .ROUTE Last administered on 02/11/19at 14:24; Start 02/11/19 at 12:07; Stop 02/11/19 at 13:07; Status DC Glycopyrrolate (Robinul) 1 mg STK-MED ONCE .ROUTE ; Start 02/11/19 at 13:40; Stop 02/11/19 at 14:10; Status DC Rocuronium Rossiter (Zemuron) 50 mg STK-MED ONCE .ROUTE ; Start 02/11/19 at 13:41; Stop 02/11/19 at 14:10; Status DC Fentanyl Citrate (Fentanyl 2ml Vial) 100 mcg STK-MED ONCE .ROUTE ; Start 02/11/19 at 13:42; Stop 02/11/19 at 14:10; Status DC Neostigmine Methylsulfate (Neostigmine Methylsulfate) 5 mg STK-MED ONCE .ROUTE ; Start 02/11/19 at 13:42; Stop 02/11/19 at 14:10; Status DC Ephedrine Sulfate (ePHEDrine PF IN SALINE SYRINGE) 50 mg STK-MED ONCE IV ; Start 02/11/19 at 14:35; Stop 02/11/19 at 14:36; Status DC Oxymetazoline HCl (Afrin) 120 spray STK-MED ONCE NS ; Start 02/11/19 at 13:43; Stop 02/11/19 at 14:43; Status DC Fentanyl Citrate (Fentanyl 2ml Vial) 100 mcg STK-MED ONCE .ROUTE ; Start 02/11/19 at 14:43; Stop 02/11/19 at 14:44; Status DC Hydralazine HCl (Apresoline Inj) 20 mg STK-MED ONCE .ROUTE ; Start 02/11/19 at 15:19; Stop 02/11/19 at 15:20; Status DC Fentanyl Citrate (Fentanyl 2ml Vial) 100 mcg STK-MED ONCE .ROUTE ; Start 02/11/19 at 15:20; Stop 02/11/19 at 15:21; Status DC Ciprofloxacin (Ciloxan Ophth) 1 drop 1X ONCE AU Last administered on 02/11/19at 15:45; Start 02/11/19 at 15:45; Stop 02/11/19 at 15:46; Status DC Fentanyl Citrate (Fentanyl 2ml Vial) 100 mcg STK-MED ONCE .ROUTE ; Start 02/11/19 at 19:32; Stop 02/11/19 at 19:33; Status DC Amoxicillin/ Clavulanate Potassium (Augmentin 875/ 125mg) 1 tab BID PO Last administered on 02/12/19at 21:16; Start 02/12/19 at 09:00; Stop 02/13/19 at 15:57; Status DC Acetaminophen (Tylenol) 1,000 mg PRN Q6HRS PRN PO MILD pain; Start 02/11/19 at 20:15 Ibuprofen (Motrin) 400 mg PRN Q6HRS PRN PO INFLAMMATION Last administered on 02/16/19 14:20; Start 02/11/19 at 20:15 Ketorolac Tromethamine (Toradol 30mg Vial) 30 mg PRN Q6HRS PRN IV MODERATE PAIN; Start 02/11/19 at 20:15; Stop 02/16/19 at 20:14; Status DC Oxycodone/ Acetaminophen (Percocet 5/325) 1 tab PRN Q6HRS PRN PO MODERATE- SEVERE PAIN Last administered on 02/17/19 05:59; Start 02/11/19 at 20:15 Morphine Sulfate (Morphine Sulfate) 1 mg PRN Q2HR PRN IV SEVERE PAIN; Start 02/11/19 at 20:45 Folic Acid (Folic Acid) 1 mg DAILY PO Last administered on 02/17/19 08:57; Start 02/12/19 at 09:00 Lisinopril (Prinivil) 40 mg DAILY PO Last administered on 02/17/19 08:57; Start 02/12/19 at 09:00 Mupirocin (Bactroban) 1 edda TID TP Last administered on 02/17/19 08:56; Start 02/11/19 at 21:00 Albuterol Sulfate (Ventolin Neb Soln) 2.5 mg PRN Q4HRS PRN NEB SHORTNESS OF BREATH Last administered on 02/14/19 16:15; Start 02/11/19 at 21:15 Azelastine HCl (Astelin) 1 spray DAILY NS Last administered on 02/17/19 08:56; Start 02/12/19 at 09:00 Fluticasone Propionate (Flonase) 2 spray DAILY NS Last administered on 02/17/19 08:56; Start 02/12/19 at 09:00 Levothyroxine Sodium (Synthroid) 50 mcg DAILY06 PO Last administered on 02/17/19 05:34; Start 02/12/19 at 06:00 Montelukast Sodium (Singulair) 10 mg QHS PO Last administered on 02/16/19 21:02; Start 02/12/19 at 21:00 Cefazolin Sodium/ Dextrose (Ancef 2gm Premix) 2 gm STK-MED ONCE IV ; Start 02/11/19 at 12:00; Stop 02/12/19 at 13:03; Status DC Meclizine HCl (Antivert) 12.5 mg PRN Q6HRS PRN PO DIZZINESS Last administered on 02/14/19at 20:43; Start 02/12/19 at 14:00 Ciprofloxacin (Cipro) 500 mg BID PO Last administered on 02/17/19at 08:57; Start 02/12/19 at 14:30 Lactobacillus Rhamnosus (Culturelle) 1 cap BID PO Last administered on 02/17/19at 08:56; Start 02/12/19 at 21:00 Throat Lozenges (Cepacol Sore Throat Lozenge) 1 joe PRN Q2HRS PRN PO SORE THROAT Last administered on 02/17/19 05:41; Start 02/13/19 at 16:00 Mupirocin (Bactroban) 1 edda TID TP Last administered on 02/17/19 08:57; Start 02/13/19 at 16:30 Albuterol/ Ipratropium (Duoneb) 3 ml RTQID NEB Last administered on 02/17/19at 07:37; Start 02/14/19 at 20:00 Nystatin (Nystop) 1 edda BID TP ; Start 02/17/19 at 11:00 Bisacodyl (Dulcolax Tab) 5 mg PRN DAILY PRN PO CONSTIPATION; Start 02/17/19 at 10:30 Active Scripts Active Reported [floxin] 0.3% Btl 4-5 Drop LEFT EAR BID Zofran (Ondansetron Hcl) 4 Mg Tablet 1 Tab SL Q6HRS PRN Percocet 5-325 Mg Tablet (Oxycodone/Acetaminophen) 1 Each Tablet 1 Tab PO PRN Q6HRS PRN Augmentin 875-125 Tablet (Amoxicillin/Potassium Clav) 1 Each Tablet 1 Tab PO BID PRN Mupirocin Ointment (Mupirocin) 22 Gm Oint...g. 1 Edda TP TID Montelukast Sodium Tablet (Montelukast Sodium) 10 Mg Tablet 1 Tab PO DAILY Lisinopril 40 Mg Tablet 1 Tab PO DAILY Levothyroxine Sodium 50 Mcg Tablet 1 Tab PO DAILY Ventolin Hfa Inhaler (Albuterol Sulfate) 18 Gm Hfa.aer.ad 2 Puff INH Q4HRS PRN Folic Acid 1 Mg Tablet 1 Tab PO DAILY Flonase Allergy Relief (Fluticasone Propionate) 9.9 Ml [place].susp 2 Sprays NS DAILY Dymista Nasal [place] (Azelastine/Fluticasone) 23 Gm [place].pump 1 [place] NS DAILY Albuterol Sulfate Neb Soln (Albuterol Sulfate) 0.63 Mg/3 Ml Vial.neb 1 Vial NEB TID Vitals/I & O Vital Sign - Last 24 Hours 02/16/19 02/16/19 02/16/19 02/16/19 11:00 13:43 15:00 15:36 Temp 97.6 98.1 97.6 98.1 Pulse 64 66 Resp 16 16 B/P (MAP) 161/46 (84) 143/45 (77) Pulse Ox 93 97 97 98 O2 Delivery Room Air Nasal Cannula Nasal Cannula Nasal Cannula O2 Flow Rate 2.0 2.0 2.0 02/16/19 02/16/19 02/16/19 02/16/19 19:25 20:00 20:12 21:02 Temp 98.3 98.3 Pulse 70 Resp 18 B/P (MAP) 164/51 (88) Pulse Ox 96 97 O2 Delivery Nasal Cannula Nasal Cannula Nasal Cannula Nasal Cannula O2 Flow Rate 2.0 2.0 2.0 2.0 02/16/19 02/17/19 02/17/19 02/17/19 23:36 01:48 03:24 05:59 Temp 98.3 98.4 98.3 98.4 Pulse 66 68 Resp 18 18 B/P (MAP) 185/78 (113) 147/60 (89) 147/60 (89) Pulse Ox 98 98 O2 Delivery Nasal Cannula Nasal Cannula Nasal Cannula O2 Flow Rate 2.0 2.0 2.0 02/17/19 02/17/19 02/17/19 02/17/19 06:59 07:00 07:35 07:38 Temp 97.9 97.9 Pulse 69 Resp 18 B/P (MAP) 199/79 (119) Pulse Ox 96 97 O2 Delivery Nasal Cannula Nasal Cannula Nasal Cannula Nasal Cannula O2 Flow Rate 2.0 2.0 2.0 2.0 02/17/19 08:57 Pulse 69 B/P (MAP) 199/79 Intake and Output 402/16/19 02/17/19 14:59 22:59 06:59 Intake Total 360 ml Balance 360 ml JENI DURHAM MD February 17, 2019 10:41
[2019-02-17] MEDS: BISACODYL 5 MG TABLET.DR. PO PRN (11:01)
[2019-02-17] MEDS: NYSTATIN TOPICAL POWDER 15GM BOTTLE. TP SCH ×2 (11:02→20:13)
[2019-02-17 11:39] LABS: BASO % 1 % (0-3); EOS # 0.2 x10^3/uL (0.0-0.7); EOS % 6 % (0-3); LYMPH # 0.6 x10^3/uL (1.0-4.8); LYMPH % 16 % (24-48); MEAN CORPUSCULAR HEMOGLOBIN 30 pg (25-35); MEAN CORPUSCULAR HGB CONC 33 g/dL (31-37); MEAN CORPUSCULAR VOLUME 94 fL (79-100); MONO # 0.5 x10^3/uL (0.0-1.1); MONO % 15 % (0-9); NEUT # 2.2 x10^3uL (1.8-7.7); NEUT % 62 % (31-73); PLATELET COUNT 168 x10^3/uL (140-400); RED BLOOD COUNT 3.63 x10^6/uL (3.50-5.40); RED CELL DISTRIBUTION WIDTH 14.1 % (11.5-14.5); WHITE BLOOD COUNT 3.5 x10^3/uL (4.0-11.0)
[2019-02-17 11:56] LABS: CALCIUM 8.8 mg/dL (8.5-10.1); CREATININE 1.4 mg/dL (0.6-1.0); GFR 35.9; POTASSIUM 4.4 mmol/L (3.5-5.1)
[2019-02-17] MEDS ORDERED: hydrALAZINE 20 MG/ML VIAL. IVP PRN (13:45)
[2019-02-17] MEDS: MONTELUKAST SODIUM 10 MG TABLET. PO SCH (20:10)
[2019-02-17] MEDS: IBUPROFEN 400 MG TABLET. PO PRN (20:11)
[2019-02-18] MEDS: BENZOCAINE/MENTHOL LOZENGE. PO PRN ×2 (01:12→03:37)
[2019-02-18 03:00] VITALS: BP 174/68
[2019-02-18] MEDS: IBUPROFEN 400 MG TABLET. PO PRN (03:37)
[2019-02-18 04:37] LABS: BASO % 1 % (0-3); EOS # 0.2 x10^3/uL (0.0-0.7); EOS % 6 % (0-3); HEMATOCRIT 33.2 % (36.0-47.0); HEMOGLOBIN 10.8 g/dL (12.0-15.5); LYMPH # 0.7 x10^3/uL (1.0-4.8); LYMPH % 18 % (24-48); MEAN CORPUSCULAR HEMOGLOBIN 31 pg (25-35); MEAN CORPUSCULAR HGB CONC 33 g/dL (31-37); MEAN CORPUSCULAR VOLUME 94 fL (79-100); MONO # 0.5 x10^3/uL (0.0-1.1); MONO % 13 % (0-9); NEUT # 2.3 x10^3uL (1.8-7.7); NEUT % 62 % (31-73); PLATELET COUNT 170 x10^3/uL (140-400); RED BLOOD COUNT 3.55 x10^6/uL (3.50-5.40); WHITE BLOOD COUNT 3.8 x10^3/uL (4.0-11.0)
[2019-02-18 04:58] LABS: CALCIUM 8.9 mg/dL (8.5-10.1); CREATININE 1.4 mg/dL (0.6-1.0); GFR 35.9; POTASSIUM 4.2 mmol/L (3.5-5.1)
[2019-02-18] MEDS: LEVOTHYROXINE 50 MCG TABLET PO SCH (05:20)
[2019-02-18 07:00] VITALS: BP 162/83
[2019-02-18] MEDS: IPRATRPIUM/ALBUTEROL 0.5/2.5MG 3 ML NEBU. NEB SCH ×3 (07:15→15:54)
[2019-02-18] MEDS: NYSTATIN TOPICAL POWDER 15GM BOTTLE. TP SCH (09:29)
[2019-02-18] MEDS: BISACODYL 5 MG TABLET.DR. PO PRN (09:29)
[2019-02-18] MEDS: AZELASTINE NASAL SPRAY 30ML BOTTLE. NS SCH (09:29)
[2019-02-18] MEDS: MUPIROCIN 2 % TOPICAL CREAM 30GM TUBE. TP SCH ×2 (09:29→13:12)
[2019-02-18] MEDS: MUPIROCIN 2 % NASAL OINTMENT 22GM TUBE. TP SCH ×2 (09:29→13:12)
[2019-02-18] MEDS: LACTOBACILLUS RHAMNOSUS GG 1 CAPSULE. PO SCH (09:29)
[2019-02-18] MEDS: FLUTICASONE 50MCG/NASAL SPRAY 16GM BOTTLE. NS SCH (09:29)
[2019-02-18] MEDS: FOLIC ACID 1 MG TABLET. PO SCH (09:29)
[2019-02-18] MEDS: LISINOPRIL 20 MG TABLET PO SCH (09:30)
[2019-02-18] MEDS: CIPROFLOXACIN HCL 250 MG TABLET. PO SCH (09:36)
--- NOTE | 2019-02-18 09:52 | PDOC ---
PROGRESS NOTES Chief Complaint Chief Complaint Tympanomastoidectomy History of Present Illness History of Present Illness Patient was seen sitting in a chair today, POD4. she is still not improved with unsteady gait The patient is not well enough to go home. Gin would like her to go to a [facility]. The patient is having some confusion . D/C TODAY D/C PLANNING 37 MIN Vitals Vitals Vital Signs Date Time Temp Pulse Resp B/P (MAP) Pulse Ox O2 Delivery O2 Flow Rate FiO2 02/18/19 09:30 71 162/83 02/18/19 07:15 95 Nasal Cannula 2.0 02/18/19 07:00 98.4 17 98.4 Physical Exam General: Alert, Oriented X3, Cooperative Heart: Regular rate, Normal S1, Normal S2, No murmurs Lungs: Clear (No wheezes, rales, or rhonchi) Abdomen: Normal bowel sounds, Soft Extremities: No clubbing, No cyanosis Skin: No rashes, No breakdown, No significant lesion Labs LABS Laboratory Tests Test 02/17/19 10:45 02/18/19 04:15 White Blood Count 3.5 x10^3/uL (4.0-11.0) 3.8 x10^3/uL (4.0-11.0) Red Blood Count 3.63 x10^6/uL (3.50-5.40) 3.55 x10^6/uL (3.50-5.40) Hemoglobin 11.0 g/dL (12.0-15.5) 10.8 g/dL (12.0-15.5) Hematocrit 34.0 % (36.0-47.0) 33.2 % (36.0-47.0) Mean Corpuscular Volume 94 fL (79-100) 94 fL (79-100) Mean Corpuscular Hemoglobin 30 pg (25-35) 31 pg (25-35) Mean Corpuscular Hemoglobin Concent 33 g/dL (31-37) 33 g/dL (31-37) Red Cell Distribution Width 14.1 % (11.5-14.5) 14.0 % (11.5-14.5) Platelet Count 168 x10^3/uL (140-400) 170 x10^3/uL (140-400) Neutrophils (%) (Auto) 62 % (31-73) 62 % (31-73) Lymphocytes (%) (Auto) 16 % (24-48) 18 % (24-48) Monocytes (%) (Auto) 15 % (0-9) 13 % (0-9) Eosinophils (%) (Auto) 6 % (0-3) 6 % (0-3) Basophils (%) (Auto) 1 % (0-3) 1 % (0-3) Neutrophils # (Auto) 2.2 x10^3uL (1.8-7.7) 2.3 x10^3uL (1.8-7.7) Lymphocytes # (Auto) 0.6 x10^3/uL (1.0-4.8) 0.7 x10^3/uL (1.0-4.8) Monocytes # (Auto) 0.5 x10^3/uL (0.0-1.1) 0.5 x10^3/uL (0.0-1.1) Eosinophils # (Auto) 0.2 x10^3/uL (0.0-0.7) 0.2 x10^3/uL (0.0-0.7) Basophils # (Auto) 0.0 x10^3/uL (0.0-0.2) 0.0 x10^3/uL (0.0-0.2) Sodium Level 140 mmol/L (136-145) 141 mmol/L (136-145) Potassium Level 4.4 mmol/L (3.5-5.1) 4.2 mmol/L (3.5-5.1) Chloride Level 101 mmol/L (98-107) 103 mmol/L (98-107) Carbon Dioxide Level 34 mmol/L (21-32) 34 mmol/L (21-32) Anion Gap 5 (6-14) 4 (6-14) Blood Urea Nitrogen 17 mg/dL (7-20) 22 mg/dL (7-20) Creatinine 1.4 mg/dL (0.6-1.0) 1.4 mg/dL (0.6-1.0) Estimated GFR (Cockcroft-Gault) 35.9 35.9 Glucose Level 87 mg/dL (70-99) 109 mg/dL (70-99) Calcium Level 8.8 mg/dL (8.5-10.1) 8.9 mg/dL (8.5-10.1) Comment Review of Relevant I have reviewed the following items jeremie (where applicable) has been applied. Labs Laboratory Tests Test 02/17/19 10:45 02/18/19 04:15 White Blood Count 3.5 x10^3/uL (4.0-11.0) 3.8 x10^3/uL (4.0-11.0) Red Blood Count 3.63 x10^6/uL (3.50-5.40) 3.55 x10^6/uL (3.50-5.40) Hemoglobin 11.0 g/dL (12.0-15.5) 10.8 g/dL (12.0-15.5) Hematocrit 34.0 % (36.0-47.0) 33.2 % (36.0-47.0) Mean Corpuscular Volume 94 fL (79-100) 94 fL (79-100) Mean Corpuscular Hemoglobin 30 pg (25-35) 31 pg (25-35) Mean Corpuscular Hemoglobin Concent 33 g/dL (31-37) 33 g/dL (31-37) Red Cell Distribution Width 14.1 % (11.5-14.5) 14.0 % (11.5-14.5) Platelet Count 168 x10^3/uL (140-400) 170 x10^3/uL (140-400) Neutrophils (%) (Auto) 62 % (31-73) 62 % (31-73) Lymphocytes (%) (Auto) 16 % (24-48) 18 % (24-48) Monocytes (%) (Auto) 15 % (0-9) 13 % (0-9) Eosinophils (%) (Auto) 6 % (0-3) 6 % (0-3) Basophils (%) (Auto) 1 % (0-3) 1 % (0-3) Neutrophils # (Auto) 2.2 x10^3uL (1.8-7.7) 2.3 x10^3uL (1.8-7.7) Lymphocytes # (Auto) 0.6 x10^3/uL (1.0-4.8) 0.7 x10^3/uL (1.0-4.8) Monocytes # (Auto) 0.5 x10^3/uL (0.0-1.1) 0.5 x10^3/uL (0.0-1.1) Eosinophils # (Auto) 0.2 x10^3/uL (0.0-0.7) 0.2 x10^3/uL (0.0-0.7) Basophils # (Auto) 0.0 x10^3/uL (0.0-0.2) 0.0 x10^3/uL (0.0-0.2) Sodium Level 140 mmol/L (136-145) 141 mmol/L (136-145) Potassium Level 4.4 mmol/L (3.5-5.1) 4.2 mmol/L (3.5-5.1) Chloride Level 101 mmol/L (98-107) 103 mmol/L (98-107) Carbon Dioxide Level 34 mmol/L (21-32) 34 mmol/L (21-32) Anion Gap 5 (6-14) 4 (6-14) Blood Urea Nitrogen 17 mg/dL (7-20) 22 mg/dL (7-20) Creatinine 1.4 mg/dL (0.6-1.0) 1.4 mg/dL (0.6-1.0) Estimated GFR (Cockcroft-Gault) 35.9 35.9 Glucose Level 87 mg/dL (70-99) 109 mg/dL (70-99) Calcium Level 8.8 mg/dL (8.5-10.1) 8.9 mg/dL (8.5-10.1) Laboratory Tests Test 02/17/19 10:45 02/18/19 04:15 White Blood Count 3.5 x10^3/uL (4.0-11.0) 3.8 x10^3/uL (4.0-11.0) Red Blood Count 3.63 x10^6/uL (3.50-5.40) 3.55 x10^6/uL (3.50-5.40) Hemoglobin 11.0 g/dL (12.0-15.5) 10.8 g/dL (12.0-15.5) Hematocrit 34.0 % (36.0-47.0) 33.2 % (36.0-47.0) Mean Corpuscular Volume 94 fL (79-100) 94 fL (79-100) Mean Corpuscular Hemoglobin 30 pg (25-35) 31 pg (25-35) Mean Corpuscular Hemoglobin Concent 33 g/dL (31-37) 33 g/dL (31-37) Red Cell Distribution Width 14.1 % (11.5-14.5) 14.0 % (11.5-14.5) Platelet Count 168 x10^3/uL (140-400) 170 x10^3/uL (140-400) Neutrophils (%) (Auto) 62 % (31-73) 62 % (31-73) Lymphocytes (%) (Auto) 16 % (24-48) 18 % (24-48) Monocytes (%) (Auto) 15 % (0-9) 13 % (0-9) Eosinophils (%) (Auto) 6 % (0-3) 6 % (0-3) Basophils (%) (Auto) 1 % (0-3) 1 % (0-3) Neutrophils # (Auto) 2.2 x10^3uL (1.8-7.7) 2.3 x10^3uL (1.8-7.7) Lymphocytes # (Auto) 0.6 x10^3/uL (1.0-4.8) 0.7 x10^3/uL (1.0-4.8) Monocytes # (Auto) 0.5 x10^3/uL (0.0-1.1) 0.5 x10^3/uL (0.0-1.1) Eosinophils # (Auto) 0.2 x10^3/uL (0.0-0.7) 0.2 x10^3/uL (0.0-0.7) Basophils # (Auto) 0.0 x10^3/uL (0.0-0.2) 0.0 x10^3/uL (0.0-0.2) Sodium Level 140 mmol/L (136-145) 141 mmol/L (136-145) Potassium Level 4.4 mmol/L (3.5-5.1) 4.2 mmol/L (3.5-5.1) Chloride Level 101 mmol/L (98-107) 103 mmol/L (98-107) Carbon Dioxide Level 34 mmol/L (21-32) 34 mmol/L (21-32) Anion Gap 5 (6-14) 4 (6-14) Blood Urea Nitrogen 17 mg/dL (7-20) 22 mg/dL (7-20) Creatinine 1.4 mg/dL (0.6-1.0) 1.4 mg/dL (0.6-1.0) Estimated GFR (Cockcroft-Gault) 35.9 35.9 Glucose Level 87 mg/dL (70-99) 109 mg/dL (70-99) Calcium Level 8.8 mg/dL (8.5-10.1) 8.9 mg/dL (8.5-10.1) Medications Current Medications Ondansetron HCl (Zofran) 4 mg PRN Q6HRS PRN IV NAUSEA/VOMITING; Start 02/11/19 at 07:00; Stop 02/12/19 at 06:59; Status DC Fentanyl Citrate (Fentanyl 2ml Vial) 25 mcg PRN Q5MIN PRN IV MILD PAIN Last administered on 02/11/19at 18:25; Start 02/11/19 at 07:00; Stop 02/12/19 at 06:59; Status DC Fentanyl Citrate (Fentanyl 2ml Vial) 50 mcg PRN Q5MIN PRN IV MODERATE TO SEVERE PAIN Last administered on 02/11/19at 21:12; Start 02/11/19 at 07:00; Stop 02/12/19 at 06:59; Status DC Morphine Sulfate (Morphine Sulfate) 1 mg PRN Q10MIN PRN IV SEVERE PAIN; Start 02/11/19 at 07:00; Stop 02/12/19 at 06:59; Status DC Ringer's Solution 1,000 ml @ 30 mls/hr Q24H IV Last administered on 02/11/19at 12:32; Start 02/11/19 at 07:00; Stop 02/11/19 at 18:59; Status DC Lidocaine HCl (Xylocaine-Mpf 1% 2ml Vial) 2 ml PRN 1X PRN ID PRIOR TO IV START; Start 02/11/19 at 07:00; Stop 02/12/19 at 06:59; Status DC Hydromorphone HCl (Dilaudid) 0.5 mg PRN Q10MIN PRN IV SEV PAIN, Second choice; Start 02/11/19 at 07:00; Stop 02/12/19 at 06:59; Status DC Prochlorperazine Edisylate (Compazine) 5 mg PACU PRN PRN IV NAUSEA, MRX1; Start 02/11/19 at 07:00; Stop 02/12/19 at 06:59; Status DC Cefazolin Sodium/ Dextrose 50 ml @ 100 mls/hr 1X PREOP PRN IV PRIOR TO PROCEDURE Last administered on 02/11/19at 14:12; Start 02/11/19 at 06:00; Stop 02/11/19 at 18:00; Status DC Gelatin (Gelfoam Size 100) 1 each STK-MED ONCE .ROUTE Last administered on 02/11/19at 15:30; Start 02/11/19 at 12:07; Stop 02/11/19 at 13:07; Status DC Mupirocin (Bactroban) 22 edda STK-MED ONCE .ROUTE Last administered on 02/11/19at 16:47; Start 02/11/19 at 12:07; Stop 02/11/19 at 13:07; Status DC Epinephrine HCl (EPINEPHrine SYRINGE) 1 mg STK-MED ONCE .ROUTE Last administered on 02/11/19at 15:30; Start 02/11/19 at 12:07; Stop 02/11/19 at 13:07; Status DC Lidocaine/ Epinephrine (LIDOCAINE 1%-EPI 1:100,000 Multi-Dose) 20 ml STK-MED ONCE .ROUTE Last administered on 02/11/19at 14:24; Start 02/11/19 at 12:07; Stop 02/11/19 at 13:07; Status DC Glycopyrrolate (Robinul) 1 mg STK-MED ONCE .ROUTE ; Start 02/11/19 at 13:40; Stop 02/11/19 at 14:10; Status DC Rocuronium Posey (Zemuron) 50 mg STK-MED ONCE .ROUTE ; Start 02/11/19 at 13:41; Stop 02/11/19 at 14:10; Status DC Fentanyl Citrate (Fentanyl 2ml Vial) 100 mcg STK-MED ONCE .ROUTE ; Start 02/11/19 at 13:42; Stop 02/11/19 at 14:10; Status DC Neostigmine Methylsulfate (Neostigmine Methylsulfate) 5 mg STK-MED ONCE .ROUTE ; Start 02/11/19 at 13:42; Stop 02/11/19 at 14:10; Status DC Ephedrine Sulfate (ePHEDrine PF IN SALINE SYRINGE) 50 mg STK-MED ONCE IV ; Start 02/11/19 at 14:35; Stop 02/11/19 at 14:36; Status DC Oxymetazoline HCl (Afrin) 120 spray STK-MED ONCE NS ; Start 02/11/19 at 13:43; Stop 02/11/19 at 14:43; Status DC Fentanyl Citrate (Fentanyl 2ml Vial) 100 mcg STK-MED ONCE .ROUTE ; Start 02/11/19 at 14:43; Stop 02/11/19 at 14:44; Status DC Hydralazine HCl (Apresoline Inj) 20 mg STK-MED ONCE .ROUTE ; Start 02/11/19 at 15:19; Stop 02/11/19 at 15:20; Status DC Fentanyl Citrate (Fentanyl 2ml Vial) 100 mcg STK-MED ONCE .ROUTE ; Start 02/11/19 at 15:20; Stop 02/11/19 at 15:21; Status DC Ciprofloxacin (Ciloxan Ophth) 1 drop 1X ONCE AU Last administered on 02/11/19at 15:45; Start 02/11/19 at 15:45; Stop 02/11/19 at 15:46; Status DC Fentanyl Citrate (Fentanyl 2ml Vial) 100 mcg STK-MED ONCE .ROUTE ; Start 02/11/19 at 19:32; Stop 02/11/19 at 19:33; Status DC Amoxicillin/ Clavulanate Potassium (Augmentin 875/ 125mg) 1 tab BID PO Last administered on 02/12/19at 21:16; Start 02/12/19 at 09:00; Stop 02/13/19 at 15:57; Status DC Acetaminophen (Tylenol) 1,000 mg PRN Q6HRS PRN PO MILD pain; Start 02/11/19 at 20:15 Ibuprofen (Motrin) 400 mg PRN Q6HRS PRN PO INFLAMMATION Last administered on 02/18/19at 03:37; Start 02/11/19 at 20:15 Ketorolac Tromethamine (Toradol 30mg Vial) 30 mg PRN Q6HRS PRN IV MODERATE PAIN; Start 02/11/19 at 20:15; Stop 02/16/19 at 20:14; Status DC Oxycodone/ Acetaminophen (Percocet 5/325) 1 tab PRN Q6HRS PRN PO MODERATE- SEVERE PAIN Last administered on 02/17/19 14:26; Start 02/11/19 at 20:15 Morphine Sulfate (Morphine Sulfate) 1 mg PRN Q2HR PRN IV SEVERE PAIN; Start 02/11/19 at 20:45 Folic Acid (Folic Acid) 1 mg DAILY PO Last administered on 02/18/19 09:29; Start 02/12/19 at 09:00 Lisinopril (Prinivil) 40 mg DAILY PO Last administered on 02/18/19 09:30; Start 02/12/19 at 09:00 Mupirocin (Bactroban) 1 edda TID TP Last administered on 02/18/19 09:29; Start 02/11/19 at 21:00 Albuterol Sulfate (Ventolin Neb Soln) 2.5 mg PRN Q4HRS PRN NEB SHORTNESS OF BREATH Last administered on 02/14/19 16:15; Start 02/11/19 at 21:15 Azelastine HCl (Astelin) 1 spray DAILY NS Last administered on 02/18/19 09:29; Start 02/12/19 at 09:00 Fluticasone Propionate (Flonase) 2 spray DAILY NS Last administered on 02/18/19 09:29; Start 02/12/19 at 09:00 Levothyroxine Sodium (Synthroid) 50 mcg DAILY06 PO Last administered on 02/18/19 05:20; Start 02/12/19 at 06:00 Montelukast Sodium (Singulair) 10 mg QHS PO Last administered on 02/17/19 20:10; Start 02/12/19 at 21:00 Cefazolin Sodium/ Dextrose (Ancef 2gm Premix) 2 gm STK-MED ONCE IV ; Start 02/11/19 at 12:00; Stop 02/12/19 at 13:03; Status DC Meclizine HCl (Antivert) 12.5 mg PRN Q6HRS PRN PO DIZZINESS Last administered on 02/14/19 20:43; Start 02/12/19 at 14:00 Ciprofloxacin (Cipro) 500 mg BID PO Last administered on 02/18/19 09:36; Start 02/12/19 at 14:30 Lactobacillus Rhamnosus (Culturelle) 1 cap BID PO Last administered on 02/18/19 09:29; Start 02/12/19 at 21:00 Throat Lozenges (Cepacol Sore Throat Lozenge) 1 joe PRN Q2HRS PRN PO SORE THROAT Last administered on 02/18/19 03:37; Start 02/13/19 at 16:00 Mupirocin (Bactroban) 1 edda TID TP Last administered on 02/18/19 09:29; Start 02/13/19 at 16:30 Albuterol/ Ipratropium (Duoneb) 3 ml RTQID NEB Last administered on 02/18/19 07:15; Start 02/14/19 at 20:00 Nystatin (Nystop) 1 edda BID TP Last administered on 02/18/19 09:29; Start 02/17/19 at 11:00 Bisacodyl (Dulcolax Tab) 5 mg PRN DAILY PRN PO CONSTIPATION Last administered on 02/18/19 09:29; Start 02/17/19 at 10:30 Hydralazine HCl (Apresoline Inj) 10 mg PRN Q4HRS PRN IVP ELEVATED BP, SEE COMMENTS; Start 02/17/19 at 13:45 Active Scripts Active Reported [floxin] 0.3% Btl 4-5 Drop LEFT EAR BID Zofran (Ondansetron Hcl) 4 Mg Tablet 1 Tab SL Q6HRS PRN Percocet 5-325 Mg Tablet (Oxycodone/Acetaminophen) 1 Each Tablet 1 Tab PO PRN Q6HRS PRN Augmentin 875-125 Tablet (Amoxicillin/Potassium Clav) 1 Each Tablet 1 Tab PO BID PRN Mupirocin Ointment (Mupirocin) 22 Gm Oint...g. 1 Edda TP TID Montelukast Sodium Tablet (Montelukast Sodium) 10 Mg Tablet 1 Tab PO DAILY Lisinopril 40 Mg Tablet 1 Tab PO DAILY Levothyroxine Sodium 50 Mcg Tablet 1 Tab PO DAILY Ventolin Hfa Inhaler (Albuterol Sulfate) 18 Gm Hfa.aer.ad 2 Puff INH Q4HRS PRN Folic Acid 1 Mg Tablet 1 Tab PO DAILY Flonase Allergy Relief (Fluticasone Propionate) 9.9 Ml [place].susp 2 Sprays NS DAILY Dymista Nasal [place] (Azelastine/Fluticasone) 23 Gm [place].pump 1 [place] NS DAILY Albuterol Sulfate Neb Soln (Albuterol Sulfate) 0.63 Mg/3 Ml Vial.neb 1 Vial NEB TID Vitals/I & O Vital Sign - Last 24 Hours 02/17/19 02/17/19 02/17/19 02/17/19 11:00 12:01 14:26 15:00 Temp 98.6 98.6 98.6 98.6 Pulse 56 67 Resp 18 18 B/P (MAP) 168/53 (91) 136/55 (82) Pulse Ox 96 98 O2 Delivery Nasal Cannula Nasal Cannula Nasal Cannula Nasal Cannula O2 Flow Rate 2.0 2.0 2.0 2.0 02/17/19 02/17/19 02/17/19 02/17/19 15:30 15:33 19:00 20:18 Temp 97.6 97.6 Pulse 65 Resp 14 B/P (MAP) 161/62 (95) Pulse Ox 96 O2 Delivery Nasal Cannula Nasal Cannula Nasal Cannula Nasal Cannula O2 Flow Rate 2.0 2.0 2.0 2.0 02/17/19 02/18/19 02/18/19 02/18/19 22:58 03:00 07:00 07:15 Temp 97.9 97.7 98.4 97.9 97.7 98.4 Pulse 74 77 71 Resp 16 18 17 B/P (MAP) 141/47 (78) 174/68 (103) 162/83 (109) Pulse Ox 96 95 95 95 O2 Delivery Nasal Cannula Nasal Cannula Nasal Cannula Nasal Cannula O2 Flow Rate 2.0 2.0 2.0 2.0 02/18/19 09:30 Pulse 71 B/P (MAP) 162/83 Intake and Output 02/17/19 02/17/19 02/18/19 14:59 22:59 06:59 Intake Total 270 ml 180 ml Balance 270 ml 180 ml JENI DURHAM MD February 18, 2019 09:52
[2019-02-18 10:56] VITALS: BP 135/78
[2019-02-18] MEDS ORDERED: SODIUM PHOSPHATES 19/7GM 133 ML ENEMA. PR ONE (12:45)
--- NOTE | 2019-02-18 13:27 | SNU/HH DC ---
DISCHARGE ORDERS DISCHARGE INFORMATION: CONDITION ON DISCHARGE: Stable CODE STATUS: Code Status: Full GROUP HOME: SNF STAY <30 DAYS: Yes HOSPICE: HOSPICE: No HOSPICE EVAL & TREAT: No LTAC: ADMIT TO LTAC: No POST DISCHARGE ORDERS: ACTIVITY ORDERS: Activity as tolerated, Bedrest today DIET AFTER DISCHARGE: Cardiac CHECKS AFTER DISCHARGE: CHECKS AFTER DISCHARGE: Check blood press - daily TREATMENT/EQUIPMENT ORDERS: Physical Therapy For: Evalulation/Treatment Occupational Therapy For: Evaluation/Treatment Speech Language Pathology For: Evaluation/Treatment DISCHARGE MEDICATIONS: Home Meds Reported Medications [floxin] 0.3% BTL No Conflict Check, 4-5 DROP LEFT EAR BID 02/11/19 Ondansetron Hcl (ZOFRAN) 4 Mg Tablet, 1 TAB SL Q6HRS PRN for NAUSEA/VOMITING, #20 TAB 02/11/19 Oxycodone/Apap 5-325 (PERCOCET 5-325 MG TABLET ) 1 Each Tablet, 1 TAB PO PRN Q6HRS PRN for PAIN, #20 TAB 0 Refills 02/11/19 Amoxicillin/Potassium Clav (AUGMENTIN 875-125 TABLET) 1 Each Tablet, 1 TAB PO BID PRN for SEE COMMENTS, #28 TAB 0 Refills 02/11/19 Mupirocin (MUPIROCIN OINTMENT) 22 Gm Oint...g., 1 DOUG TP TID for WOUND CARE, #1 TUBE 02/11/19 Montelukast Sodium (MONTELUKAST SODIUM TABLET) 10 Mg Tablet, 1 TAB PO DAILY for ALLERGIES, #30 TAB 5 Refills 02/11/19 Lisinopril (LISINOPRIL) 40 Mg Tablet, 1 TAB PO DAILY for B/P, #30 TAB 5 Refills 02/11/19 Levothyroxine Sodium (LEVOTHYROXINE SODIUM) 50 Mcg Tablet, 1 TAB PO DAILY for THYROID, #30 TAB 5 Refills 02/11/19 Albuterol Sulfate (VENTOLIN HFA INHALER) 18 Gm Hfa.aer.ad, 2 PUFF INH Q4HRS PRN for BREATHING, INHALER 0 Refills 02/11/19 Folic Acid (FOLIC ACID) 1 Mg Tablet, 1 TAB PO DAILY for VITAMIN, #90 TAB 1 Refill 02/11/19 Fluticasone Propionate (Flonase Allergy Relief) 9.9 Ml [place].susp, 2 SPRAYS NS DAILY for BREATHING, BOTTLE 02/11/19 Azelastine/Fluticasone (DYMISTA NASAL SPRAY) 23 Gm [place].pump, 1 SPRAY NS DAILY for BREATHING, #23 GM 6 Refills 02/11/19 Albuterol Sulfate (ALBUTEROL SULFATE NEB SOLN) 0.63 Mg/3 Ml Vial.neb, 1 VIAL NEB TID for BREATHING, #225 ML 02/11/19 JENI DURHAM MD February 18, 2019 13:27
[2019-02-18 15:00] VITALS: BP 168/58
== END 2019-02-18 17:00 | DRG 131 ==
LOC: SURG 11:16 → 4 NORTH 21:10 → OBSVTOIN 02-13 12:28
PROVIDERS: ADMIT Internal Medicine; ATTEND Internal Medicine
PROC: 0JB Subcutaneous Tissue and Fascia, Excision (ICD-10-PCS; 2019-02-11)
PROC: 097G8ZZ Dilation of Left Eustachian Tube, Via Natural or Artificial Opening Endoscopic (ICD-10-PCS; 2019-02-11)
PROC: 097F8ZZ Dilation of Right Eustachian Tube, Via Natural or Artificial Opening Endoscopic (ICD-10-PCS; 2019-02-11)
PROC: 0NB Head and Facial Bones, Excision (ICD-10-PCS; principal; 2019-02-11 13:45)
PROC: 09R Ear, Nose, Sinus, Replacement (ICD-10-PCS; 2019-02-11 13:45)
DX: H66.92 Otitis media, unspecified, left ear (principal); G93.41 Metabolic encephalopathy; H72.92 Unspecified perforation of tympanic membrane, left ear; H70.12 Chronic mastoiditis, left ear; H90.8 Mixed conductive and sensorineural hearing loss, unspecified; H69.93 Unspecified Eustachian tube disorder, bilateral; E78.5 Hyperlipidemia, unspecified; F03.90 Unspecified dementia, unspecified severity, without behavioral disturbance, psychotic disturbance, mood disturbance, and anxiety; H81.10 Benign paroxysmal vertigo, unspecified ear; H81.12 Benign paroxysmal vertigo, left ear; I10 Essential (primary) hypertension; M19.90 Unspecified osteoarthritis, unspecified site
CPT/HCPCS: 36415; 80048; 85025; 88304; 94640; 94760; A7015; G0378; G0379; J0171; J0360; J0696; J2710; J3010; J3490; J7030; J7120; J7613; J7620; J8597; 97110; 97116; 97530; 97535; A4461